=== PATIENT | female | born 1960 | race Caucasian/White ===

== ENCOUNTER → 2017-01-28 | Outpatient (CLI) | payer OTHER ==
[~2017-01-28] MED LIST: AMBI10TA PO; ASPI81TA21 PO; ATEN100T PO; AUGM500T34 PO; AUGM875T28 PO; BACITAB PO; CENTTAB PO; CETI10TA PO; ESTR625TA PO; FENO160T10 PO; FENO200C PO; FLUC10TA PO; K-TA10TA2 PO; LEVO50TA5 PO; LOPE2TAB3 PO; OYSCTAB PO; SERT25TA PO; TIZA4CAP3 PO; TRAM50TA2 PO; TRIA37.53 PO; VICO5TAB16 PO; VYTO10TA22 PO; WELLTAB40 PO
[2017-01-28 19:46] LABS: MEAN CORPUSCULAR HEMOGLOBIN 30.1 pg (27.0-33.0); MEAN CORPUSCULAR HGB CONC 32.8 g/dl (32.0-36.5); MEAN CORPUSCULAR VOLUME 91.8 fl (80.0-96.0); RED CELL DISTRIBUTION WIDTH 12.8 % (11.5-14.5); WHITE BLOOD COUNT 6.5 K/mm3 (4.0-10.0)
[2017-01-28 20:22] LABS: ALBUMIN 3.7 GM/DL (3.2-5.2); ALBUMIN/GLOBULIN RATIO 1.19 (1.00-1.93); BILIRUBIN,TOTAL 0.5 MG/DL (0.2-1.0); CALCIUM LEVEL 9.4 MG/DL (8.5-10.1); CREATININE FOR GFR 1.05 MG/DL (0.55-1.02); GLOMERULAR FILTRATION RATE 57.9 (>51); POTASSIUM SERUM 3.8 MEQ/L (3.5-5.1); TOTAL PROTEIN 6.8 GM/DL (6.4-8.2)
== END ==
LOC: M WUC 09:22
PROVIDERS: ATTEND Family Medicine
DX: E78.2 Mixed hyperlipidemia (principal); I10 Essential (primary) hypertension; E03.9 Hypothyroidism, unspecified

== ENCOUNTER 2017-06-10 18:18 | Emergency (ER) | payer OTHER ==
[~2017-06-10] VITALS: Ht 154.9 cm; Wt 172.0 kg
[2017-06-10] MEDS ORDERED: BIOT50005 SL (18:30)
[2017-06-10] MEDS ORDERED: VITA100T20 PO (18:30)
--- NOTE | 2017-06-10 20:00 | REPUSA ---
Clinical history: Pain, swelling. Findings: The common femoral, superficial femoral, popliteal, and other deep venous structures compre ss normally and demonstrate normal color Doppler flow. Normal venous waveforms with augmentation are seen. There is a cyst in the popliteal fossa measuring 3.0 x 0.8 x 1.2 cm. Impression: No evidence of deep vein thrombosis in the right femoral popliteal venous system. Right-sided Mir c yst.
[2017-06-10] MEDS ORDERED: NORCOTAB PO (20:54)
[2017-06-10] MEDS ORDERED: NORCO, ANEXSIA 5/325MG TABLET (HYDROcodone/ACETAMINOPHEN) PO ONE (21:00)
[2017-06-10 21:07] VITALS: BP 147/76
--- NOTE | 2017-06-11 07:42 | REP ---
Right 85 views: There are no comparisons. Mineralization and joint spaces are normal. There is no fracture or dislocation. There is no effusion. No calcifications or foreign bodies. Impression: Negative right knee. Sign taking Signed by Austin Wagner MD 06/11/2017 07:34 A
== END 2017-06-10 21:09 | disposition home or self-care (01) ==
LOC: M ED 20:00
DX: M71.21 Synovial cyst of popliteal space [Baker], right knee (principal); R93.7 Abnormal findings on diagnostic imaging of other parts of musculoskeletal system; I10 Essential (primary) hypertension; F33.9 Major depressive disorder, recurrent, unspecified; E06.3 Autoimmune thyroiditis; Z79.82 Long term (current) use of aspirin; Z79.899 Other long term (current) drug therapy; Z88.8 Allergy status to other drugs, medicaments and biological substances; Z98.0 Intestinal bypass and anastomosis status; Z98.890 Other specified postprocedural states

== ENCOUNTER → 2017-08-01 | Outpatient (REF) | payer OTHER | LOC: M LAB REF 08:45 | DX: L08.9 Local infection of the skin and subcutaneous tissue, unspecified (principal) ==

== ENCOUNTER 2017-10-06 17:46 | Emergency (ER) | payer OTHER ==
[2017-10-06 18:57] LABS: KETONE, URINE AUTO RFX NEGATIVE (NEGATIVE); MUCUS, URINE RFX SMALL (NEGATIVE); NITRITE, URINE AUTO RFX NEGATIVE (NEGATIVE); RBC, URINE AUTO RFX 3 /HPF (0-3); SPECIFIC GRAVITY UR AUTO RFX 1.024 (1.002-1.035); SQUAM EPITHELIAL CELL UR AURFX 1 /HPF (0-6); WBC, URINE AUTO RFX 4 /HPF (0-3)
[2017-10-06 19:06] LABS: LEUKOCYTE ESTERASE UR AUTO RFX 2+ (NEGATIVE)
[2017-10-06] MEDS: BACTRIM 160MG/800MG DS TAB PO (20:10)
== END 2017-10-06 20:16 | disposition home or self-care (01) ==
LOC: M ED 17:46
DX: N39.0 Urinary tract infection, site not specified (principal); I10 Essential (primary) hypertension; E78.00 Pure hypercholesterolemia, unspecified; E06.3 Autoimmune thyroiditis; Z98.84 Bariatric surgery status; Z79.899 Other long term (current) drug therapy; Z98.2 Presence of cerebrospinal fluid drainage device; Z79.890 Hormone replacement therapy; Z88.8 Allergy status to other drugs, medicaments and biological substances
CPT/HCPCS: 81001

== ENCOUNTER → 2018-02-06 | Outpatient (REF) | payer OTHER | LOC: M LAB REF 19:12 | DX: R30.0 Dysuria (principal) ==

== ENCOUNTER → 2018-03-15 | Outpatient (CLI) | payer OTHER | LOC: M WHC 13:04 | DX: Z12.31 Encounter for screening mammogram for malignant neoplasm of breast (principal) | CPT/HCPCS: 77067 ==

== ENCOUNTER → 2018-05-10 | Outpatient (CLI) | payer OTHER ==
[2018-05-10 15:38] LABS: FREE T4 1.17 NG/DL (0.76-1.46)
[2018-05-10 15:39] LABS: TOTAL T3 88.7 NG/DL (60.0-181.0)
== END ==
LOC: M WUC 11:03
DX: E04.2 Nontoxic multinodular goiter (principal); E03.9 Hypothyroidism, unspecified; E06.3 Autoimmune thyroiditis
CPT/HCPCS: 84480

== ENCOUNTER → 2018-05-10 | Outpatient (CLI) | payer OTHER ==
[2018-05-10 15:23] LABS: HEMOGLOBIN 13.4 g/dl (12.0-15.5); MEAN CORPUSCULAR HEMOGLOBIN 30.2 pg (27.0-33.0); MEAN CORPUSCULAR HGB CONC 32.7 g/dl (32.0-36.5); MEAN CORPUSCULAR VOLUME 92.3 fl (80.0-96.0); PLATELET COUNT, AUTOMATED 351 10^3/uL (150-450); RED BLOOD COUNT 4.44 10^6/uL (4.00-5.40); RED CELL DISTRIBUTION WIDTH 12.6 % (11.5-14.5); WHITE BLOOD COUNT 6.5 10^3/uL (4.0-10.0)
[2018-05-10 15:42] LABS: ALBUMIN 3.8 GM/DL (3.2-5.2); ALBUMIN/GLOBULIN RATIO 1.27 (1.00-1.93); ALKALINE PHOSPHATASE 54 U/L (45-117); ALT/SGPT 28 U/L (12-78); ANION GAP 9 MEQ/L (8-16); AST/SGOT 18 U/L (7-37); BILIRUBIN,TOTAL 0.5 MG/DL (0.2-1.0); BLOOD UREA NITROGEN 24 MG/DL (7-18); CALCIUM LEVEL 9.1 MG/DL (8.5-10.1); CARBON DIOXIDE LEVEL 30 MEQ/L (21-32); CHLORIDE LEVEL 104 MEQ/L (98-107); CHOLESTEROL LEVEL 196 MG/DL (<200); CHOLESTEROL RISK RATIO 3.015 (<5); CREATININE FOR GFR 1.07 MG/DL (0.55-1.30); GLOMERULAR FILTRATION RATE 56.3 (>51); GLUCOSE, FASTING 78 MG/DL (70-100); HDL CHOLESTEROL 65 MG/DL (>40); LDL CHOLESTEROL 112 MG/DL (<100); NON-HDL-C 131 MG/DL; POTASSIUM SERUM 3.5 MEQ/L (3.5-5.1); SODIUM LEVEL 143 MEQ/L (136-145); TOTAL 25(OH) VITAMIN D 48.2 NG/ML (30.0-100.0); TOTAL PROTEIN 6.8 GM/DL (6.4-8.2); TRIGLYCERIDES LEVEL 96 MG/DL (<150)
== END ==
LOC: M WUC 10:59
DX: E78.2 Mixed hyperlipidemia (principal); E55.9 Vitamin D deficiency, unspecified; I10 Essential (primary) hypertension
CPT/HCPCS: 84443

== ENCOUNTER → 2018-10-17 | Outpatient (CLI) | payer OTHER ==
[~2018-10-17] MED LIST changes: +BACT800T5 PO; +BIOT50005 SL; +DIFL150T PO; +HYDR-3715 PO; -SERT25TA PO; +SERT25TA85 PO; +TIZA4CAP PO; -TIZA4CAP3 PO; -VICO5TAB16 PO; +VICO5TAB17 PO; +VITA100T51 PO
[2018-10-17 13:03] LABS: ALBUMIN 4.2 GM/DL (3.2-5.2); BILIRUBIN,DIRECT 0.2 MG/DL (0.0-0.2); BILIRUBIN,TOTAL 0.4 MG/DL (0.2-1.0); CALCIUM LEVEL 9.5 MG/DL (8.5-10.1); CHOLESTEROL RISK RATIO 2.911 (<5); CREATININE FOR GFR 1.1 MG/DL (0.55-1.30); FREE T3 2.1 PG/ML (2.2-4.0); FREE T4 1.2 NG/DL (0.76-1.46); GLOMERULAR FILTRATION RATE 54.5 (>51); POTASSIUM SERUM 3.7 MEQ/L (3.5-5.1); THYROID STIMULATING HORMONE 3.49 uIU/ML (0.358-3.740); TOTAL 25(OH) VITAMIN D 55.1 NG/ML (30.0-100.0); TOTAL PROTEIN 6.7 GM/DL (6.4-8.2)
[2018-10-17 13:47] LABS: MALB URINE SIEMENS 7.3 MG/L
== END ==
LOC: M WUC 09:33
PROVIDERS: ATTEND Family Medicine
DX: E55.9 Vitamin D deficiency, unspecified (principal); I10 Essential (primary) hypertension; E78.2 Mixed hyperlipidemia; E03.9 Hypothyroidism, unspecified; E87.6 Hypokalemia

== ENCOUNTER → 2018-12-13 | Outpatient (CLI) | payer OTHER ==
[2018-12-13 13:17] LABS: HEMATOCRIT 39.9 % (36.0-47.0); HEMOGLOBIN 13.1 g/dl (12.0-15.5); MEAN CORPUSCULAR HEMOGLOBIN 30.5 pg (27.0-33.0); MEAN CORPUSCULAR HGB CONC 32.8 g/dl (32.0-36.5); MEAN CORPUSCULAR VOLUME 92.8 fl (80.0-96.0); PLATELET COUNT, AUTOMATED 321 10^3/uL (150-450)
[2018-12-13 13:18] LABS: ALBUMIN 3.8 GM/DL (3.2-5.2); BILIRUBIN,TOTAL 0.4 MG/DL (0.2-1.0); CALCIUM LEVEL 9.3 MG/DL (8.5-10.1); CHOLESTEROL RISK RATIO 2.703 (<5); CREATININE FOR GFR 1.11 MG/DL (0.55-1.30); GLOMERULAR FILTRATION RATE 53.9 (>51); PHOSPHORUS LEVEL 3.7 MG/DL (2.5-4.9); POTASSIUM SERUM 3.7 MEQ/L (3.5-5.1); THYROID STIMULATING HORMONE 5.19 uIU/ML (0.358-3.740); TOTAL PROTEIN 6.6 GM/DL (6.4-8.2)
[2018-12-13 13:20] LABS: PTH INTACT 24.7 PG/ML (18.5-88.0); TOTAL 25(OH) VITAMIN D 53.9 NG/ML (30.0-100.0)
== END ==
LOC: M WUC 08:47
PROVIDERS: ATTEND Family Medicine
DX: N18.3 Chronic kidney disease, stage 3 (moderate) (principal)

== ENCOUNTER → 2019-07-31 | Outpatient (CLI) | payer OTHER ==
--- NOTE | 2019-07-31 17:02 | REP ---
BILATERAL SCREENING DIGITAL MAMMOGRAM WITH 3D TOMOSYNTHESIS: There are no palpable abnormalities or other breast complaints. The the patient states she had a clinical breast examination November,. The Tyrer-Cuzick Lifetime Breast Cancer Risk Score is: 7.6% . Comparison is 03/15/2018. There are no other comparison studies available. There are scattered areas of fibroglandular density. There is no dominant mass, micro calcific cluster or architectural distortion that would indicate malignancy. 10 calcifications, unchanged. There are no additional findings on 3D tomosynthesiss. There is no change from the prior study. Impression: BIRADS/ACR category II mammogram. Benign findings. Recommendation: Routine annual screening mammography. This mammogram was interpreted with the aid of a FDA approved computer-aided detection system. A. Negative mammogram reports should not delay biopsy if a dominant or clinically suspicious mass is present. B. Not all breast cancers are identified by mammography or tomosynthesis. C. Adenosis and dense breasts may obscure an underlying neoplasm. Patient letter M1. Electronically Signed by Austin Wagner MD 07/31/2019 04:53 P
== END ==
LOC: M WHC 11:36
PROVIDERS: ATTEND Family Medicine
DX: Z12.31 Encounter for screening mammogram for malignant neoplasm of breast (principal)

== ENCOUNTER → 2020-08-11 | Outpatient (CLI) | payer OTHER ==
[2020-08-11 16:59] LABS: ALBUMIN 3.6 GM/DL (3.2-5.2); ALT/SGPT 34 U/L (12-78); BILIRUBIN,DIRECT 0.1 MG/DL (0.0-0.2); BILIRUBIN,TOTAL 0.4 MG/DL (0.2-1.0); BLOOD UREA NITROGEN 18 MG/DL (7-18); CALCIUM LEVEL 8.8 MG/DL (8.5-10.1); CARBON DIOXIDE LEVEL 30 MEQ/L (21-32); CHLORIDE LEVEL 104 MEQ/L (98-107); CHOLESTEROL LEVEL 211 MG/DL (<200); CHOLESTEROL RISK RATIO 3.576 (<5); CPK CREATINE PHOSPHOKINASE 34 U/L (26-192); CREATININE FOR GFR 0.91 MG/DL (0.55-1.30); FREE T3 2.3 PG/ML (2.2-4.0); FREE T4 1.07 NG/DL (0.76-1.46); GLOMERULAR FILTRATION RATE > 60.0 (>51); GLUCOSE, FASTING 95 MG/DL (70-100); HDL CHOLESTEROL 59 MG/DL (>40); LDL CHOLESTEROL 118 MG/DL (<100); NON-HDL-C 152 MG/DL; POTASSIUM SERUM 3.5 MEQ/L (3.5-5.1); SODIUM LEVEL 141 MEQ/L (136-145); TOTAL PROTEIN 6.3 GM/DL (6.4-8.2); TRIGLYCERIDES LEVEL 171 MG/DL (<150)
== END ==
LOC: M WUC 11:15
PROVIDERS: ATTEND Family Medicine
DX: E03.9 Hypothyroidism, unspecified (principal); E78.2 Mixed hyperlipidemia

== ENCOUNTER → 2020-08-24 | Outpatient (CLI) | payer OTHER ==
--- NOTE | 2020-08-24 19:24 | ECGEPIP ---
[facility] Test Date: 2020-08-24 Pat Name: ARMANDO VALLES Department: Room: - Gender: Female [employer] Molder: MICHELLE : 1960 Requested By: Vishal Nelson @ [facility] Order Number: [id number] Reading MD: Hiren Ramirez Measurements Intervals [place] Rate: 54 P: 33 MI: 178 QRS: 32 QRSD: 94 T: 19 QT: 422 QTc: 400 Interpretive Statements Sinus bradycardia NON-SPECIFIC STT ABNORMALITIES SIMILAR TO 04/26/2015, HR IS SLOWER TODAY Electronically Signed on 08-24-2020 19:24:58 EST by Hiren Ramirez
== END ==
LOC: M LAB 10:59
PROVIDERS: ATTEND Orthopaedic Surgery
DX: Z01.810 Encounter for preprocedural cardiovascular examination (principal); Z79.899 Other long term (current) drug therapy

== ENCOUNTER → 2021-01-06 | Outpatient (CLI) | payer OTHER, SELFPAY ==
[2021-01-06 11:23] LABS: BASO % 0.2 % (0.0-1.0); EOS % 0.1 % (0.0-3.0); HEMATOCRIT 44.3 % (36.0-47.0); HEMOGLOBIN 14.7 g/dl (12.0-15.5); LYMPH # 1.2 10^3/uL (1.5-5.0); LYMPH % 9.2 % (24.0-44.0); MEAN CORPUSCULAR HEMOGLOBIN 30.2 pg (27.0-33.0); MEAN CORPUSCULAR HGB CONC 33.2 g/dl (32.0-36.5); MEAN CORPUSCULAR VOLUME 91.2 fl (80.0-96.0); MONO # 0.4 10^3/uL (0.0-0.8); MONO % 2.7 % (2.0-8.0); NEUTROPHILS # 11.2 10^3/uL (1.5-8.5); NEUTROPHILS % 87.3 % (36.0-66.0); PLATELET COUNT, AUTOMATED 378 10^3/uL (150-450); RED BLOOD COUNT 4.86 10^6/uL (4.00-5.40); WHITE BLOOD COUNT 12.9 10^3/uL (4.0-10.0)
[2021-01-06 12:23] LABS: ALBUMIN 3.7 GM/DL (3.2-5.2); ALT/SGPT 31 U/L (12-78); BILIRUBIN,TOTAL 0.3 MG/DL (0.2-1.0); BLOOD UREA NITROGEN 18 MG/DL (7-18); CALCIUM LEVEL 9.1 MG/DL (8.5-10.1); CARBON DIOXIDE LEVEL 25 MEQ/L (21-32); CHLORIDE LEVEL 103 MEQ/L (98-107); CREATININE FOR GFR 0.74 MG/DL (0.55-1.30); GLOMERULAR FILTRATION RATE > 60.0 (>51); GLUCOSE, FASTING 102 MG/DL (70-100); HEPATITIS B SURFACE ANTIGEN NEGATIVE (NEGATIVE); SODIUM LEVEL 137 MEQ/L (136-145)
[2021-01-06 13:45] LABS: HEPATITIS B CORE ANTIBODY IGM NEGATIVE (NEGATIVE); HIV 1&2 SCREEN CENTAUR NEGATIVE (NEGATIVE)
[2021-01-06 13:46] LABS: HEPATITIS A ANTIBODY IGM NEGATIVE (NEGATIVE)
== END ==
LOC: M LAB 09:56
PROVIDERS: ATTEND Dermatology
DX: R21 Rash and other nonspecific skin eruption (principal)
CPT/HCPCS: 36415; 80053; 83516; 85025; 86705; 86709; 86803; 87340; 87389; G0463

== ENCOUNTER → 2021-01-06 | Outpatient (REF) | payer OTHER | LOC: M SFHCDERM 09:24 | PROVIDERS: ATTEND Dermatology | DX: R21 Rash and other nonspecific skin eruption (principal) ==

== ENCOUNTER → 2021-01-21 | Outpatient (REF) | payer OTHER ==
[~2021-01-21] MED LIST changes: -FENO200C PO; +FENO200C19 PO
== END ==
LOC: M LAB REF 18:22
PROVIDERS: ATTEND Physician Assistant
DX: L92.9 Granulomatous disorder of the skin and subcutaneous tissue, unspecified (principal)

== ENCOUNTER → 2021-02-24 | Outpatient (CLI) | payer OTHER ==
[~2021-02-24] MED LIST changes: +FENO200C PO; -FENO200C19 PO
[2021-02-24 11:31] LABS: BASO # 0.1 10^3/uL (0.0-0.2); BASO % 0.6 % (0.0-1.0); EOS # 0.1 10^3/uL (0.0-0.5); EOS % 0.6 % (0.0-3.0); HEMATOCRIT 44.5 % (36.0-47.0); HEMOGLOBIN 14.6 g/dl (12.0-15.5); LYMPH # 2.3 10^3/uL (1.5-5.0); LYMPH % 29.2 % (24.0-44.0); MEAN CORPUSCULAR HEMOGLOBIN 30.4 pg (27.0-33.0); MEAN CORPUSCULAR HGB CONC 32.8 g/dl (32.0-36.5); MEAN CORPUSCULAR VOLUME 92.5 fl (80.0-96.0); MONO # 0.7 10^3/uL (0.0-0.8); MONO % 8.2 % (2.0-8.0); NEUTROPHILS # 4.8 10^3/uL (1.5-8.5); NEUTROPHILS % 61.1 % (36.0-66.0); PLATELET COUNT, AUTOMATED 393 10^3/uL (150-450); RED BLOOD COUNT 4.81 10^6/uL (4.00-5.40); WHITE BLOOD COUNT 7.9 10^3/uL (4.0-10.0)
[2021-02-24 12:21] LABS: ALBUMIN 3.6 GM/DL (3.2-5.2); ALT/SGPT 26 U/L (12-78); BILIRUBIN,TOTAL 0.4 MG/DL (0.2-1.0); BLOOD UREA NITROGEN 11 MG/DL (7-18); CALCIUM LEVEL 9.3 MG/DL (8.8-10.2); CARBON DIOXIDE LEVEL 27 MEQ/L (21-32); CHLORIDE LEVEL 104 MEQ/L (98-107); CHOLESTEROL LEVEL 222 MG/DL (<200); CPK CREATINE PHOSPHOKINASE 47 U/L (26-192); FREE T3 2.6 PG/ML (2.2-4.0); FREE T4 1.22 NG/DL (0.76-1.46); GLOMERULAR FILTRATION RATE > 60.0 (>45); GLUCOSE, FASTING 95 MG/DL (70-100); HDL CHOLESTEROL 60 MG/DL (>40); LDL CHOLESTEROL 122 MG/DL (<100); NON-HDL-C 162 MG/DL; POTASSIUM SERUM 3.6 MEQ/L (3.5-5.1); SODIUM LEVEL 139 MEQ/L (136-145); TOTAL 25(OH) VITAMIN D 55.6 NG/ML (30.0-100.0); TOTAL PROTEIN 6.4 GM/DL (6.4-8.2); TRIGLYCERIDES LEVEL 202 MG/DL (<150); URIC ACID 6.5 MG/DL (2.6-6.0)
== END ==
LOC: M WUC 09:47
PROVIDERS: ATTEND Family Medicine
DX: E55.9 Vitamin D deficiency, unspecified (principal); I10 Essential (primary) hypertension; E03.9 Hypothyroidism, unspecified; E78.2 Mixed hyperlipidemia

== ENCOUNTER → 2021-03-24 | Outpatient (CLI) | payer OTHER ==
--- NOTE | 2021-03-24 08:39 | REP ---
INDICATION: THYROID DISORDER COMPARISON: None. TECHNIQUE: Avila scale and color evaluation of the thyroid gland using the linear high frequency transducer. FINDINGS: The thyroid gland is moderately heterogeneous with few scattered nodules noted. Right thyroid lobe measures 4.6 x 1.8 x 1.2 cm and includes 6 x 6 x 6 mm upper pole isoechoic nodule and 6 x 6 x 4 mm isoechoic midpole nodule. Isthmus measures 4.1 mm in width. Left thyroid lobe measures 3.5 x 1.4 x 1.3 cm and includes 3 x 5 x 3 mm midpole hypoechoic nodule, 7 x 4 x 8 mm lower pole hypoechoic nodule, and 7.6 x 6.2 x 4.0 mm upper pole hypoechoic nodule. IMPRESSION: Few indeterminate bilateral solid nodules measuring up to 8 mm maximal diameter in the left lobe. No prior examination is currently available for comparison. Consider follow-up examination in 12 months. <Electronically signed by David Bruno > 03/24/21 0835
== END ==
LOC: M RAD 07:22
PROVIDERS: ATTEND Family Medicine
DX: E07.9 Disorder of thyroid, unspecified (principal)

== ENCOUNTER → 2021-10-01 | Outpatient (CLI) | payer OTHER ==
[~2021-10-01] MED LIST changes: -FENO200C PO; +FENO200C19 PO
[2021-10-01 13:04] LABS: BLOOD UREA NITROGEN 10 MG/DL (7-18); CREATININE FOR GFR 0.75 MG/DL (0.55-1.30); GLOMERULAR FILTRATION RATE > 60.0 (>45); GLUCOSE, FASTING 120 MG/DL (70-100)
[2021-10-01 13:05] LABS: ALBUMIN 3.6 GM/DL (3.2-5.2); ALT/SGPT 27 U/L (12-78); BILIRUBIN,TOTAL 0.4 MG/DL (0.2-1.0); C REACTIVE PROTEIN QUANTITATIV 0.77 MG/DL (0.00-0.30); CALCIUM LEVEL 9.2 MG/DL (8.8-10.2); CARBON DIOXIDE LEVEL 28 MEQ/L (21-32); CHLORIDE LEVEL 105 MEQ/L (98-107); CHOLESTEROL LEVEL 294 MG/DL (<200); CHOLESTEROL RISK RATIO 6.125 (<5); FREE T3 2.7 PG/ML (2.2-4.0); FREE T4 1.02 NG/DL (0.76-1.46); HDL CHOLESTEROL 48 MG/DL (>40); LDL CHOLESTEROL 189 MG/DL (<100); NON-HDL-C 246 MG/DL; POTASSIUM SERUM 3.7 MEQ/L (3.5-5.1); SODIUM LEVEL 138 MEQ/L (136-145); TOTAL PROTEIN 6.5 GM/DL (6.4-8.2); TRIGLYCERIDES LEVEL 287 MG/DL (<150)
== END ==
LOC: M WUC 10:07
PROVIDERS: ATTEND Family Medicine
DX: L12.0 Bullous pemphigoid (principal); I10 Essential (primary) hypertension; E03.9 Hypothyroidism, unspecified; E78.2 Mixed hyperlipidemia

== ENCOUNTER → 2021-11-16 | Outpatient (CLI) | payer OTHER ==
[2021-11-16 10:49] LABS: ALBUMIN 3.5 GM/DL (3.2-5.2); ALT/SGPT 18 U/L (12-78); BILIRUBIN,DIRECT 0.1 MG/DL (0.0-0.2); BILIRUBIN,TOTAL 0.5 MG/DL (0.2-1.0); BLOOD UREA NITROGEN 13 MG/DL (7-18); CALCIUM LEVEL 8.5 MG/DL (8.8-10.2); CARBON DIOXIDE LEVEL 30 MEQ/L (21-32); CHLORIDE LEVEL 107 MEQ/L (98-107); CHOLESTEROL LEVEL 142 MG/DL (<200); CHOLESTEROL RISK RATIO 3.227 (<5); CREATININE FOR GFR 0.72 MG/DL (0.55-1.30); GLOMERULAR FILTRATION RATE > 60.0 (>45); GLUCOSE, FASTING 87 MG/DL (70-100); HDL CHOLESTEROL 44 MG/DL (>40); LDL CHOLESTEROL 65 MG/DL (<100); NON-HDL-C 98 MG/DL; POTASSIUM SERUM 3.7 MEQ/L (3.5-5.1); SODIUM LEVEL 140 MEQ/L (136-145); TOTAL PROTEIN 6.2 GM/DL (6.4-8.2); TRIGLYCERIDES LEVEL 164 MG/DL (<150); URIC ACID 4.8 MG/DL (2.6-6.0)
== END ==
LOC: M WUC 08:34
PROVIDERS: ATTEND Family Medicine
DX: E78.2 Mixed hyperlipidemia (principal); I10 Essential (primary) hypertension

== ENCOUNTER → 2022-02-09 | Outpatient (CLI) | payer OTHER ==
[~2022-02-09] MED LIST changes: -TRIA37.53 PO; +TRIA37.577 PO
== END ==
LOC: M WHC 12:26
PROVIDERS: ATTEND Family Medicine
DX: Z12.31 Encounter for screening mammogram for malignant neoplasm of breast (principal); N63.22 Unspecified lump in the left breast, upper inner quadrant

== ENCOUNTER → 2022-02-11 | Outpatient (CLI) | payer OTHER ==
[2022-02-11 16:24] LABS: BASO % 0.3 % (0.0-1.0); HEMATOCRIT 42.5 % (36.0-47.0); HEMOGLOBIN 14.2 g/dl (12.0-15.5); LYMPH # 0.8 10^3/uL (1.5-5.0); LYMPH % 7.2 % (24.0-44.0); MEAN CORPUSCULAR HEMOGLOBIN 29.6 pg (27.0-33.0); MEAN CORPUSCULAR HGB CONC 33.4 g/dl (32.0-36.5); MEAN CORPUSCULAR VOLUME 88.7 fl (80.0-96.0); MONO # 0.2 10^3/uL (0.0-0.8); MONO % 1.4 % (2.0-8.0); NEUTROPHILS # 10.1 10^3/uL (1.5-8.5); NEUTROPHILS % 90.6 % (36.0-66.0); PLATELET COUNT, AUTOMATED 363 10^3/uL (150-450); RED BLOOD COUNT 4.79 10^6/uL (4.00-5.40); WHITE BLOOD COUNT 11.1 10^3/uL (4.0-10.0)
[2022-02-11 16:36] LABS: ALBUMIN 3.9 GM/DL (3.2-5.2); ALT/SGPT 32 U/L (12-78); BILIRUBIN,TOTAL 0.3 MG/DL (0.2-1.0); BLOOD UREA NITROGEN 15 MG/DL (7-18); CALCIUM LEVEL 9.6 MG/DL (8.8-10.2); CARBON DIOXIDE LEVEL 25 MEQ/L (21-32); CHLORIDE LEVEL 106 MEQ/L (98-107); CREATININE FOR GFR 0.75 MG/DL (0.55-1.30); GLOMERULAR FILTRATION RATE > 60.0 (>45); GLUCOSE, FASTING 121 MG/DL (70-100); POTASSIUM SERUM 4.3 MEQ/L (3.5-5.1); RHEUMATOID FACTOR QUANT < 10.0 IU/ML (<15.0); SODIUM LEVEL 138 MEQ/L (136-145); TOTAL PROTEIN 7.3 GM/DL (6.4-8.2); URIC ACID 4.5 MG/DL (2.6-6.0)
[2022-02-11 16:50] LABS: ERYTHROCYTE SEDIMENTATION RATE 18 mm/hr (0-30)
== END ==
LOC: M LAB 15:06
PROVIDERS: ATTEND Nurse Practitioner Family
DX: L98.9 Disorder of the skin and subcutaneous tissue, unspecified (principal)

== ENCOUNTER → 2022-02-14 | Outpatient (CLI) | payer OTHER ==
[2022-02-14 13:48] LABS: ALBUMIN 3.8 GM/DL (3.2-5.2); BILIRUBIN,DIRECT 0.2 MG/DL (0.0-0.2); BILIRUBIN,TOTAL 0.5 MG/DL (0.2-1.0); CALCIUM LEVEL 9.6 MG/DL (8.8-10.2); CHOLESTEROL RISK RATIO 2.577 (<5); FREE T3 1.8 PG/ML (2.2-4.0); FREE T4 1.16 NG/DL (0.76-1.46); THYROID STIMULATING HORMONE 1.25 uIU/ML (0.358-3.740); TOTAL PROTEIN 6.7 GM/DL (6.4-8.2)
[2022-02-14 14:13] LABS: TOTAL 25(OH) VITAMIN D 81.5 NG/ML (30.0-100.0)
[2022-02-14 14:14] LABS: PTH INTACT 89.2 PG/ML (18.5-88.0)
== END ==
LOC: M LAB 12:16
PROVIDERS: ATTEND Family Medicine
DX: E03.9 Hypothyroidism, unspecified (principal); E83.51 Hypocalcemia; E78.2 Mixed hyperlipidemia

== ENCOUNTER → 2022-03-01 | Outpatient (REF) | payer OTHER ==
[~2022-03-01] MED LIST changes: +AMLO1TAB24 PO; +BENA25CA4 PO; +BUPR-69 PO; +DICL1GEL3 TOP; +ERGO500029 PO; +EZET-18 PO; +EZET10TA21 PO; +FURO20TA2 PO; +METO1TAB33 PO; +OMEP40CA5 PO; +PHEN37.58 PO; +PRED20TA PO; +ROSU20TA5 PO; +SERT50TA29 PO; +SYNT100T PO; -VYTO10TA22 PO
== END ==
LOC: M SFHCDERM 13:51
PROVIDERS: ATTEND Nurse Practitioner Family
DX: L73.9 Follicular disorder, unspecified (principal)

== ENCOUNTER → 2022-03-06 | Outpatient (CLI) | payer OTHER | LOC: M LABSMTC 09:00 | PROVIDERS: ATTEND Anesthesiology | DX: Z01.818 Encounter for other preprocedural examination (principal); Z11.52 Encounter for screening for COVID-19 ==

== ENCOUNTER 2022-03-09 07:58 | Day surgery (SDC) | payer OTHER ==
[~2022-03-09] VITALS: Ht 154.9 cm; Wt 86.2 kg
[~2022-03-09 07:58] MED LIST changes: +NS 1,000 ML IV ONE
[2022-03-09] MEDS ORDERED: LIDOCAINE 2% 100MG/5ML SDV (FOR ANES.) As Ordered ONE (09:34)
[2022-03-09] MEDS ORDERED: fentaNYL 100 MCG/2 ML INJECTION As Ordered ONE (09:34)
[2022-03-09] MEDS ORDERED: propofoL 500 MG/50 ML VIAL As Ordered ONE (09:34)
[2022-03-09 10:30] VITALS: BP 161/78
== END 2022-03-09 10:38 | disposition home or self-care (01) ==
LOC: M OPP 07:58
PROVIDERS: ATTEND Internal Medicine Gastroenterology
DX: D12.2 Benign neoplasm of ascending colon (principal); D12.4 Benign neoplasm of descending colon; C18.7 Malignant neoplasm of sigmoid colon; K64.0 First degree hemorrhoids; K22.89 Other specified disease of esophagus; Z98.84 Bariatric surgery status; Z98.0 Intestinal bypass and anastomosis status; K30 Functional dyspepsia; Z79.02 Long term (current) use of antithrombotics/antiplatelets; Z79.52 Long term (current) use of systemic steroids; Z79.891 Long term (current) use of opiate analgesic; Z79.899 Other long term (current) drug therapy; Z88.8 Allergy status to other drugs, medicaments and biological substances; I10 Essential (primary) hypertension; E06.3 Autoimmune thyroiditis; G47.30 Sleep apnea, unspecified; Z99.89 Dependence on other enabling machines and devices
CPT/HCPCS: 43239; 45380; 45381; 45385; 88305; J3010

== ENCOUNTER → 2022-03-18 | Outpatient (CLI) | payer OTHER ==
[~2022-03-18] MED LIST changes: -NS 1,000 ML IV ONE
[2022-03-18 13:04] LABS: BLOOD UREA NITROGEN 15 MG/DL (7-18); CALCIUM LEVEL 9.2 MG/DL (8.8-10.2); CARBON DIOXIDE LEVEL 27 MEQ/L (21-32); CHLORIDE LEVEL 104 MEQ/L (98-107); GLOMERULAR FILTRATION RATE > 60.0 (>45); GLUCOSE, FASTING 99 MG/DL (70-100); POTASSIUM SERUM 4.2 MEQ/L (3.5-5.1); SODIUM LEVEL 136 MEQ/L (136-145)
== END ==
LOC: M WUC 09:58
PROVIDERS: ATTEND Family Medicine
DX: I10 Essential (primary) hypertension (principal)

== ENCOUNTER → 2022-03-21 | Outpatient (CLI) | payer OTHER ==
[2022-03-21 17:14] LABS: ALBUMIN 3.6 GM/DL (3.2-5.2); BILIRUBIN,DIRECT 0.2 MG/DL (0.0-0.2); BILIRUBIN,TOTAL 0.5 MG/DL (0.2-1.0); CALCIUM LEVEL 9.4 MG/DL (8.8-10.2); CHOLESTEROL RISK RATIO 2.8 (<5); FREE T4 1.12 NG/DL (0.76-1.46); THYROID STIMULATING HORMONE 2.41 uIU/ML (0.358-3.740); TOTAL PROTEIN 6.5 GM/DL (6.4-8.2)
[2022-03-21 17:39] LABS: PTH INTACT 64.9 PG/ML (18.5-88.0); TOTAL 25(OH) VITAMIN D 71.9 NG/ML (30.0-100.0)
== END ==
LOC: M WUC 11:12
PROVIDERS: ATTEND Family Medicine
DX: E55.9 Vitamin D deficiency, unspecified (principal); E03.9 Hypothyroidism, unspecified; E78.2 Mixed hyperlipidemia

== ENCOUNTER 2022-05-14 09:44 | Inpatient (IN) | payer OTHER ==
[~2022-05-14] VITALS: Ht 154.9 cm; Wt 96.0 kg
[2022-05-14] MEDS: LEVOTHYROXINE 75MCG TABLET (0.075MG) PO SCH (06:00)
[2022-05-14] MEDS: EZETIMIBE 10MG TABLET (ZETIA) PO SCH (09:00)
[2022-05-14] MEDS: ENOXAPARIN 40MG/0.4ML SYRINGE (J1650 PER 10MG) SC SCH (09:00)
[2022-05-14] MEDS: METOPROLOL SUCC (TopROL XL) 100MG *XL* TAB PO SCH (09:00)
[2022-05-14] MEDS: buPROPion 100 MG TAB PO SCH (09:00)
[2022-05-14] MEDS: FLUCONAZOLE 50MG TABLET PO SCH (09:00)
[2022-05-14] MEDS: SERTRALINE HCL 50 MG TAB PO SCH (09:00)
[~2022-05-14 09:44] MED LIST changes: +FUROSEMIDE 20 MG TAB PO SCH
[2022-05-14] MEDS ORDERED: NS 1,000 ML IV ONE (10:15)
[2022-05-14] MEDS ORDERED: ONDANSETRON 4MG 2ML VIAL IV ONE (10:15)
[2022-05-14] MEDS ORDERED: MORPHINE 4 MG/ML 1ML VIAL/SYRINGE IV ONE (10:15)
[2022-05-14] MEDS ORDERED: PANTOPRAZOLE 40MG VIAL IV ONE (10:30)
[2022-05-14 10:31] LABS: BASO # 0.1 10^3/uL (0.0-0.2); BASO % 0.4 % (0.0-1.0); EOS # 0.1 10^3/uL (0.0-0.5); EOS % 0.6 % (0.0-3.0); HEMATOCRIT 42.1 % (36.0-47.0); LYMPH # 1.5 10^3/uL (1.5-5.0); LYMPH % 7.2 % (24.0-44.0); MEAN CORPUSCULAR HEMOGLOBIN 29.2 pg (27.0-33.0); MEAN CORPUSCULAR HGB CONC 33.3 g/dl (32.0-36.5); MEAN CORPUSCULAR VOLUME 87.7 fl (80.0-96.0); MONO # 0.5 10^3/uL (0.0-0.8); MONO % 2.5 % (2.0-8.0); NEUTROPHILS # 18.8 10^3/uL (1.5-8.5); NEUTROPHILS % 88.9 % (36.0-66.0); PLATELET COUNT, AUTOMATED 749 10^3/uL (150-450); WHITE BLOOD COUNT 21.1 10^3/uL (4.0-10.0)
[2022-05-14 10:42] LABS: INR 1.04; PROTHROMBIN TIME 13.8 SECONDS (12.5-14.5)
[2022-05-14 10:43] LABS: PARTIAL THROMBOPLASTIN TIME 28.4 SECONDS (24.8-34.2)
[2022-05-14 10:55] LABS: ALBUMIN 4.3 G/DL (3.2-5.2); BILIRUBIN,DIRECT 0.4 MG/DL (<0.4); BILIRUBIN,TOTAL 0.8 MG/DL (0.3-1.2); CK-MB VALUE MASS 2.7 NG/ML (<3.6); TOTAL PROTEIN 7.6 G/DL (5.7-8.2)
[2022-05-14] MEDS ORDERED: ISOVUE-370 76% 100ML VIAL As Ordered ONE (11:21)
[2022-05-14] MEDS: INSULIN LISPRO (NovoLOG) PER UNIT SC SCH ×2 (12:00→18:00)
[2022-05-14] MEDS ORDERED: PIPERACILLIN/TAZOBACTAM SOD 3.375 GM in D5W MINI-BAG PLUS 50 ML IV ONE (13:05)
[2022-05-14] MEDS ORDERED: LEVO75TA4 PO (13:50)
[2022-05-14] MEDS ORDERED: TIZA10TA PO (13:50)
[2022-05-14] MEDS ORDERED: AMLO1TAB25 PO (13:50)
[2022-05-14] MEDS ORDERED: ACET-897 PO (13:54)
[2022-05-14] MEDS ORDERED: HOME MED LIST COMPLETE! XX SCH (13:55)
[2022-05-14] MEDS ORDERED: GLUCOSE 4GM CHEW TABLET PO PRN (14:15)
[2022-05-14] MEDS ORDERED: ACETAMINOPHEN TAB 650MG DOSE (2X325MG) PO PRN (14:15)
[2022-05-14] MEDS ORDERED: GLUCAGON INJ 1MG VIAL SC PRN (14:15)
[2022-05-14] MEDS ORDERED: tiZANidine 4 MG TAB PO PRN (14:15)
[2022-05-14] MEDS ORDERED: DEXTROSE 50% 50 ML SYRINGE IV PRN (14:15)
[2022-05-14 14:51] LABS: CK-MB VALUE MASS 2.8 NG/ML (<3.6); MB/CK RELATIVE INDEX 11.2 (< OR =4)
[2022-05-14] MEDS: cefTRIAXone SOD 1 GM in D5W MINI-BAG PLUS 50 ML IV SCH (15:03)
[2022-05-14] MEDS ORDERED: ONDANSETRON 4MG 2ML VIAL IV PRN (15:50)
[2022-05-14] MEDS: metroNIDAZOLE (FLAGYL) 500MG TABLET PO SCH ×2 (17:13→21:26)
[2022-05-14] MEDS: NS 1,000 ML IV SCH (17:14)
[2022-05-14] MEDS: KETOROLAC 30 MG/ML 1ML VIAL IV SCH (18:26)
[2022-05-14 19:00] LABS: CK-MB VALUE MASS 2.4 NG/ML (<3.6); MB/CK RELATIVE INDEX 9.6 (< OR =4)
[2022-05-14] MEDS: ROSUVASTATIN 10 MG TAB (CRESTOR) PO SCH (21:26)
[2022-05-15] MEDS: INSULIN LISPRO (NovoLOG) PER UNIT SC SCH ×4 (01:35→18:00)
[2022-05-15] MEDS: NS 1,000 ML IV SCH (01:41)
[2022-05-15] MEDS: KETOROLAC 30 MG/ML 1ML VIAL IV SCH ×3 (01:42→15:47)
[2022-05-15] MEDS: traMADol 50 MG TAB PO PRN ×2 (03:39→20:02)
[2022-05-15] MEDS: metroNIDAZOLE (FLAGYL) 500MG TABLET PO SCH ×3 (08:31→22:54)
[2022-05-15] MEDS: LEVOTHYROXINE 75MCG TABLET (0.075MG) PO SCH (08:31)
[2022-05-15 08:48] LABS: HEMATOCRIT 34.1 % (36.0-47.0); MEAN CORPUSCULAR HEMOGLOBIN 29.6 pg (27.0-33.0); MEAN CORPUSCULAR HGB CONC 32.3 g/dl (32.0-36.5); MEAN CORPUSCULAR VOLUME 91.9 fl (80.0-96.0); RED BLOOD COUNT 3.71 10^6/uL (4.00-5.40); WHITE BLOOD COUNT 8.4 10^3/uL (4.0-10.0)
[2022-05-15 08:53] LABS: PLATELET COUNT, AUTOMATED 541 10^3/uL (150-450)
[2022-05-15 09:18] LABS: BLOOD UREA NITROGEN 22 MG/DL (9-23); CALCIUM LEVEL 9.2 MG/DL (8.3-10.6); CARBON DIOXIDE LEVEL 24 MMOL/L (20-31); CHLORIDE LEVEL 108 MMOL/L (98-107); CREATININE FOR GFR 0.68 MG/DL (0.55-1.30); FREE T4 1.24 NG/DL (0.89-1.76); GLOMERULAR FILTRATION RATE > 60.0 (>45); GLUCOSE, FASTING 100 MG/DL (74-106); MAGNESIUM LEVEL 1.6 MG/DL (1.8-2.4); PHOSPHORUS LEVEL 3.9 MG/DL (2.4-5.1); POTASSIUM SERUM 3.6 MMOL/L (3.5-5.1); SODIUM LEVEL 141 MMOL/L (136-145); THYROID STIMULATING HORMONE 2.556 uIU/ML (0.55-4.78)
[2022-05-15 09:31] VITALS: BP 150/78
[2022-05-15] MEDS ORDERED: oxyCODONE 5MG TAB PO ONE (10:10)
[2022-05-15] MEDS: SERTRALINE HCL 50 MG TAB PO SCH (10:51)
[2022-05-15] MEDS: EZETIMIBE 10MG TABLET (ZETIA) PO SCH (10:51)
[2022-05-15] MEDS: buPROPion 100 MG TAB PO SCH (10:52)
[2022-05-15] MEDS: ENOXAPARIN 40MG/0.4ML SYRINGE (J1650 PER 10MG) SC SCH (10:53)
[2022-05-15] MEDS: KCL 10MEQ/100ML SWI (KRUN) 10 MEQ in IV 1 EA IV SCH ×4 (10:53→15:48)
[2022-05-15] MEDS: FLUCONAZOLE 50MG TABLET PO SCH (11:06)
[2022-05-15] MEDS: METOPROLOL SUCC (TopROL XL) 100MG *XL* TAB PO SCH (11:07)
[2022-05-15] MEDS: MAG SULF 1GM/100ML (MAG RUN) 1 GM in IV 1 EA IV SCH ×2 (11:38→13:07)
[2022-05-15 12:00] VITALS: BP 154/82
[2022-05-15] MEDS: cefTRIAXone SOD 1 GM in D5W MINI-BAG PLUS 50 ML IV SCH (15:47)
[2022-05-15 16:00] VITALS: BP 144/78
[2022-05-15 19:52] VITALS: BP 142/80
[2022-05-15] MEDS: ROSUVASTATIN 10 MG TAB (CRESTOR) PO SCH (20:02)
[2022-05-16] VITALS: BP 158/73
[2022-05-16] MEDS: KETOROLAC 30 MG/ML 1ML VIAL IV SCH ×4 (00:01→23:32)
[2022-05-16 05:00] VITALS: BP 141/70
[2022-05-16] MEDS: INSULIN LISPRO (NovoLOG) PER UNIT SC SCH ×2 (06:00)
[2022-05-16 06:14] LABS: HEMATOCRIT 31.6 % (36.0-47.0); HEMOGLOBIN 10.2 g/dl (12.0-15.5); MEAN CORPUSCULAR HEMOGLOBIN 29.4 pg (27.0-33.0); MEAN CORPUSCULAR HGB CONC 32.3 g/dl (32.0-36.5); MEAN CORPUSCULAR VOLUME 91.1 fl (80.0-96.0); PLATELET COUNT, AUTOMATED 427 10^3/uL (150-450); RED BLOOD COUNT 3.47 10^6/uL (4.00-5.40); WHITE BLOOD COUNT 6.1 10^3/uL (4.0-10.0)
[2022-05-16] MEDS: LEVOTHYROXINE 75MCG TABLET (0.075MG) PO SCH (06:21)
[2022-05-16] MEDS: metroNIDAZOLE (FLAGYL) 500MG TABLET PO SCH ×3 (06:21→21:05)
[2022-05-16] MEDS ORDERED: BISACODYL 10 MG SUPP PR ONE (06:50)
[2022-05-16 07:00] LABS: BLOOD UREA NITROGEN 12 MG/DL (9-23); CALCIUM LEVEL 8.1 MG/DL (8.3-10.6); CARBON DIOXIDE LEVEL 22 MMOL/L (20-31); CHLORIDE LEVEL 107 MMOL/L (98-107); CREATININE FOR GFR 0.57 MG/DL (0.55-1.30); GLOMERULAR FILTRATION RATE > 60.0 (>45); GLUCOSE, FASTING 83 MG/DL (74-106); SODIUM LEVEL 140 MMOL/L (136-145)
[2022-05-16 07:15] VITALS: BP 145/70
[2022-05-16] MEDS: EZETIMIBE 10MG TABLET (ZETIA) PO SCH (10:34)
[2022-05-16] MEDS: FLUCONAZOLE 50MG TABLET PO SCH (10:34)
[2022-05-16] MEDS: METOPROLOL SUCC (TopROL XL) 100MG *XL* TAB PO SCH (10:34)
[2022-05-16] MEDS: buPROPion 100 MG TAB PO SCH (10:34)
[2022-05-16] MEDS: SERTRALINE HCL 50 MG TAB PO SCH (10:34)
[2022-05-16] MEDS: SODIUM CHLORIDE NASAL 0.65% SPRAY BTL (OCEAN) SCH ×2 (10:34→21:08)
[2022-05-16] MEDS: ENOXAPARIN 40MG/0.4ML SYRINGE (J1650 PER 10MG) SC SCH (10:35)
[2022-05-16 11:39] VITALS: BP 144/68
[2022-05-16] MEDS: traMADol 50 MG TAB PO PRN (13:20)
[2022-05-16] MEDS: cefTRIAXone SOD 1 GM in D5W MINI-BAG PLUS 50 ML IV SCH (17:04)
[2022-05-16 20:00] VITALS: BP 161/75
[2022-05-16] MEDS: ROSUVASTATIN 10 MG TAB (CRESTOR) PO SCH (21:05)
[2022-05-17] VITALS: BP 162/74
[2022-05-17 04:00] VITALS: BP 172/80
[2022-05-17 04:47] LABS: HEMATOCRIT 31.1 % (36.0-47.0); HEMOGLOBIN 10.4 g/dl (12.0-15.5); MEAN CORPUSCULAR HEMOGLOBIN 29.8 pg (27.0-33.0); MEAN CORPUSCULAR HGB CONC 33.4 g/dl (32.0-36.5); MEAN CORPUSCULAR VOLUME 89.1 fl (80.0-96.0); PLATELET COUNT, AUTOMATED 423 10^3/uL (150-450); RED BLOOD COUNT 3.49 10^6/uL (4.00-5.40)
[2022-05-17 05:00] VITALS: BP 190/88
[2022-05-17] MEDS: LEVOTHYROXINE 75MCG TABLET (0.075MG) PO SCH (05:08)
[2022-05-17] MEDS: METOPROLOL SUCC (TopROL XL) 100MG *XL* TAB PO SCH (05:08)
[2022-05-17] MEDS: metroNIDAZOLE (FLAGYL) 500MG TABLET PO SCH (05:08)
[2022-05-17 05:56] LABS: BLOOD UREA NITROGEN 11 MG/DL (9-23); CALCIUM LEVEL 8.3 MG/DL (8.3-10.6); CARBON DIOXIDE LEVEL 22 MMOL/L (20-31); CHLORIDE LEVEL 107 MMOL/L (98-107); CREATININE FOR GFR 0.66 MG/DL (0.55-1.30); GLOMERULAR FILTRATION RATE > 60.0 (>45); GLUCOSE, FASTING 98 MG/DL (74-106); MAGNESIUM LEVEL 1.5 MG/DL (1.8-2.4); PHOSPHORUS LEVEL 4.6 MG/DL (2.4-5.1); POTASSIUM SERUM 3.5 MMOL/L (3.5-5.1); SODIUM LEVEL 140 MMOL/L (136-145)
[2022-05-17 06:15] VITALS: BP 160/78
[2022-05-17] MEDS ORDERED: MAG SULF 1GM/100ML (MAG RUN) 1 GM in IV 1 EA IV ONE (07:05)
[2022-05-17 07:34] VITALS: BP 175/81
[2022-05-17] MEDS: buPROPion 100 MG TAB PO SCH (09:00)
[2022-05-17] MEDS: SERTRALINE HCL 50 MG TAB PO SCH (09:01)
[2022-05-17] MEDS: KETOROLAC 30 MG/ML 1ML VIAL IV SCH (09:01)
[2022-05-17] MEDS: EZETIMIBE 10MG TABLET (ZETIA) PO SCH (09:01)
[2022-05-17] MEDS: FLUCONAZOLE 50MG TABLET PO SCH (09:01)
[2022-05-17] MEDS: ENOXAPARIN 40MG/0.4ML SYRINGE (J1650 PER 10MG) SC SCH (09:02)
[2022-05-17 09:06] VITALS: BP 160/82
[2022-05-17] MEDS: SODIUM CHLORIDE NASAL 0.65% SPRAY BTL (OCEAN) SCH (09:06)
[2022-05-17] MEDS ORDERED: LOSA50TA28 PO (11:04)
== END 2022-05-17 12:20 | disposition home or self-care (01) | DRG 389 ==
LOC: M ED 11:11 → M ED INP 14:19 → M PCU 05-15 09:34
PROVIDERS: ADMIT Internal Medicine; ATTEND Internal Medicine
DX: K56.7 Ileus, unspecified (principal); C18.9 Malignant neoplasm of colon, unspecified; I10 Essential (primary) hypertension; E78.5 Hyperlipidemia, unspecified; E03.9 Hypothyroidism, unspecified; F41.9 Anxiety disorder, unspecified; G47.33 Obstructive sleep apnea (adult) (pediatric); E06.3 Autoimmune thyroiditis; K44.9 Diaphragmatic hernia without obstruction or gangrene; Z90.49 Acquired absence of other specified parts of digestive tract; Z98.84 Bariatric surgery status; Z90.710 Acquired absence of both cervix and uterus; E87.20 Acidosis, unspecified; Z79.890 Hormone replacement therapy; Z79.899 Other long term (current) drug therapy; Z88.8 Allergy status to other drugs, medicaments and biological substances

== ENCOUNTER 2022-05-29 18:29 | Inpatient (IN) | payer OTHER ==
[~2022-05-29] VITALS: Ht 154.9 cm; Wt 83.6 kg
[~2022-05-29 18:29] MED LIST changes: +ACET-897 PO; +AMLO1TAB25 PO; -FUROSEMIDE 20 MG TAB PO SCH; +LEVO75TA4 PO; +LOSA50TA28 PO; +TIZA10TA PO
[2022-05-29] MEDS ORDERED: NS 1,000 ML IV ONE (19:25)
[2022-05-29] MEDS ORDERED: ISOVUE-370 76% 100ML VIAL As Ordered ONE (19:49)
[2022-05-29 19:52] LABS: BASO % 0.3 % (0.0-1.0); EOS # 0.2 10^3/uL (0.0-0.5); EOS % 1.2 % (0.0-3.0); HEMATOCRIT 36.1 % (36.0-47.0); HEMOGLOBIN 11.6 g/dl (12.0-15.5); LYMPH # 0.7 10^3/uL (1.5-5.0); LYMPH % 5.8 % (24.0-44.0); MEAN CORPUSCULAR HGB CONC 32.1 g/dl (32.0-36.5); MEAN CORPUSCULAR VOLUME 90.3 fl (80.0-96.0); MONO # 0.8 10^3/uL (0.0-0.8); MONO % 6.8 % (2.0-8.0); NEUTROPHILS # 10.4 10^3/uL (1.5-8.5); NEUTROPHILS % 85.6 % (36.0-66.0); PLATELET COUNT, AUTOMATED 308 10^3/uL (150-450); WHITE BLOOD COUNT 12.1 10^3/uL (4.0-10.0)
[2022-05-29] MEDS: MORPHINE 2 MG/ML 1ML VIAL IV PRN (20:01)
[2022-05-29 20:14] LABS: LIPASE 22 U/L (12-53)
[2022-05-29 20:15] LABS: BILIRUBIN,DIRECT 0.2 MG/DL (<0.4)
[2022-05-29 20:19] LABS: BLOOD UREA NITROGEN 13 MG/DL (9-23); CARBON DIOXIDE LEVEL 22 MMOL/L (20-31); CHLORIDE LEVEL 101 MMOL/L (98-107); GLOMERULAR FILTRATION RATE > 60.0 (>45); GLUCOSE, FASTING 106 MG/DL (74-106); POTASSIUM SERUM 3.7 MMOL/L (3.5-5.1); SODIUM LEVEL 136 MMOL/L (136-145)
[2022-05-29 20:20] LABS: ALBUMIN 3.7 G/DL (3.2-5.2); ALKALINE PHOSPHATASE 90 U/L (46-116); ALT/SGPT 18 U/L (7.0-40); AST/SGOT 21 U/L (<34); BILIRUBIN,TOTAL 0.5 MG/DL (0.3-1.2); CALCIUM LEVEL 8.9 MG/DL (8.3-10.6); TOTAL PROTEIN 6.5 G/DL (5.7-8.2)
[2022-05-29] MEDS ORDERED: FURO20TA2 PO (21:43)
[2022-05-29] MEDS ORDERED: LOSA50TA28 PO (21:43)
[2022-05-29] MEDS ORDERED: HOME MED LIST COMPLETE! XX SCH (21:45)
[2022-05-29] MEDS ORDERED: PIPERACILLIN/TAZOBACTAM SOD 3.375 GM in D5W MINI-BAG PLUS 50 ML IV ONE (22:35)
[2022-05-29] MEDS ORDERED: ACETAMINOPHEN TAB 650MG DOSE (2X325MG) PO ONE (23:10)
[2022-05-30] MEDS: MORPHINE 2 MG/ML 1ML VIAL IV PRN (00:42)
[2022-05-30] MEDS ORDERED: ACETAMINOPHEN 500 MG TAB PO PRN (02:00)
[2022-05-30] MEDS ORDERED: NS 1,000 ML IV ONE (02:15)
[2022-05-30] MEDS ORDERED: ACETAMINOPHEN TAB 650MG DOSE (2X325MG) PO ONE (03:00)
[2022-05-30] MEDS ORDERED: VANCOMYCIN ORAL SOL 250MG/5ML ORAL SYRINGE PO ONE (03:00)
[2022-05-30] MEDS: HYDROMORPHONE HCL 0.5 MG/ 0.5 ML SYRINGE (J1170 PER 1) IV PRN ×6 (03:08→21:43)
[2022-05-30 03:59] VITALS: BP 142/73
[2022-05-30] MEDS: EZETIMIBE 10MG TABLET (ZETIA) PO SCH ×2 (04:25→22:05)
[2022-05-30] MEDS: LR 1,000 ML IV SCH ×3 (04:26→20:42)
[2022-05-30] MEDS: SERTRALINE HCL 50 MG TAB PO SCH ×2 (04:26→22:06)
[2022-05-30] MEDS: traMADol 50 MG TAB PO PRN ×2 (04:34→12:48)
[2022-05-30] MEDS ORDERED: ONDANSETRON 4MG 2ML VIAL IV PRN (05:10)
[2022-05-30] MEDS: HEPARIN SOD (PORCINE) 5000UNITS/ML 1ML VIAL/SYRINGE SC SCH ×3 (05:36→22:06)
[2022-05-30] MEDS: LEVOTHYROXINE 75MCG TABLET (0.075MG) PO SCH (05:36)
[2022-05-30 06:00] VITALS: BP 143/72
[2022-05-30 06:35] LABS: BLOOD UREA NITROGEN 10 MG/DL (9-23); CALCIUM LEVEL 8.5 MG/DL (8.3-10.6); CARBON DIOXIDE LEVEL 19 MMOL/L (20-31); CHLORIDE LEVEL 103 MMOL/L (98-107); CREATININE FOR GFR 0.72 MG/DL (0.55-1.30); GLOMERULAR FILTRATION RATE > 60.0 (>45); GLUCOSE, FASTING 94 MG/DL (74-106); POTASSIUM SERUM 3.5 MMOL/L (3.5-5.1); SODIUM LEVEL 136 MMOL/L (136-145)
[2022-05-30 07:37] LABS: BASO # 0.1 10^3/uL (0.0-0.2); BASO % 0.3 % (0.0-1.0); EOS % 0.2 % (0.0-3.0); HEMATOCRIT 36.4 % (36.0-47.0); LYMPH # 1.1 10^3/uL (1.5-5.0); LYMPH % 6.8 % (24.0-44.0); MEAN CORPUSCULAR HEMOGLOBIN 29.7 pg (27.0-33.0); MEAN CORPUSCULAR VOLUME 90.1 fl (80.0-96.0); MONO # 0.7 10^3/uL (0.0-0.8); MONO % 4.5 % (2.0-8.0); NEUTROPHILS # 14.1 10^3/uL (1.5-8.5); NEUTROPHILS % 87.8 % (36.0-66.0); PLATELET COUNT, AUTOMATED 347 10^3/uL (150-450); RED BLOOD COUNT 4.04 10^6/uL (4.00-5.40); WHITE BLOOD COUNT 16.1 10^3/uL (4.0-10.0)
[2022-05-30] MEDS: METOPROLOL SUCC (TopROL XL) 100MG *XL* TAB PO SCH (08:48)
[2022-05-30] MEDS: buPROPion 100 MG TAB PO SCH ×2 (08:48→22:05)
[2022-05-30] MEDS: FIDAXOMICIN 200 MG TAB (DIFICID) PO SCH ×2 (08:48→22:55)
[2022-05-30] MEDS: ACETAMINOPHEN TAB 650MG DOSE (2X325MG) PO PRN ×2 (08:49→14:38)
[2022-05-30] MEDS ORDERED: VANCOMYCIN ORAL SOL 250MG/5ML ORAL SYRINGE PO SCH (10:00)
[2022-05-30] MEDS ORDERED: DIAPER RELIEF PASTE (DESITIN) 60GM TOP PRN (10:15)
[2022-05-30] MEDS: DICYCLOMINE 10 MG CAP PO PRN (10:49)
[2022-05-30] MEDS: ONDANSETRON 4MG 2ML VIAL IV PRN ×2 (10:49→15:47)
[2022-05-30 12:39] LABS: MAGNESIUM LEVEL 1.3 MG/DL (1.8-2.4)
[2022-05-30 13:00] LABS: BLOOD UREA NITROGEN 10 MG/DL (9-23); CALCIUM LEVEL 7.9 MG/DL (8.3-10.6); CARBON DIOXIDE LEVEL 20 MMOL/L (20-31); CHLORIDE LEVEL 103 MMOL/L (98-107); CREATININE FOR GFR 0.67 MG/DL (0.55-1.30); GLOMERULAR FILTRATION RATE > 60.0 (>45); GLUCOSE, FASTING 107 MG/DL (74-106); POTASSIUM SERUM 2.9 MMOL/L (3.5-5.1); SODIUM LEVEL 135 MMOL/L (136-145)
[2022-05-30] MEDS ORDERED: POTASSIUM CHLORIDE 10MEQ SR TABLET PO ONE (13:15)
[2022-05-30] MEDS: MAG SULF 1GM/100ML (MAG RUN) 1 GM in IV 1 EA IV SCH ×4 (13:30→17:05)
[2022-05-30] MEDS: KCL 10MEQ/100ML SWI (KRUN) 10 MEQ in IV 1 EA IV SCH ×5 (14:52→22:06)
[2022-05-30 16:16] VITALS: BP 140/67
[2022-05-30 17:52] LABS: BLOOD UREA NITROGEN 9 MG/DL (9-23); CALCIUM LEVEL 8.5 MG/DL (8.3-10.6); CARBON DIOXIDE LEVEL 18 MMOL/L (20-31); CHLORIDE LEVEL 101 MMOL/L (98-107); CREATININE FOR GFR 0.65 MG/DL (0.55-1.30); GLOMERULAR FILTRATION RATE > 60.0 (>45); GLUCOSE, FASTING 109 MG/DL (74-106); POTASSIUM SERUM 3.4 MMOL/L (3.5-5.1); SODIUM LEVEL 133 MMOL/L (136-145)
[2022-05-30 17:53] LABS: CK-MB VALUE MASS < 1.0 NG/ML (<3.6)
[2022-05-30 17:54] LABS: MAGNESIUM LEVEL 2.4 MG/DL (1.8-2.4)
[2022-05-30 17:57] LABS: CPK CREATINE PHOSPHOKINASE 101 U/L (34-145); MB/CK RELATIVE INDEX 0.99 (< OR =4)
[2022-05-30 19:19] LABS: CK-MB VALUE MASS < 1.0 NG/ML (<3.6)
[2022-05-30 19:23] LABS: CPK CREATINE PHOSPHOKINASE 92 U/L (34-145); MB/CK RELATIVE INDEX 1.08 (< OR =4)
[2022-05-30 20:18] VITALS: BP 136/65
[2022-05-30] MEDS: ROSUVASTATIN 10 MG TAB (CRESTOR) PO SCH (22:05)
[2022-05-31 00:16] VITALS: BP 138/65
[2022-05-31 01:04] LABS: MAGNESIUM LEVEL 1.9 MG/DL (1.8-2.4)
[2022-05-31 01:09] LABS: BLOOD UREA NITROGEN 8 MG/DL (9-23); CARBON DIOXIDE LEVEL 21 MMOL/L (20-31); CHLORIDE LEVEL 104 MMOL/L (98-107); CREATININE FOR GFR 0.62 MG/DL (0.55-1.30); GLOMERULAR FILTRATION RATE > 60.0 (>45); GLUCOSE, FASTING 102 MG/DL (74-106); POTASSIUM SERUM 3.8 MMOL/L (3.5-5.1); SODIUM LEVEL 134 MMOL/L (136-145)
[2022-05-31] MEDS: HYDROMORPHONE HCL 0.5 MG/ 0.5 ML SYRINGE (J1170 PER 1) IV PRN ×6 (01:14→21:24)
[2022-05-31 03:55] VITALS: BP 142/65
[2022-05-31 05:46] LABS: BASO # 0.1 10^3/uL (0.0-0.2); BASO % 0.6 % (0.0-1.0); EOS # 0.2 10^3/uL (0.0-0.5); EOS % 1.7 % (0.0-3.0); HEMATOCRIT 31.2 % (36.0-47.0); HEMOGLOBIN 10.2 g/dl (12.0-15.5); LYMPH # 1.5 10^3/uL (1.5-5.0); LYMPH % 14.5 % (24.0-44.0); MEAN CORPUSCULAR HEMOGLOBIN 29.2 pg (27.0-33.0); MEAN CORPUSCULAR HGB CONC 32.7 g/dl (32.0-36.5); MEAN CORPUSCULAR VOLUME 89.4 fl (80.0-96.0); MONO # 1.1 10^3/uL (0.0-0.8); MONO % 10.5 % (2.0-8.0); NEUTROPHILS # 7.6 10^3/uL (1.5-8.5); NEUTROPHILS % 72.4 % (36.0-66.0); PLATELET COUNT, AUTOMATED 240 10^3/uL (150-450); RED BLOOD COUNT 3.49 10^6/uL (4.00-5.40); WHITE BLOOD COUNT 10.4 10^3/uL (4.0-10.0)
[2022-05-31 06:05] LABS: MAGNESIUM LEVEL 1.7 MG/DL (1.8-2.4)
[2022-05-31 06:10] LABS: ALBUMIN 2.8 G/DL (3.2-5.2); ALKALINE PHOSPHATASE 95 U/L (46-116); ALT/SGPT 24 U/L (7.0-40); AST/SGOT 19 U/L (<34); BILIRUBIN,TOTAL 0.4 MG/DL (0.3-1.2); BLOOD UREA NITROGEN 9 MG/DL (9-23); CALCIUM LEVEL 8.2 MG/DL (8.3-10.6); CARBON DIOXIDE LEVEL 24 MMOL/L (20-31); CHLORIDE LEVEL 103 MMOL/L (98-107); CREATININE FOR GFR 0.65 MG/DL (0.55-1.30); GLOMERULAR FILTRATION RATE > 60.0 (>45); GLUCOSE, FASTING 95 MG/DL (74-106); POTASSIUM SERUM 3.4 MMOL/L (3.5-5.1); SODIUM LEVEL 137 MMOL/L (136-145); TOTAL PROTEIN 5.3 G/DL (5.7-8.2)
[2022-05-31] MEDS: LEVOTHYROXINE 75MCG TABLET (0.075MG) PO SCH (06:26)
[2022-05-31] MEDS: LR 1,000 ML IV SCH ×3 (06:26→18:39)
[2022-05-31] MEDS: HEPARIN SOD (PORCINE) 5000UNITS/ML 1ML VIAL/SYRINGE SC SCH ×3 (06:26→21:24)
[2022-05-31 08:50] VITALS: BP 138/76
[2022-05-31] MEDS: FIDAXOMICIN 200 MG TAB (DIFICID) PO SCH ×2 (09:42→21:22)
[2022-05-31] MEDS: buPROPion 100 MG TAB PO SCH ×2 (09:42→21:22)
[2022-05-31] MEDS: METOPROLOL SUCC (TopROL XL) 100MG *XL* TAB PO SCH (09:49)
[2022-05-31] MEDS ORDERED: KCL 10MEQ/100ML SWI (KRUN) 10 MEQ in IV 1 EA IV ONE (10:00)
[2022-05-31] MEDS ORDERED: ALPRAZolam 0.25 MG TAB PO ONE (10:10)
[2022-05-31 12:50] VITALS: BP 135/91
[2022-05-31] MEDS: POTASSIUM CHLORIDE 10MEQ SR TABLET PO SCH (13:15)
[2022-05-31] MEDS: MAG SULF 1GM/100ML (MAG RUN) 1 GM in IV 1 EA IV SCH ×2 (13:19→15:20)
[2022-05-31] MEDS: traMADol 50 MG TAB PO PRN (15:25)
[2022-05-31 17:14] VITALS: BP 146/70
[2022-05-31 20:37] VITALS: BP 142/72
[2022-05-31] MEDS: EZETIMIBE 10MG TABLET (ZETIA) PO SCH (21:22)
[2022-05-31] MEDS: ROSUVASTATIN 10 MG TAB (CRESTOR) PO SCH (21:23)
[2022-05-31] MEDS: SERTRALINE HCL 50 MG TAB PO SCH (21:23)
[2022-06-01] VITALS (7 sets, daily range): BP systolic 135–165; BP diastolic 53–78
[2022-06-01] MEDS: LR 1,000 ML IV SCH ×3 (00:11→22:15)
[2022-06-01] MEDS: DICYCLOMINE 10 MG CAP PO PRN (00:20)
[2022-06-01] MEDS: HYDROMORPHONE HCL 0.5 MG/ 0.5 ML SYRINGE (J1170 PER 1) IV PRN ×5 (02:07→22:12)
[2022-06-01 05:18] LABS: BASO % 0.3 % (0.0-1.0); EOS # 0.5 10^3/uL (0.0-0.5); HEMATOCRIT 30.7 % (36.0-47.0); HEMOGLOBIN 9.9 g/dl (12.0-15.5); LYMPH # 1.2 10^3/uL (1.5-5.0); LYMPH % 18.5 % (24.0-44.0); MEAN CORPUSCULAR HEMOGLOBIN 29.3 pg (27.0-33.0); MEAN CORPUSCULAR HGB CONC 32.2 g/dl (32.0-36.5); MEAN CORPUSCULAR VOLUME 90.8 fl (80.0-96.0); MONO # 0.8 10^3/uL (0.0-0.8); NEUTROPHILS # 3.9 10^3/uL (1.5-8.5); NEUTROPHILS % 60.3 % (36.0-66.0); PLATELET COUNT, AUTOMATED 223 10^3/uL (150-450); RED BLOOD COUNT 3.38 10^6/uL (4.00-5.40); WHITE BLOOD COUNT 6.5 10^3/uL (4.0-10.0)
[2022-06-01] MEDS: HEPARIN SOD (PORCINE) 5000UNITS/ML 1ML VIAL/SYRINGE SC SCH ×3 (05:46→22:14)
[2022-06-01] MEDS: LEVOTHYROXINE 75MCG TABLET (0.075MG) PO SCH (05:46)
[2022-06-01 05:51] LABS: MAGNESIUM LEVEL 1.6 MG/DL (1.8-2.4)
[2022-06-01 05:56] LABS: ALBUMIN 2.8 G/DL (3.2-5.2); ALKALINE PHOSPHATASE 85 U/L (46-116); ALT/SGPT 16 U/L (7.0-40); AST/SGOT 13 U/L (<34); BILIRUBIN,TOTAL 0.3 MG/DL (0.3-1.2); BLOOD UREA NITROGEN < 5 MG/DL (9-23); CALCIUM LEVEL 8.2 MG/DL (8.3-10.6); CARBON DIOXIDE LEVEL 22 MMOL/L (20-31); CHLORIDE LEVEL 106 MMOL/L (98-107); CREATININE FOR GFR 0.54 MG/DL (0.55-1.30); GLOMERULAR FILTRATION RATE > 60.0 (>45); GLUCOSE, FASTING 94 MG/DL (74-106); POTASSIUM SERUM 3.4 MMOL/L (3.5-5.1); SODIUM LEVEL 138 MMOL/L (136-145); TOTAL PROTEIN 5.3 G/DL (5.7-8.2)
[2022-06-01] MEDS: MAG SULF 1GM/100ML (MAG RUN) 1 GM in IV 1 EA IV SCH ×4 (08:26→12:13)
[2022-06-01] MEDS: FIDAXOMICIN 200 MG TAB (DIFICID) PO SCH ×2 (08:26→22:13)
[2022-06-01] MEDS: buPROPion 100 MG TAB PO SCH ×2 (08:26→22:14)
[2022-06-01] MEDS: LACTOBACILLUS ACIDOPHILUS CAP (BACID) PO SCH ×2 (08:26→17:38)
[2022-06-01] MEDS: POTASSIUM CHLORIDE 10MEQ SR TABLET PO SCH (08:27)
[2022-06-01] MEDS: METOPROLOL SUCC (TopROL XL) 100MG *XL* TAB PO SCH (08:27)
[2022-06-01] MEDS ORDERED: ALPRAZolam 0.25 MG TAB PO ONE (14:00)
[2022-06-01] MEDS ORDERED: MAG SULF 1GM/100ML (MAG RUN) 1 GM in IV 1 EA IV ONE (14:15)
[2022-06-01] MEDS ORDERED: ISOVUE-370 76% 100ML VIAL As Ordered ONE (15:44)
[2022-06-01] MEDS: SERTRALINE HCL 50 MG TAB PO SCH (22:14)
[2022-06-01] MEDS: ROSUVASTATIN 10 MG TAB (CRESTOR) PO SCH (22:14)
[2022-06-01] MEDS: EZETIMIBE 10MG TABLET (ZETIA) PO SCH (22:14)
[2022-06-01] MEDS ORDERED: PREPARATION H OINTMENT (HEMORRHOID) TOP PRN (23:05)
[2022-06-01] MEDS ORDERED: SODIUM CHLORIDE NASAL 0.65% SPRAY BTL (OCEAN) PRN (23:05)
[2022-06-02] MEDS: DICYCLOMINE 10 MG CAP PO PRN (00:03)
[2022-06-02] MEDS: HYDROMORPHONE HCL 0.5 MG/ 0.5 ML SYRINGE (J1170 PER 1) IV PRN ×3 (01:41→11:32)
[2022-06-02 04:00] VITALS: BP 159/74
[2022-06-02 04:58] LABS: BASO % 0.6 % (0.0-1.0); EOS # 0.3 10^3/uL (0.0-0.5); EOS % 5.8 % (0.0-3.0); HEMATOCRIT 29.8 % (36.0-47.0); HEMOGLOBIN 9.5 g/dl (12.0-15.5); LYMPH # 1.2 10^3/uL (1.5-5.0); MEAN CORPUSCULAR HEMOGLOBIN 28.4 pg (27.0-33.0); MEAN CORPUSCULAR HGB CONC 31.9 g/dl (32.0-36.5); MEAN CORPUSCULAR VOLUME 89.2 fl (80.0-96.0); MONO # 0.7 10^3/uL (0.0-0.8); MONO % 13.1 % (2.0-8.0); NEUTROPHILS # 3.1 10^3/uL (1.5-8.5); NEUTROPHILS % 57.9 % (36.0-66.0); PLATELET COUNT, AUTOMATED 263 10^3/uL (150-450); RED BLOOD COUNT 3.34 10^6/uL (4.00-5.40); WHITE BLOOD COUNT 5.3 10^3/uL (4.0-10.0)
[2022-06-02 05:47] LABS: MAGNESIUM LEVEL 1.6 MG/DL (1.8-2.4)
[2022-06-02 05:58] LABS: ALBUMIN 2.6 G/DL (3.2-5.2); ALKALINE PHOSPHATASE 81 U/L (46-116); ALT/SGPT 16 U/L (7.0-40); AST/SGOT 12 U/L (<34); BILIRUBIN,TOTAL 0.3 MG/DL (0.3-1.2); BLOOD UREA NITROGEN < 5 MG/DL (9-23); CALCIUM LEVEL 8.2 MG/DL (8.3-10.6); CARBON DIOXIDE LEVEL 25 MMOL/L (20-31); CHLORIDE LEVEL 105 MMOL/L (98-107); CREATININE FOR GFR 0.52 MG/DL (0.55-1.30); GLOMERULAR FILTRATION RATE > 60.0 (>45); GLUCOSE, FASTING 96 MG/DL (74-106); POTASSIUM SERUM 3.5 MMOL/L (3.5-5.1); SODIUM LEVEL 139 MMOL/L (136-145)
[2022-06-02] MEDS: LEVOTHYROXINE 75MCG TABLET (0.075MG) PO SCH (06:07)
[2022-06-02] MEDS: HEPARIN SOD (PORCINE) 5000UNITS/ML 1ML VIAL/SYRINGE SC SCH ×3 (06:07→21:01)
[2022-06-02] MEDS: LR 1,000 ML IV SCH ×2 (06:08→17:32)
[2022-06-02] MEDS: traMADol 50 MG TAB PO PRN ×2 (06:13→21:00)
[2022-06-02 07:41] VITALS: BP 164/78
[2022-06-02] MEDS: LACTOBACILLUS ACIDOPHILUS CAP (BACID) PO SCH ×2 (08:44→17:32)
[2022-06-02] MEDS: buPROPion 100 MG TAB PO SCH ×2 (08:44→21:00)
[2022-06-02] MEDS: FIDAXOMICIN 200 MG TAB (DIFICID) PO SCH ×2 (08:44→21:00)
[2022-06-02] MEDS: POTASSIUM CHLORIDE 10MEQ SR TABLET PO SCH (08:44)
[2022-06-02] MEDS: MAG SULF 1GM/100ML (MAG RUN) 1 GM in IV 1 EA IV SCH ×3 (08:44→11:25)
[2022-06-02] MEDS: METOPROLOL SUCC (TopROL XL) 100MG *XL* TAB PO SCH (08:45)
[2022-06-02 12:00] VITALS: BP 148/70
[2022-06-02 15:43] LABS: PERCENT SATURATION 9.4 % (13.2-45.0)
[2022-06-02 15:45] LABS: FERRITIN 39.4 NG/ML (7.3-270.7)
[2022-06-02 15:48] VITALS: BP 168/70
[2022-06-02] MEDS ORDERED: PILL CUTTER 1 EACH XX PRN (16:50)
[2022-06-02] MEDS: ACETAMINOPHEN TAB 650MG DOSE (2X325MG) PO PRN (17:33)
[2022-06-02 20:00] VITALS: BP 144/72
[2022-06-02] MEDS: ROSUVASTATIN 10 MG TAB (CRESTOR) PO SCH (20:59)
[2022-06-02] MEDS ORDERED: LOSARTAN 25 MG TAB PO SCH (21:00)
[2022-06-02] MEDS: SERTRALINE HCL 50 MG TAB PO SCH (21:00)
[2022-06-02] MEDS: EZETIMIBE 10MG TABLET (ZETIA) PO SCH (21:00)
[2022-06-03] MEDS: DICYCLOMINE 10 MG CAP PO PRN (00:52)
[2022-06-03 04:00] VITALS: BP 155/74
[2022-06-03 05:43] LABS: BASO # 0.1 10^3/uL (0.0-0.2); BASO % 0.8 % (0.0-1.0); EOS # 0.3 10^3/uL (0.0-0.5); EOS % 5.2 % (0.0-3.0); HEMATOCRIT 32.2 % (36.0-47.0); HEMOGLOBIN 10.2 g/dl (12.0-15.5); LYMPH # 1.4 10^3/uL (1.5-5.0); LYMPH % 23.5 % (24.0-44.0); MEAN CORPUSCULAR HEMOGLOBIN 28.5 pg (27.0-33.0); MEAN CORPUSCULAR HGB CONC 31.7 g/dl (32.0-36.5); MEAN CORPUSCULAR VOLUME 89.9 fl (80.0-96.0); MONO # 0.7 10^3/uL (0.0-0.8); MONO % 11.9 % (2.0-8.0); NEUTROPHILS # 3.5 10^3/uL (1.5-8.5); NEUTROPHILS % 56.5 % (36.0-66.0); PLATELET COUNT, AUTOMATED 295 10^3/uL (150-450); RED BLOOD COUNT 3.58 10^6/uL (4.00-5.40); WHITE BLOOD COUNT 6.1 10^3/uL (4.0-10.0)
[2022-06-03 06:00] LABS: MAGNESIUM LEVEL 1.8 MG/DL (1.8-2.4)
[2022-06-03 06:07] LABS: ALBUMIN 2.7 G/DL (3.2-5.2); ALKALINE PHOSPHATASE 83 U/L (46-116); ALT/SGPT 17 U/L (7.0-40); AST/SGOT 15 U/L (<34); BILIRUBIN,TOTAL 0.3 MG/DL (0.3-1.2); BLOOD UREA NITROGEN < 5 MG/DL (9-23); CALCIUM LEVEL 8.6 MG/DL (8.3-10.6); CARBON DIOXIDE LEVEL 24 MMOL/L (20-31); CHLORIDE LEVEL 105 MMOL/L (98-107); CREATININE FOR GFR 0.56 MG/DL (0.55-1.30); GLOMERULAR FILTRATION RATE > 60.0 (>45); GLUCOSE, FASTING 89 MG/DL (74-106); SODIUM LEVEL 141 MMOL/L (136-145); TOTAL PROTEIN 5.1 G/DL (5.7-8.2)
[2022-06-03] MEDS: LR 1,000 ML IV SCH (06:16)
[2022-06-03] MEDS: LEVOTHYROXINE 75MCG TABLET (0.075MG) PO SCH (06:16)
[2022-06-03] MEDS: HEPARIN SOD (PORCINE) 5000UNITS/ML 1ML VIAL/SYRINGE SC SCH (06:16)
[2022-06-03] MEDS: traMADol 50 MG TAB PO PRN (06:17)
[2022-06-03] MEDS ORDERED: FIDA200TA PO (06:55)
[2022-06-03] MEDS ORDERED: MAGNESIUM OXIDE 400MG TAB (MAG-OX) PO ONE (06:55)
[2022-06-03] MEDS: buPROPion 100 MG TAB PO SCH (08:33)
[2022-06-03] MEDS: LACTOBACILLUS ACIDOPHILUS CAP (BACID) PO SCH (08:33)
[2022-06-03] MEDS: FIDAXOMICIN 200 MG TAB (DIFICID) PO SCH (08:33)
[2022-06-03 08:34] VITALS: BP 157/70
[2022-06-03] MEDS: METOPROLOL SUCC (TopROL XL) 100MG *XL* TAB PO SCH (08:34)
[2022-06-03] MEDS ORDERED: RISATAB3 PO (09:40)
[2022-06-03] MEDS ORDERED: DICY1CAP8 PO (09:40)
== END 2022-06-03 11:02 | disposition home or self-care (01) | DRG 872 ==
LOC: M ED 18:29 → M ED INP 05-30 01:57 → ENRESERV 05-30 02:26 → M MSPAV 05-30 03:38 → M PCU 05-30 16:05
PROVIDERS: ADMIT Internal Medicine; ATTEND Internal Medicine
DX: A41.9 Sepsis, unspecified organism (principal); C18.9 Malignant neoplasm of colon, unspecified; A04.72 Enterocolitis due to Clostridium difficile, not specified as recurrent; C77.2 Secondary and unspecified malignant neoplasm of intra-abdominal lymph nodes; E87.20 Acidosis, unspecified; E83.42 Hypomagnesemia; F32.A Depression, unspecified; E87.6 Hypokalemia; E03.9 Hypothyroidism, unspecified; E78.00 Pure hypercholesterolemia, unspecified; I10 Essential (primary) hypertension; D64.9 Anemia, unspecified; Z98.84 Bariatric surgery status; Z90.49 Acquired absence of other specified parts of digestive tract; Z79.890 Hormone replacement therapy; Z79.899 Other long term (current) drug therapy; Z88.8 Allergy status to other drugs, medicaments and biological substances; Z80.0 Family history of malignant neoplasm of digestive organs

== ENCOUNTER → 2022-06-13 | Outpatient (CLI) | payer OTHER ==
[~2022-06-13] MED LIST changes: +DICY1CAP8 PO; +FIDA200TA PO; +RISATAB3 PO
== END ==
LOC: M LABSMTC 10:40
PROVIDERS: ATTEND Anesthesiology
DX: Z01.818 Encounter for other preprocedural examination (principal); Z11.52 Encounter for screening for COVID-19

== ENCOUNTER → 2022-06-16 | Outpatient (CLI) | payer OTHER ==
[~2022-06-16] MED LIST changes: +ANUSHCSU PR; +ARGI500T PO; -FENO200C19 PO; +FENO200C24 PO; +FLUC100T3 PO; +GNP45TAB2 PO; +LIDOCAINE 1% MDV 20ML VIAL As Ordered ONE; +MAGN400C PO; +MIDAZOLAM INJ 2MG/2ML VIAL As Ordered ONE; +NS 1,000 ML IV SCH; +ONDA-84 PO; +ONDA8TAB8 PO; +PROC10TA5 PO; +VITA100T59 PO; +[UNRECOGNIZED DRUG - CODE] PO; +ceFAZolin 2 GM/D5W 50 ML IV BAG As Ordered ONE; +ceFAZolin SOD 2 GM in IV 1 EA IV ONE; +diphenhydrAMINE 50MG/ML VIAL As Ordered ONE; +fentaNYL 100 MCG/2 ML INJECTION As Ordered ONE
[2022-06-16 16:53] VITALS: BP 120/68
== END ==
LOC: M IRPRO 12:25
PROVIDERS: ATTEND Internal Medicine Medical Oncology
DX: C18.9 Malignant neoplasm of colon, unspecified (principal)
CPT/HCPCS: 36561; 99152; 99153; C1769; C1788; C1894; J0690; J1200; J1642; J1644; J2250; J3010

== ENCOUNTER 2022-07-05 15:15 | Inpatient (IN) | payer OTHER ==
[~2022-07-05] VITALS: Ht 154.9 cm; Wt 79.3 kg
[~2022-07-05 15:15] MED LIST changes: -ANUSHCSU PR
[2022-07-05 17:10] LABS: BASO % 0.2 % (0.0-1.0); EOS # 0.2 10^3/uL (0.0-0.5); EOS % 1.2 % (0.0-3.0); HEMATOCRIT 35.9 % (36.0-47.0); HEMOGLOBIN 11.5 g/dl (12.0-15.5); LYMPH # 1.6 10^3/uL (1.5-5.0); MEAN CORPUSCULAR HEMOGLOBIN 28.3 pg (27.0-33.0); MEAN CORPUSCULAR VOLUME 88.4 fl (80.0-96.0); MONO # 0.3 10^3/uL (0.0-0.8); NEUTROPHILS # 12.4 10^3/uL (1.5-8.5); NEUTROPHILS % 84.8 % (36.0-66.0); PLATELET COUNT, AUTOMATED 340 10^3/uL (150-450); RED BLOOD COUNT 4.06 10^6/uL (4.00-5.40); WHITE BLOOD COUNT 14.7 10^3/uL (4.0-10.0)
[2022-07-05 17:55] LABS: LIPASE 22 U/L (12-53)
[2022-07-05 17:57] LABS: BILIRUBIN,DIRECT 0.2 MG/DL (<0.4)
[2022-07-05] MEDS ORDERED: MORPHINE 4 MG/ML 1ML VIAL IV ONE (19:00)
[2022-07-05] MEDS ORDERED: NS 1,000 ML IV ONE ×2 (19:00→21:00)
[2022-07-05 19:39] LABS: ALBUMIN 3.5 G/DL (3.2-5.2); ALKALINE PHOSPHATASE 147 U/L (46-116); ALT/SGPT 49 U/L (7.0-40); AST/SGOT 59 U/L (<34); BILIRUBIN,TOTAL 0.4 MG/DL (0.3-1.2); BLOOD UREA NITROGEN 14 MG/DL (9-23); CALCIUM LEVEL 8.9 MG/DL (8.3-10.6); CARBON DIOXIDE LEVEL 23 MMOL/L (20-31); CHLORIDE LEVEL 98 MMOL/L (98-107); CREATININE FOR GFR 0.82 MG/DL (0.55-1.30); GLOMERULAR FILTRATION RATE > 60.0 (>45); GLUCOSE, FASTING 99 MG/DL (74-106); POTASSIUM SERUM 4.3 MMOL/L (3.5-5.1); SODIUM LEVEL 132 MMOL/L (136-145); TOTAL PROTEIN 6.4 G/DL (5.7-8.2)
[2022-07-05] MEDS ORDERED: ISOVUE-370 76% 100ML VIAL As Ordered ONE (19:43)
[2022-07-05] MEDS ORDERED: HYDROMORPHONE HCL 0.5 MG/ 0.5 ML SYRINGE IV ONE (21:00)
[2022-07-05] MEDS: SERTRALINE HCL 50 MG TAB PO SCH (21:00)
[2022-07-05 23:15] LABS: RSV AMPLIFICATION NEGATIVE (NEGATIVE)
[2022-07-06] MEDS ORDERED: DICY1CAP8 PO (00:21)
[2022-07-06] MEDS ORDERED: RISATAB3 PO (00:28)
[2022-07-06] MEDS ORDERED: AMLO1TAB25 PO (00:28)
[2022-07-06] MEDS ORDERED: HOME MED LIST COMPLETE! XX SCH (00:30)
[2022-07-06] MEDS: VANCOMYCIN ORAL SOL 250MG/5ML ORAL SYRINGE PO SCH ×5 (02:03→23:00)
[2022-07-06] MEDS: NS 1,000 ML IV SCH ×3 (02:04→15:50)
[2022-07-06] MEDS: MORPHINE 2 MG/ML 1ML VIAL IV PRN ×5 (02:04→23:00)
[2022-07-06] MEDS: LEVOTHYROXINE 75MCG TABLET (0.075MG) PO SCH (06:20)
[2022-07-06 08:14] LABS: INR 1.06
[2022-07-06 08:35] LABS: ALBUMIN 2.9 G/DL (3.2-5.2); ALKALINE PHOSPHATASE 148 U/L (46-116); ALT/SGPT 57 U/L (7.0-40); AST/SGOT 54 U/L (<34); BILIRUBIN,TOTAL 0.4 MG/DL (0.3-1.2); BLOOD UREA NITROGEN 7 MG/DL (9-23); CALCIUM LEVEL 7.9 MG/DL (8.3-10.6); CARBON DIOXIDE LEVEL 22 MMOL/L (20-31); CHLORIDE LEVEL 104 MMOL/L (98-107); CREATININE FOR GFR 0.61 MG/DL (0.55-1.30); GLOMERULAR FILTRATION RATE > 60.0 (>45); GLUCOSE, FASTING 84 MG/DL (74-106); POTASSIUM SERUM 3.6 MMOL/L (3.5-5.1); SODIUM LEVEL 136 MMOL/L (136-145); TOTAL PROTEIN 5.5 G/DL (5.7-8.2)
[2022-07-06] MEDS: METOPROLOL SUCC (TopROL XL) 100MG *XL* TAB PO SCH (09:00)
[2022-07-06] MEDS: LOSARTAN 50MG TABLET PO SCH (09:03)
[2022-07-06] MEDS: HEPARIN SOD (PORCINE) 5000UNITS/ML 1ML VIAL/SYRINGE SC SCH ×2 (09:15→20:14)
[2022-07-06] MEDS: buPROPion 100 MG TAB PO SCH ×2 (09:17→20:13)
[2022-07-06 15:45] VITALS: BP 148/80
[2022-07-06] MEDS: ACETAMINOPHEN TAB 650MG DOSE (2X325MG) PO PRN (15:51)
[2022-07-06] MEDS: ROSUVASTATIN 10 MG TAB (CRESTOR) PO SCH (20:13)
[2022-07-06] MEDS: SERTRALINE HCL 50 MG TAB PO SCH (20:13)
[2022-07-06] MEDS ORDERED: EZETIMIBE 10MG TABLET (ZETIA) PO SCH (21:00)
[2022-07-06 22:00] VITALS: BP 141/72
[2022-07-07] MEDS: NS 1,000 ML IV SCH (00:21)
[2022-07-07] MEDS ORDERED: traMADol 50 MG TAB PO PRN (00:30)
[2022-07-07] MEDS ORDERED: MORPHINE 2 MG/ML 1ML VIAL IV ONE (01:00)
[2022-07-07] MEDS: LEVOTHYROXINE 75MCG TABLET (0.075MG) PO SCH (05:26)
[2022-07-07] MEDS: MORPHINE 4 MG/ML 1ML VIAL IV PRN ×4 (05:26→19:59)
[2022-07-07] MEDS: VANCOMYCIN ORAL SOL 250MG/5ML ORAL SYRINGE PO SCH ×2 (05:26→13:03)
[2022-07-07 06:00] VITALS: BP 150/75
[2022-07-07 07:32] LABS: HEMATOCRIT 28.8 % (36.0-47.0); MEAN CORPUSCULAR HEMOGLOBIN 28.3 pg (27.0-33.0); MEAN CORPUSCULAR HGB CONC 32.3 g/dl (32.0-36.5); MEAN CORPUSCULAR VOLUME 87.5 fl (80.0-96.0); PLATELET COUNT, AUTOMATED 218 10^3/uL (150-450); RED BLOOD COUNT 3.29 10^6/uL (4.00-5.40); WHITE BLOOD COUNT 10.4 10^3/uL (4.0-10.0)
[2022-07-07 07:43] LABS: ALBUMIN 2.6 G/DL (3.2-5.2); ALKALINE PHOSPHATASE 151 U/L (46-116); ALT/SGPT 37 U/L (7.0-40); AST/SGOT 27 U/L (<34); BILIRUBIN,TOTAL 0.2 MG/DL (0.3-1.2); BLOOD UREA NITROGEN < 5 MG/DL (9-23); CALCIUM LEVEL 7.6 MG/DL (8.3-10.6); CARBON DIOXIDE LEVEL 21 MMOL/L (20-31); CHLORIDE LEVEL 106 MMOL/L (98-107); CREATININE FOR GFR 0.54 MG/DL (0.55-1.30); GLOMERULAR FILTRATION RATE > 60.0 (>45); GLUCOSE, FASTING 91 MG/DL (74-106); HEMOGLOBIN 9.3 g/dl (12.0-15.5); POTASSIUM SERUM 3.1 MMOL/L (3.5-5.1); SODIUM LEVEL 136 MMOL/L (136-145); TOTAL PROTEIN 5.1 G/DL (5.7-8.2)
[2022-07-07 08:00] VITALS: BP 151/76
[2022-07-07] MEDS ORDERED: POTASSIUM CHLORIDE 10MEQ SR TABLET PO ONE ×2 (09:00→11:00)
[2022-07-07] MEDS: LOSARTAN 50MG TABLET PO SCH (11:12)
[2022-07-07] MEDS: buPROPion 100 MG TAB PO SCH ×2 (11:12→20:00)
[2022-07-07] MEDS: HEPARIN SOD (PORCINE) 5000UNITS/ML 1ML VIAL/SYRINGE SC SCH ×2 (11:13→19:57)
[2022-07-07] MEDS: METOPROLOL SUCC (TopROL XL) 100MG *XL* TAB PO SCH (11:13)
[2022-07-07 13:00] VITALS: BP_SYST 146; BP_SYST 148; BP_DIAS 72; BP_DIAS 76
[2022-07-07 14:00] VITALS: BP 146/72
[2022-07-07] MEDS ORDERED: MORPHINE 2 MG/ML 1ML VIAL IV PRN (16:05)
[2022-07-07] MEDS ORDERED: DIAPER RELIEF PASTE (DESITIN) 60GM TOP PRN (16:50)
[2022-07-07] MEDS ORDERED: PREPARATION H OINTMENT (HEMORRHOID) PR PRN (16:50)
[2022-07-07] MEDS: SERTRALINE HCL 50 MG TAB PO SCH (20:00)
[2022-07-07] MEDS: ROSUVASTATIN 10 MG TAB (CRESTOR) PO SCH (20:00)
[2022-07-07] MEDS: FIDAXOMICIN 200 MG TAB (DIFICID) PO SCH (20:00)
[2022-07-07 22:00] VITALS: BP 155/82
[2022-07-08] MEDS: MORPHINE 4 MG/ML 1ML VIAL IV PRN ×3 (01:36→21:31)
[2022-07-08] MEDS: LEVOTHYROXINE 75MCG TABLET (0.075MG) PO SCH (05:40)
[2022-07-08 06:00] VITALS: BP 134/75
[2022-07-08 07:09] LABS: HEMOGLOBIN 9.2 g/dl (12.0-15.5); MEAN CORPUSCULAR HEMOGLOBIN 27.5 pg (27.0-33.0); MEAN CORPUSCULAR HGB CONC 31.7 g/dl (32.0-36.5); MEAN CORPUSCULAR VOLUME 86.8 fl (80.0-96.0); PLATELET COUNT, AUTOMATED 251 10^3/uL (150-450); RED BLOOD COUNT 3.34 10^6/uL (4.00-5.40); WHITE BLOOD COUNT 5.2 10^3/uL (4.0-10.0)
[2022-07-08 07:31] LABS: ALBUMIN 2.5 G/DL (3.2-5.2); ALKALINE PHOSPHATASE 170 U/L (46-116); ALT/SGPT 34 U/L (7.0-40); AST/SGOT 26 U/L (<34); BILIRUBIN,TOTAL 0.2 MG/DL (0.3-1.2); BLOOD UREA NITROGEN < 5 MG/DL (9-23); CALCIUM LEVEL 8.6 MG/DL (8.3-10.6); CARBON DIOXIDE LEVEL 23 MMOL/L (20-31); CHLORIDE LEVEL 108 MMOL/L (98-107); CREATININE FOR GFR 0.51 MG/DL (0.55-1.30); GLOMERULAR FILTRATION RATE > 60.0 (>45); GLUCOSE, FASTING 94 MG/DL (74-106); POTASSIUM SERUM 3.5 MMOL/L (3.5-5.1); SODIUM LEVEL 140 MMOL/L (136-145); TOTAL PROTEIN 4.9 G/DL (5.7-8.2)
[2022-07-08] MEDS: HEPARIN SOD (PORCINE) 5000UNITS/ML 1ML VIAL/SYRINGE SC SCH ×2 (09:03→21:32)
[2022-07-08] MEDS: METOPROLOL SUCC (TopROL XL) 100MG *XL* TAB PO SCH (09:04)
[2022-07-08] MEDS: FIDAXOMICIN 200 MG TAB (DIFICID) PO SCH ×2 (09:04→21:32)
[2022-07-08] MEDS: LOSARTAN 50MG TABLET PO SCH (09:04)
[2022-07-08] MEDS: NS 1,000 ML IV SCH ×2 (09:04→21:36)
[2022-07-08] MEDS: buPROPion 100 MG TAB PO SCH ×2 (09:04→21:36)
[2022-07-08] MEDS: ACETAMINOPHEN TAB 650MG DOSE (2X325MG) PO PRN ×2 (09:16→18:54)
[2022-07-08 14:00] VITALS: BP 135/75
[2022-07-08 20:25] VITALS: BP 145/79
[2022-07-08] MEDS: SERTRALINE HCL 50 MG TAB PO SCH (21:32)
[2022-07-08] MEDS: ROSUVASTATIN 10 MG TAB (CRESTOR) PO SCH (21:33)
[2022-07-09] MEDS: MORPHINE 4 MG/ML 1ML VIAL IV PRN ×2 (01:43→06:21)
[2022-07-09 06:00] VITALS: BP 135/68
[2022-07-09 06:13] LABS: HEMATOCRIT 28.3 % (36.0-47.0); HEMOGLOBIN 9.1 g/dl (12.0-15.5); MEAN CORPUSCULAR HEMOGLOBIN 27.7 pg (27.0-33.0); MEAN CORPUSCULAR HGB CONC 32.2 g/dl (32.0-36.5); MEAN CORPUSCULAR VOLUME 86.3 fl (80.0-96.0); PLATELET COUNT, AUTOMATED 295 10^3/uL (150-450); RED BLOOD COUNT 3.28 10^6/uL (4.00-5.40); WHITE BLOOD COUNT 5.3 10^3/uL (4.0-10.0)
[2022-07-09] MEDS: LEVOTHYROXINE 75MCG TABLET (0.075MG) PO SCH (06:20)
[2022-07-09 06:54] LABS: ALBUMIN 2.4 G/DL (3.2-5.2); ALKALINE PHOSPHATASE 163 U/L (46-116); ALT/SGPT 29 U/L (7.0-40); AST/SGOT 21 U/L (<34); BILIRUBIN,TOTAL 0.2 MG/DL (0.3-1.2); BLOOD UREA NITROGEN < 5 MG/DL (9-23); CALCIUM LEVEL 8.1 MG/DL (8.3-10.6); CARBON DIOXIDE LEVEL 23 MMOL/L (20-31); CHLORIDE LEVEL 108 MMOL/L (98-107); CREATININE FOR GFR 0.56 MG/DL (0.55-1.30); GLOMERULAR FILTRATION RATE > 60.0 (>45); GLUCOSE, FASTING 114 MG/DL (74-106); POTASSIUM SERUM 2.7 MMOL/L (3.5-5.1); SODIUM LEVEL 141 MMOL/L (136-145)
[2022-07-09] MEDS ORDERED: NORCO, ANEXSIA 5/325MG TABLET (HYDROcodone/ACETAMINOPHEN) PO PRN (07:55)
[2022-07-09 08:00] VITALS: BP 158/78
[2022-07-09] MEDS: LOSARTAN 50MG TABLET PO SCH (08:51)
[2022-07-09] MEDS: ACETAMINOPHEN TAB 650MG DOSE (2X325MG) PO PRN (08:51)
[2022-07-09] MEDS: FIDAXOMICIN 200 MG TAB (DIFICID) PO SCH ×2 (08:51→20:26)
[2022-07-09] MEDS: buPROPion 100 MG TAB PO SCH ×2 (08:52→20:26)
[2022-07-09] MEDS: METOPROLOL SUCC (TopROL XL) 100MG *XL* TAB PO SCH (08:52)
[2022-07-09] MEDS: HEPARIN SOD (PORCINE) 5000UNITS/ML 1ML VIAL/SYRINGE SC SCH ×2 (08:52→20:26)
[2022-07-09] MEDS: NORCO, ANEXSIA 5/325MG TABLET (HYDROcodone/ACETAMINOPHEN) PO PRN ×2 (11:17→18:36)
[2022-07-09] MEDS: NS 1,000 ML IV SCH (11:18)
[2022-07-09 14:00] VITALS: BP 137/76
[2022-07-09] MEDS ORDERED: LORazepam 0.5 MG TAB PO PRN (16:40)
[2022-07-09] MEDS ORDERED: POTASSIUM CHLORIDE 10MEQ SR TABLET PO ONE ×2 (17:00→19:00)
[2022-07-09] MEDS: KCL 40MEQ IN D5/0.45NS 1000ML 1,000 ML IV SCH (17:40)
[2022-07-09] MEDS: SERTRALINE HCL 50 MG TAB PO SCH (20:26)
[2022-07-09] MEDS: ROSUVASTATIN 10 MG TAB (CRESTOR) PO SCH (20:26)
[2022-07-09 20:54] VITALS: BP 133/76
[2022-07-09 23:14] LABS: BLOOD UREA NITROGEN < 5 MG/DL (9-23); CALCIUM LEVEL 8.1 MG/DL (8.3-10.6); CARBON DIOXIDE LEVEL 23 MMOL/L (20-31); CHLORIDE LEVEL 107 MMOL/L (98-107); CREATININE FOR GFR 0.52 MG/DL (0.55-1.30); GLOMERULAR FILTRATION RATE > 60.0 (>45); GLUCOSE, FASTING 97 MG/DL (74-106); POTASSIUM SERUM 3.6 MMOL/L (3.5-5.1); SODIUM LEVEL 139 MMOL/L (136-145)
[2022-07-10 05:43] VITALS: BP 139/82
[2022-07-10] MEDS: KCL 40MEQ IN D5/0.45NS 1000ML 1,000 ML IV SCH (05:59)
[2022-07-10] MEDS: LEVOTHYROXINE 75MCG TABLET (0.075MG) PO SCH (05:59)
[2022-07-10 06:22] LABS: HEMATOCRIT 31.6 % (36.0-47.0); HEMOGLOBIN 10.2 g/dl (12.0-15.5); MEAN CORPUSCULAR HEMOGLOBIN 27.7 pg (27.0-33.0); MEAN CORPUSCULAR HGB CONC 32.3 g/dl (32.0-36.5); MEAN CORPUSCULAR VOLUME 85.9 fl (80.0-96.0); PLATELET COUNT, AUTOMATED 340 10^3/uL (150-450); RED BLOOD COUNT 3.68 10^6/uL (4.00-5.40)
[2022-07-10 06:52] LABS: ALBUMIN 2.8 G/DL (3.2-5.2); ALKALINE PHOSPHATASE 168 U/L (46-116); ALT/SGPT 29 U/L (7.0-40); AST/SGOT 20 U/L (<34); BILIRUBIN,TOTAL 0.2 MG/DL (0.3-1.2); BLOOD UREA NITROGEN < 5 MG/DL (9-23); CALCIUM LEVEL 8.5 MG/DL (8.3-10.6); CARBON DIOXIDE LEVEL 24 MMOL/L (20-31); CHLORIDE LEVEL 109 MMOL/L (98-107); CREATININE FOR GFR 0.51 MG/DL (0.55-1.30); GLOMERULAR FILTRATION RATE > 60.0 (>45); GLUCOSE, FASTING 104 MG/DL (74-106); SODIUM LEVEL 142 MMOL/L (136-145); TOTAL PROTEIN 5.8 G/DL (5.7-8.2)
[2022-07-10] MEDS ORDERED: POTASSIUM CHLORIDE 10MEQ SR TABLET PO ONE (07:40)
[2022-07-10 09:22] LABS: MAGNESIUM LEVEL 1.5 MG/DL (1.8-2.4)
[2022-07-10 09:24] LABS: PHOSPHORUS LEVEL 4.2 MG/DL (2.4-5.1)
[2022-07-10] MEDS: LOSARTAN 50MG TABLET PO SCH (09:57)
[2022-07-10] MEDS: FIDAXOMICIN 200 MG TAB (DIFICID) PO SCH ×2 (09:58→20:03)
[2022-07-10] MEDS: HEPARIN SOD (PORCINE) 5000UNITS/ML 1ML VIAL/SYRINGE SC SCH ×2 (09:58→20:03)
[2022-07-10] MEDS: buPROPion 100 MG TAB PO SCH ×2 (09:58→20:03)
[2022-07-10] MEDS: METOPROLOL SUCC (TopROL XL) 100MG *XL* TAB PO SCH (09:58)
[2022-07-10] MEDS: ANUSOL HC 25MG SUPP PR SCH ×2 (10:14→20:03)
[2022-07-10 14:00] VITALS: BP 141/79
[2022-07-10] MEDS ORDERED: MAG SULF 1GM/100ML (MAG RUN) 1 GM in IV 1 EA IV ONE (16:00)
[2022-07-10] MEDS ORDERED: MAGNESIUM OXIDE 400MG TAB (MAG-OX) PO ONE (16:45)
[2022-07-10 20:00] VITALS: BP 149/81
[2022-07-10] MEDS: SERTRALINE HCL 50 MG TAB PO SCH (20:03)
[2022-07-10] MEDS: ROSUVASTATIN 10 MG TAB (CRESTOR) PO SCH (20:03)
[2022-07-11] MEDS: LEVOTHYROXINE 75MCG TABLET (0.075MG) PO SCH (05:34)
[2022-07-11 06:00] VITALS: BP 143/81
[2022-07-11 06:29] LABS: HEMATOCRIT 31.7 % (36.0-47.0); HEMOGLOBIN 10.1 g/dl (12.0-15.5); MEAN CORPUSCULAR HEMOGLOBIN 27.7 pg (27.0-33.0); MEAN CORPUSCULAR HGB CONC 31.9 g/dl (32.0-36.5); MEAN CORPUSCULAR VOLUME 86.8 fl (80.0-96.0); PLATELET COUNT, AUTOMATED 332 10^3/uL (150-450); RED BLOOD COUNT 3.65 10^6/uL (4.00-5.40); WHITE BLOOD COUNT 3.3 10^3/uL (4.0-10.0)
[2022-07-11 06:53] LABS: MAGNESIUM LEVEL 1.6 MG/DL (1.8-2.4)
[2022-07-11 06:56] LABS: ALBUMIN 2.7 G/DL (3.2-5.2); ALKALINE PHOSPHATASE 160 U/L (46-116); ALT/SGPT 28 U/L (7.0-40); AST/SGOT 31 U/L (<34); BILIRUBIN,TOTAL 0.2 MG/DL (0.3-1.2); BLOOD UREA NITROGEN < 5 MG/DL (9-23); CALCIUM LEVEL 8.6 MG/DL (8.3-10.6); CARBON DIOXIDE LEVEL 25 MMOL/L (20-31); CHLORIDE LEVEL 108 MMOL/L (98-107); CREATININE FOR GFR 0.64 MG/DL (0.55-1.30); GLOMERULAR FILTRATION RATE > 60.0 (>45); GLUCOSE, FASTING 107 MG/DL (74-106); POTASSIUM SERUM 3.8 MMOL/L (3.5-5.1); SODIUM LEVEL 143 MMOL/L (136-145); TOTAL PROTEIN 5.4 G/DL (5.7-8.2)
[2022-07-11] MEDS ORDERED: FIDA200TA PO (08:51)
[2022-07-11] MEDS ORDERED: ANUSHCSU PR (08:51)
[2022-07-11] MEDS: HEPARIN SOD (PORCINE) 5000UNITS/ML 1ML VIAL/SYRINGE SC SCH (09:00)
[2022-07-11] MEDS: ANUSOL HC 25MG SUPP PR SCH (09:00)
[2022-07-11] MEDS ORDERED: MAGNESIUM OXIDE 400MG TAB (MAG-OX) PO ONE (09:15)
[2022-07-11 09:55] VITALS: BP 138/70
[2022-07-11] MEDS: FIDAXOMICIN 200 MG TAB (DIFICID) PO SCH (09:55)
[2022-07-11] MEDS: LOSARTAN 50MG TABLET PO SCH (09:55)
[2022-07-11] MEDS: METOPROLOL SUCC (TopROL XL) 100MG *XL* TAB PO SCH (09:55)
[2022-07-11] MEDS: buPROPion 100 MG TAB PO SCH (09:56)
== END 2022-07-11 11:29 | disposition home or self-care (01) | DRG 372 ==
LOC: M ED 15:15 → M ED INP 07-06 00:35 → ENRESERV 07-06 14:11 → M MSPAV 07-06 15:44
PROVIDERS: ADMIT Family Medicine; ATTEND Internal Medicine
DX: A04.71 Enterocolitis due to Clostridium difficile, recurrent (principal); L12.0 Bullous pemphigoid; C19 Malignant neoplasm of rectosigmoid junction; A08.11 Acute gastroenteropathy due to Norwalk agent; I10 Essential (primary) hypertension; F32.A Depression, unspecified; E03.9 Hypothyroidism, unspecified; E78.00 Pure hypercholesterolemia, unspecified; E83.42 Hypomagnesemia; R25.2 Cramp and spasm; E06.3 Autoimmune thyroiditis; E87.6 Hypokalemia; Z90.49 Acquired absence of other specified parts of digestive tract; Z98.41 Cataract extraction status, right eye; Z98.42 Cataract extraction status, left eye; Z79.899 Other long term (current) drug therapy; Z88.8 Allergy status to other drugs, medicaments and biological substances; Z98.0 Intestinal bypass and anastomosis status; Z79.890 Hormone replacement therapy

== ENCOUNTER → 2022-07-05 | Outpatient (POV) | payer OTHER ==
[~2022-07-05] VITALS: Ht 154.9 cm; Wt 75.9 kg
[~2022-07-05] MED LIST changes: -ARGI500T PO; -FLUC100T3 PO; -GNP45TAB2 PO; -LIDOCAINE 1% MDV 20ML VIAL As Ordered ONE; -MAGN400C PO; -MIDAZOLAM INJ 2MG/2ML VIAL As Ordered ONE; -NS 1,000 ML IV SCH; -VITA100T59 PO; -[UNRECOGNIZED DRUG - CODE] PO; -ceFAZolin 2 GM/D5W 50 ML IV BAG As Ordered ONE; -ceFAZolin SOD 2 GM in IV 1 EA IV ONE; -diphenhydrAMINE 50MG/ML VIAL As Ordered ONE; -fentaNYL 100 MCG/2 ML INJECTION As Ordered ONE
[2022-07-05 14:45] VITALS: BP 125/70
== END ==
LOC: M IRPOV 14:38
PROVIDERS: ATTEND Radiology Diagnostic Radiology
DX: Z45.2 Encounter for adjustment and management of vascular access device (principal)

== ENCOUNTER → 2022-07-14 | Outpatient (CLI) | payer OTHER ==
[~2022-07-14] VITALS: Ht 160 cm; Wt 79.3 kg
[~2022-07-14] MED LIST changes: +ANUSHCSU PR; +BEZLOTOXUMAB 800 MG in NS 100 ML IV ONE
[2022-07-14 16:29] VITALS: BP 145/73
[2022-07-14 17:40] VITALS: BP 158/83
== END ==
LOC: M INFU 16:08
PROVIDERS: ATTEND Internal Medicine Infectious Disease
DX: A04.71 Enterocolitis due to Clostridium difficile, recurrent (principal); Z88.8 Allergy status to other drugs, medicaments and biological substances
CPT/HCPCS: 96365; J0565

== ENCOUNTER → 2022-10-14 | Outpatient (CLI) | payer OTHER ==
[~2022-10-14] MED LIST changes: +ARGI500T PO; -BEZLOTOXUMAB 800 MG in NS 100 ML IV ONE; +FLUC100T3 PO; +GABA-1171 PO; +GNP45TAB2 PO; +ISOVUE-370 76% 100ML VIAL As Ordered ONE; +LEVO1TAB39 PO; +LOPE-39 PO; +MAGICMW SSP; +MAGN400C PO; +OMEP1CAP73 PO; +POTA-151 PO; +PROT20TA11 PO; +VITA100T59 PO; +[UNRECOGNIZED DRUG - CODE] PO
== END ==
LOC: M RAD 09:47
PROVIDERS: ATTEND Family Medicine
DX: R10.13 Epigastric pain (principal); Z85.038 Personal history of other malignant neoplasm of large intestine
CPT/HCPCS: 74177; Q9967

== ENCOUNTER → 2022-10-25 | Outpatient (CLI) | payer OTHER ==
[~2022-10-25] VITALS: Ht 154.9 cm; Wt 75.9 kg
[~2022-10-25] MED LIST changes: +ACET-1349 PO; +HYDR-3713 PO; -ISOVUE-370 76% 100ML VIAL As Ordered ONE
[2022-10-25 08:00] VITALS: BP 111/72
== END ==
LOC: M PAL 07:55
PROVIDERS: ATTEND Nurse Practitioner Adult Health
DX: C19 Malignant neoplasm of rectosigmoid junction (principal); G89.3 Neoplasm related pain (acute) (chronic); M54.2 Cervicalgia; M25.559 Pain in unspecified hip; M79.609 Pain in unspecified limb; R19.7 Diarrhea, unspecified; R63.0 Anorexia; Z98.84 Bariatric surgery status; Z51.5 Encounter for palliative care; R10.13 Epigastric pain; G62.9 Polyneuropathy, unspecified; Z80.0 Family history of malignant neoplasm of digestive organs; Z88.8 Allergy status to other drugs, medicaments and biological substances; Z79.891 Long term (current) use of opiate analgesic; Z79.899 Other long term (current) drug therapy; Z79.890 Hormone replacement therapy

== ENCOUNTER 2022-11-16 12:53 | Inpatient (IN) | payer OTHER ==
[~2022-11-16] VITALS: Ht 154.9 cm; Wt 73.2 kg
[2022-11-16 15:26] LABS: BASO % 0.4 % (0.0-1.0); EOS # 0.1 10^3/uL (0.0-0.5); EOS % 1.3 % (0.0-3.0); HEMATOCRIT 34.7 % (36.0-47.0); HEMOGLOBIN 11.7 g/dl (12.0-15.5); LYMPH # 1.1 10^3/uL (1.5-5.0); LYMPH % 21.2 % (24.0-44.0); MEAN CORPUSCULAR HEMOGLOBIN 33.5 pg (27.0-33.0); MEAN CORPUSCULAR HGB CONC 33.7 g/dl (32.0-36.5); MEAN CORPUSCULAR VOLUME 99.4 fl (80.0-96.0); MONO # 0.4 10^3/uL (0.0-0.8); MONO % 6.6 % (2.0-8.0); NEUTROPHILS # 3.7 10^3/uL (1.5-8.5); NEUTROPHILS % 69.9 % (36.0-66.0); PLATELET COUNT, AUTOMATED 236 10^3/uL (150-450); RED BLOOD COUNT 3.49 10^6/uL (4.00-5.40); WHITE BLOOD COUNT 5.3 10^3/uL (4.0-10.0)
[2022-11-16 15:36] LABS: INR 1.11; PROTHROMBIN TIME 14.5 SECONDS (12.5-14.5)
[2022-11-16 15:44] LABS: LIPASE 31 U/L (12-53)
[2022-11-16 15:46] LABS: ALBUMIN 2.9 G/DL (3.2-5.2); ALKALINE PHOSPHATASE 190 U/L (46-116); ALT/SGPT 37 U/L (7.0-40); AST/SGOT 41 U/L (<34); BILIRUBIN,DIRECT 0.1 MG/DL (<0.4); BILIRUBIN,TOTAL 0.4 MG/DL (0.3-1.2); BLOOD UREA NITROGEN 15 MG/DL (9-23); CALCIUM LEVEL 8.5 MG/DL (8.3-10.6); CARBON DIOXIDE LEVEL 26 MMOL/L (20-31); CHLORIDE LEVEL 106 MMOL/L (98-107); CK-MB VALUE MASS < 1.0 NG/ML (<3.6); CREATININE FOR GFR 0.71 MG/DL (0.55-1.30); GLOMERULAR FILTRATION RATE > 60.0 (>45); GLUCOSE, FASTING 85 MG/DL (74-106); POTASSIUM SERUM 4.6 MMOL/L (3.5-5.1); SODIUM LEVEL 135 MMOL/L (136-145); TOTAL PROTEIN 5.8 G/DL (5.7-8.2)
[2022-11-16 15:49] LABS: THYROID STIMULATING HORMONE 3.215 uIU/ML (0.55-4.78)
[2022-11-16 15:51] LABS: CPK CREATINE PHOSPHOKINASE 29 U/L (34-145); MB/CK RELATIVE INDEX 3.44 (< OR =4)
[2022-11-16] MEDS ORDERED: ISOVUE-370 76% 100ML VIAL As Ordered ONE (16:33)
[2022-11-16] MEDS ORDERED: NS 1,000 ML IV SCH (16:50)
[2022-11-16] MEDS ORDERED: PIPERACILLIN/TAZOBACTAM SOD 4.5 GM in D5W MINI-BAG PLUS 50 ML IV ONE (18:35)
[2022-11-16] MEDS ORDERED: FUROSEMIDE 40MG/4ML VIAL IV ONE (18:35)
[2022-11-16] MEDS ORDERED: ACETAMINOPHEN TAB 650MG DOSE (2X325MG) PO PRN (19:30)
[2022-11-16 22:13] VITALS: BP 131/69
[2022-11-16] MEDS: LACTOBACILLUS ACIDOPHILUS CAP (BACID) PO SCH (22:20)
[2022-11-16] MEDS: guaiFENesin ER 600 MG TAB PO SCH (22:21)
[2022-11-16] MEDS ORDERED: LOSA100T46 PO (22:34)
[2022-11-16] MEDS ORDERED: C 50TAB PO (22:34)
[2022-11-16] MEDS ORDERED: HOME MED LIST COMPLETE! XX SCH (22:35)
[2022-11-16] MEDS ORDERED: PROCHLORPERAZINE 5MG TAB PO PRN (23:10)
[2022-11-16] MEDS: IPRATROPIUM 0.5MG/ALBUTEROL 2.5MG INH SOL UD 3ML (DUONEB) NEB SCH (23:20)
[2022-11-16] MEDS ORDERED: PILL CUTTER 1 EACH XX PRN (23:20)
[2022-11-16] MEDS ORDERED: MOM 30ML SUSPENSION UDC PO PRN (23:55)
[2022-11-16] MEDS: buPROPion 100 MG TAB PO SCH (23:57)
[2022-11-16] MEDS: ROSUVASTATIN 10 MG TAB (CRESTOR) PO SCH (23:58)
[2022-11-16] MEDS: EZETIMIBE 10MG TABLET (ZETIA) PO SCH (23:58)
[2022-11-16] MEDS: GABAPENTIN 100 MG CAP PO SCH (23:58)
[2022-11-16] MEDS: SERTRALINE HCL 50 MG TAB PO SCH (23:58)
[2022-11-17] MEDS: NORCO, ANEXSIA 5/325MG TABLET (HYDROcodone/ACETAMINOPHEN) PO PRN ×2 (00:01→19:52)
[2022-11-17] MEDS: tiZANidine 4 MG TAB PO PRN ×2 (00:01→19:52)
[2022-11-17] MEDS: PIPERACILLIN/TAZOBACTAM SOD 3.375 GM in D5W MINI-BAG PLUS 50 ML IV SCH ×4 (01:00→19:31)
[2022-11-17 03:20] LABS: APPEARANCE, URINE CLEAR (CLEAR); BACTERIA, URINE AUTO NEGATIVE (NEGATIVE); BILIRUBIN, URINE AUTO NEGATIVE (NEGATIVE); BLOOD, URINE BLOOD NEGATIVE (NEGATIVE); COLOR, URINE STRAW (YELLOW); GLUCOSE, URINE (UA) AUTO NEGATIVE (NEGATIVE); KETONE, URINE AUTO NEGATIVE (NEGATIVE); LEUKOCYTE ESTERASE, URINE AUTO NEGATIVE (NEGATIVE); NITRITE, URINE AUTO NEGATIVE (NEGATIVE); PROTEIN, URINE AUTO NEGATIVE (NEGATIVE); RBC, URINE AUTO 0 /HPF (0-3); SPECIFIC GRAVITY URINE AUTO 1.015 (1.002-1.035); SQUAMOUS EPITHELIAL CELL UR AU 1 /HPF (0-6); UROBILINOGEN, URINE AUTO 0.2 mg/dL (0.0-2.0); WBC, URINE AUTO 1 /HPF (0-3)
[2022-11-17] MEDS: LEVOTHYROXINE 75MCG TABLET (0.075MG) PO SCH (05:21)
[2022-11-17 06:00] VITALS: BP 105/56
[2022-11-17 06:12] LABS: HEMATOCRIT 33.4 % (36.0-47.0); HEMOGLOBIN 11.6 g/dl (12.0-15.5); MEAN CORPUSCULAR HEMOGLOBIN 33.6 pg (27.0-33.0); MEAN CORPUSCULAR HGB CONC 34.7 g/dl (32.0-36.5); MEAN CORPUSCULAR VOLUME 96.8 fl (80.0-96.0); PLATELET COUNT, AUTOMATED 242 10^3/uL (150-450); RED BLOOD COUNT 3.45 10^6/uL (4.00-5.40); WHITE BLOOD COUNT 5.3 10^3/uL (4.0-10.0)
[2022-11-17 06:51] LABS: ALKALINE PHOSPHATASE 214 U/L (46-116); ALT/SGPT 42 U/L (7.0-40); AST/SGOT 43 U/L (<34); BILIRUBIN,TOTAL 0.6 MG/DL (0.3-1.2); BLOOD UREA NITROGEN 11 MG/DL (9-23); CALCIUM LEVEL 8.9 MG/DL (8.3-10.6); CARBON DIOXIDE LEVEL 25 MMOL/L (20-31); CHLORIDE LEVEL 102 MMOL/L (98-107); CREATININE FOR GFR 0.72 MG/DL (0.55-1.30); GLOMERULAR FILTRATION RATE > 60.0 (>45); GLUCOSE, FASTING 117 MG/DL (74-106); MAGNESIUM LEVEL 1.8 MG/DL (1.8-2.4); POTASSIUM SERUM 3.6 MMOL/L (3.5-5.1); SODIUM LEVEL 138 MMOL/L (136-145); TOTAL PROTEIN 5.9 G/DL (5.7-8.2)
[2022-11-17] MEDS: IPRATROPIUM 0.5MG/ALBUTEROL 2.5MG INH SOL UD 3ML (DUONEB) NEB SCH ×3 (08:08→23:24)
[2022-11-17] MEDS ORDERED: LOSARTAN 50MG TABLET PO SCH (09:00)
[2022-11-17] MEDS: METOPROLOL SUCC (TopROL XL) 100MG *XL* TAB PO SCH (09:00)
[2022-11-17] MEDS: buPROPion 100 MG TAB PO SCH ×2 (09:13→19:53)
[2022-11-17] MEDS: ASCORBIC ACID 500 MG TAB PO SCH (09:13)
[2022-11-17] MEDS: OMEPRAZOLE 20MG CAP PO SCH (09:14)
[2022-11-17] MEDS: GABAPENTIN 100 MG CAP PO SCH ×3 (09:14→19:53)
[2022-11-17] MEDS: guaiFENesin ER 600 MG TAB PO SCH ×2 (09:14→19:53)
[2022-11-17] MEDS: LACTOBACILLUS ACIDOPHILUS CAP (BACID) PO SCH ×4 (09:14→19:52)
[2022-11-17] MEDS: ENOXAPARIN 40MG/0.4ML SYRINGE (J1650 PER 10MG) SC SCH (09:15)
[2022-11-17 14:00] VITALS: BP 126/74
[2022-11-17] MEDS: ROSUVASTATIN 10 MG TAB (CRESTOR) PO SCH (19:53)
[2022-11-17] MEDS: EZETIMIBE 10MG TABLET (ZETIA) PO SCH (19:53)
[2022-11-17] MEDS: SERTRALINE HCL 50 MG TAB PO SCH (19:53)
[2022-11-17 20:50] VITALS: BP 110/64
[2022-11-18] MEDS: PIPERACILLIN/TAZOBACTAM SOD 3.375 GM in D5W MINI-BAG PLUS 50 ML IV SCH ×2 (01:06→08:59)
[2022-11-18] MEDS: LEVOTHYROXINE 75MCG TABLET (0.075MG) PO SCH (05:24)
[2022-11-18 05:30] VITALS: BP 132/77
[2022-11-18] MEDS: IPRATROPIUM 0.5MG/ALBUTEROL 2.5MG INH SOL UD 3ML (DUONEB) NEB SCH (07:28)
[2022-11-18] MEDS: OMEPRAZOLE 20MG CAP PO SCH (08:50)
[2022-11-18] MEDS: buPROPion 100 MG TAB PO SCH (08:50)
[2022-11-18] MEDS: ASCORBIC ACID 500 MG TAB PO SCH (08:50)
[2022-11-18] MEDS: guaiFENesin ER 600 MG TAB PO SCH (08:50)
[2022-11-18] MEDS: LACTOBACILLUS ACIDOPHILUS CAP (BACID) PO SCH (08:50)
[2022-11-18] MEDS: GABAPENTIN 100 MG CAP PO SCH (08:50)
[2022-11-18 08:51] VITALS: BP 132/77
[2022-11-18] MEDS: METOPROLOL SUCC (TopROL XL) 100MG *XL* TAB PO SCH (08:51)
[2022-11-18] MEDS: ENOXAPARIN 40MG/0.4ML SYRINGE (J1650 PER 10MG) SC SCH (08:51)
[2022-11-18] MEDS ORDERED: FUROSEMIDE 40MG/4ML VIAL IV ONE (09:00)
[2022-11-18] MEDS ORDERED: EQL1CAP9 PO (10:26)
[2022-11-18] MEDS ORDERED: AMOX875T2 PO (10:26)
[2022-11-18 11:29] VITALS: BP 133/83
[2022-11-18 16:09] LABS: MYCOPLASMA PNEUMONIAE IgG <100 U/mL (0-99); MYCOPLASMA PNEUMONIAE IgM <770 U/mL (0-769)
[2022-11-21 16:07] LABS: BODY FLUID CULTURE Not Indicated (.); LEGIONELLA ANTIGEN URINE Negative (Negative); ORGANISM ID Not indicated. (.); SPECIMEN SOURCE Urine (.); URINE STREP PNEUMONIAE ANTIGEN Negative (Negative)
[2022-11-23] MEDS ORDERED: FLUC10TA PO (09:27)
== END 2022-11-18 11:51 | disposition home or self-care (01) | DRG 189 ==
LOC: M ED 12:53 → M ED INP 19:26 → M MSPAV 22:13
PROVIDERS: ADMIT Family Medicine; ATTEND Internal Medicine Nephrology
DX: J81.1 Chronic pulmonary edema (principal); J18.9 Pneumonia, unspecified organism; C18.9 Malignant neoplasm of colon, unspecified; K52.1 Toxic gastroenteritis and colitis; D84.821 Immunodeficiency due to drugs; R06.02 Shortness of breath; E87.70 Fluid overload, unspecified; I10 Essential (primary) hypertension; E78.5 Hyperlipidemia, unspecified; T45.1X5A Adverse effect of antineoplastic and immunosuppressive drugs, initial encounter; G62.0 Drug-induced polyneuropathy; E03.9 Hypothyroidism, unspecified; R74.01 Elevation of levels of liver transaminase levels; Z98.84 Bariatric surgery status; Z98.41 Cataract extraction status, right eye; Z98.42 Cataract extraction status, left eye; Z90.49 Acquired absence of other specified parts of digestive tract; Z79.890 Hormone replacement therapy; Z79.899 Other long term (current) drug therapy; Z88.8 Allergy status to other drugs, medicaments and biological substances; Z79.69 Long term (current) use of other immunomodulators and immunosuppressants

== ENCOUNTER → 2022-11-24 | Outpatient (CLI) | payer OTHER ==
[~2022-11-24] VITALS: Ht 154.9 cm; Wt 72.6 kg
[~2022-11-24] MED LIST changes: +AMOX875T2 PO; +C 50TAB PO; +EQL1CAP9 PO; +LOPE-26 PO; +LOSA100T46 PO; +OMEP-173 PO
[2022-11-24 09:51] VITALS: BP 130/78
== END ==
LOC: M PAL 09:34
PROVIDERS: ATTEND Nurse Practitioner Adult Health
DX: C18.7 Malignant neoplasm of sigmoid colon (principal); Z51.5 Encounter for palliative care; G89.29 Other chronic pain; M54.2 Cervicalgia; M25.559 Pain in unspecified hip; M79.606 Pain in leg, unspecified; G89.3 Neoplasm related pain (acute) (chronic); R10.13 Epigastric pain; G62.0 Drug-induced polyneuropathy; R63.0 Anorexia; R63.4 Abnormal weight loss; R19.7 Diarrhea, unspecified; Z79.891 Long term (current) use of opiate analgesic; Z79.1 Long term (current) use of non-steroidal anti-inflammatories (NSAID); Z79.890 Hormone replacement therapy; Z79.899 Other long term (current) drug therapy; Z86.19 Personal history of other infectious and parasitic diseases; Z80.3 Family history of malignant neoplasm of breast; Z80.0 Family history of malignant neoplasm of digestive organs; Z88.8 Allergy status to other drugs, medicaments and biological substances; Z90.49 Acquired absence of other specified parts of digestive tract; Z98.84 Bariatric surgery status

== ENCOUNTER → 2022-12-07 | Outpatient (CLI) | payer OTHER ==
[~2022-12-07] MED LIST changes: +ACET325T43 PO; +ALPR0.25 PO; -K-TA10TA2 PO; +LASI20TA3 PO; +LEVO1TAB40 PO; +POTA-165 PO; +PRED10TA2 PO; -ROSU20TA5 PO; +ROSU20TA61 PO; +VANC125C3 PO
== END ==
LOC: M RAD 13:00
PROVIDERS: ATTEND Family Medicine
DX: R06.02 Shortness of breath (principal)

== ENCOUNTER → 2022-12-07 | Outpatient (REF) | payer OTHER ==
[~2022-12-07] MED LIST changes: -ACET325T43 PO; +K-TA10TA2 PO; -LEVO1TAB40 PO; -POTA-165 PO; -PRED10TA2 PO; +ROSU20TA5 PO; -ROSU20TA61 PO
[2022-12-07 13:29] LABS: ALBUMIN 2.9 G/DL (3.2-5.2); BILIRUBIN,DIRECT 0.2 MG/DL (<0.4); BILIRUBIN,TOTAL 0.5 MG/DL (0.3-1.2); TOTAL PROTEIN 5.8 G/DL (5.7-8.2)
== END ==
LOC: M LAB REF 12:16
PROVIDERS: ATTEND Family Medicine
DX: E78.2 Mixed hyperlipidemia (principal); R06.02 Shortness of breath

== ENCOUNTER → 2022-12-08 | Outpatient (CLI) | payer OTHER ==
[~2022-12-08] MED LIST changes: +ACET325T43 PO; -K-TA10TA2 PO; +LEVO1TAB40 PO; +POTA-165 PO; +PRED10TA2 PO; -ROSU20TA5 PO; +ROSU20TA61 PO
[2022-12-08 12:40] LABS: ALBUMIN 2.9 G/DL (3.2-5.2); BILIRUBIN,DIRECT 0.1 MG/DL (<0.4); BILIRUBIN,TOTAL 0.4 MG/DL (0.3-1.2); CHOLESTEROL RISK RATIO 3.55 (<5); HDL CHOLESTEROL 43.3 MG/DL (>40); LDL CHOLESTEROL 52.5 MG/DL (<100); NON-HDL-C 110.7 MG/DL; TOTAL PROTEIN 5.9 G/DL (5.7-8.2)
== END ==
LOC: M WUC 09:28
PROVIDERS: ATTEND Family Medicine
DX: E78.2 Mixed hyperlipidemia (principal)

== ENCOUNTER 2022-12-12 11:42 | Inpatient (IN) | payer OTHER ==
[~2022-12-12] VITALS: Ht 154.9 cm; Wt 72.5 kg
[~2022-12-12 11:42] MED LIST changes: -ACET325T43 PO; -LEVO1TAB40 PO; -PRED10TA2 PO
[2022-12-12 12:39] LABS: ABG pH (ARTERIAL) 7.416 UNITS (7.350-7.450)
[2022-12-12 12:40] LABS: ABG BASE EXCESS -2.4 (-2.0-2.0); ABG HCO3 21.5 MMOL/L (22.0-26.0); ABG O2 SATURATION 97.3 % (95.0-99.0); ABG PARTIAL PRESSURE CO2 34.3 mmHg (35.0-45.0); ABG PARTIAL PRESSURE O2 104.8 mmHg (75.0-100.0); ABG STANDARD HCO3 22.5 MMOL/L. (22.0-26.0); ABG TOTAL CO2 22.6 MMOL/L (23.0-31.0)
[2022-12-12 12:51] LABS: BASO % 0.2 % (0.0-1.0); EOS # 0.1 10^3/uL (0.0-0.5); EOS % 0.3 % (0.0-3.0); HEMATOCRIT 34.6 % (36.0-47.0); HEMOGLOBIN 11.6 g/dl (12.0-15.5); LYMPH # 1.5 10^3/uL (1.5-5.0); LYMPH % 8.1 % (24.0-44.0); MEAN CORPUSCULAR HGB CONC 33.5 g/dl (32.0-36.5); MEAN CORPUSCULAR VOLUME 101.5 fl (80.0-96.0); MONO # 0.5 10^3/uL (0.0-0.8); MONO % 2.7 % (2.0-8.0); NEUTROPHILS % 87.9 % (36.0-66.0); PLATELET COUNT, AUTOMATED 230 10^3/uL (150-450); RED BLOOD COUNT 3.41 10^6/uL (4.00-5.40); WHITE BLOOD COUNT 18.2 10^3/uL (4.0-10.0)
[2022-12-12 13:07] LABS: ALBUMIN 2.7 G/DL (3.2-5.2); ALKALINE PHOSPHATASE 154 U/L (46-116); ALT/SGPT 36 U/L (7.0-40); AST/SGOT 48 U/L (<34); BILIRUBIN,DIRECT 0.1 MG/DL (<0.4); BILIRUBIN,TOTAL 0.4 MG/DL (0.3-1.2); BLOOD UREA NITROGEN 16 MG/DL (9-23); CALCIUM LEVEL 8.1 MG/DL (8.3-10.6); CARBON DIOXIDE LEVEL 22 MMOL/L (20-31); CHLORIDE LEVEL 107 MMOL/L (98-107); CK-MB VALUE MASS < 1.0 NG/ML (<3.6); CREATININE FOR GFR 0.58 MG/DL (0.55-1.30); GLOMERULAR FILTRATION RATE > 60.0 (>45); GLUCOSE, FASTING 119 MG/DL (74-106); POTASSIUM SERUM 3.6 MMOL/L (3.5-5.1); SODIUM LEVEL 139 MMOL/L (136-145); TOTAL PROTEIN 5.6 G/DL (5.7-8.2)
[2022-12-12 13:11] LABS: THYROXINE (T4) 10.3 UG/DL (4.5-10.9)
[2022-12-12 13:12] LABS: THYROID STIMULATING HORMONE 3.267 uIU/ML (0.55-4.78)
[2022-12-12 13:17] LABS: CPK CREATINE PHOSPHOKINASE 28 U/L (34-145); MB/CK RELATIVE INDEX 3.57 (< OR =4)
[2022-12-12] MEDS ORDERED: PIPERACILLIN/TAZOBACTAM SOD 3.375 GM in D5W MINI-BAG PLUS 50 ML IV ONE (14:00)
[2022-12-12] MEDS ORDERED: ISOVUE-370 76% 100ML VIAL As Ordered ONE (14:08)
[2022-12-12] MEDS ORDERED: MED REC IN PROGRESS XX SCH (15:40)
[2022-12-12] MEDS ORDERED: MOM 30ML SUSPENSION UDC PO PRN (16:30)
[2022-12-12] MEDS ORDERED: ACETAMINOPHEN TAB 650MG DOSE (2X325MG) PO PRN (16:30)
[2022-12-12] MEDS ORDERED: ONDANSETRON 4MG ORAL DISINTEGRATING TAB PO PRN (16:55)
[2022-12-12] MEDS ORDERED: ALPRAZolam 0.25 MG TAB PO PRN (16:55)
[2022-12-12] MEDS ORDERED: PROCHLORPERAZINE 5MG TAB PO PRN (16:55)
[2022-12-12] MEDS ORDERED: NORCO, ANEXSIA 5/325MG TABLET (HYDROcodone/ACETAMINOPHEN) PO PRN (16:55)
[2022-12-12] MEDS ORDERED: tiZANidine 4 MG TAB PO PRN (16:55)
[2022-12-12] MEDS ORDERED: ACET325T43 PO (17:10)
[2022-12-12] MEDS ORDERED: HOME MED LIST COMPLETE! XX SCH (17:25)
[2022-12-12] MEDS: LR 2,000 ML IV SCH (17:46)
[2022-12-12] MEDS ORDERED: RIVAROXABAN 10MG TAB (XARELTO) PO SCH (18:00)
[2022-12-12] MEDS ORDERED: methylPREDNISolone 40MG 1ML VIAL IV SCH (18:00)
[2022-12-12 18:10] VITALS: BP 160/78; TEMP 98; O2SAT 90
[2022-12-12] MEDS: methylPREDNISolone 125MG 2ML VIAL IV SCH (18:19)
[2022-12-12] MEDS: LACTOBACILLUS ACIDOPHILUS CAP (BACID) PO SCH ×2 (18:19→21:13)
[2022-12-12] MEDS: ALBUTEROL SULFATE 2.5MG/0.5ML INH NEB SOLN INH SCH (19:00)
[2022-12-12 19:48] LABS: INR 1.15; PROTHROMBIN TIME 14.9 SECONDS (12.5-14.5)
[2022-12-12 20:00] VITALS: BP 139/65; TEMP 97.6; O2SAT 91
[2022-12-12] MEDS ORDERED: ROSUVASTATIN 10 MG TAB (CRESTOR) PO SCH (21:00)
[2022-12-12] MEDS ORDERED: EZETIMIBE 10MG TABLET (ZETIA) PO SCH (21:00)
[2022-12-12] MEDS: DOCUSATE SODIUM 100MG CAPSULE PO SCH ×2 (21:00→21:13)
[2022-12-12] MEDS ORDERED: SERTRALINE HCL 50 MG TAB PO SCH (21:00)
[2022-12-12] MEDS: PIPERACILLIN/TAZOBACTAM SOD 4.5 GM in D5W MINI-BAG PLUS 50 ML IV SCH (21:12)
[2022-12-12] MEDS: GABAPENTIN 100 MG CAP PO SCH (21:13)
[2022-12-13] VITALS (8 sets, daily range): BP systolic 125–135; BP diastolic 60–73; TEMP 96.7–98.2; O2SAT 81–95
[2022-12-13] MEDS: ALBUTEROL SULFATE 2.5MG/0.5ML INH NEB SOLN INH SCH ×3 (00:46→13:28)
[2022-12-13] MEDS ORDERED: diphenhydrAMINE 50MG/ML VIAL IM ONE (02:05)
[2022-12-13] MEDS ORDERED: diphenhydrAMINE 25MG CAP PO ONE (02:55)
[2022-12-13] MEDS: methylPREDNISolone 125MG 2ML VIAL IV SCH ×2 (03:18→10:37)
[2022-12-13] MEDS: PIPERACILLIN/TAZOBACTAM SOD 4.5 GM in D5W MINI-BAG PLUS 50 ML IV SCH ×3 (03:19→14:00)
[2022-12-13] MEDS ORDERED: LEVOTHYROXINE 75MCG TABLET (0.075MG) PO SCH (06:00)
[2022-12-13 06:30] LABS: BASO % 0.1 % (0.0-1.0); HEMATOCRIT 32.4 % (36.0-47.0); LYMPH # 0.5 10^3/uL (1.5-5.0); LYMPH % 5.3 % (24.0-44.0); MEAN CORPUSCULAR HEMOGLOBIN 34.5 pg (27.0-33.0); MEAN CORPUSCULAR VOLUME 101.6 fl (80.0-96.0); MONO # 0.1 10^3/uL (0.0-0.8); MONO % 0.9 % (2.0-8.0); NEUTROPHILS # 9.4 10^3/uL (1.5-8.5); NEUTROPHILS % 92.9 % (36.0-66.0); PLATELET COUNT, AUTOMATED 218 10^3/uL (150-450); RED BLOOD COUNT 3.19 10^6/uL (4.00-5.40); WHITE BLOOD COUNT 10.2 10^3/uL (4.0-10.0)
[2022-12-13 07:02] LABS: BLOOD UREA NITROGEN 13 MG/DL (9-23); CALCIUM LEVEL 8.4 MG/DL (8.3-10.6); CARBON DIOXIDE LEVEL 24 MMOL/L (20-31); CHLORIDE LEVEL 107 MMOL/L (98-107); GLOMERULAR FILTRATION RATE > 60.0 (>45); GLUCOSE, FASTING 160 MG/DL (74-106); POTASSIUM SERUM 3.7 MMOL/L (3.5-5.1); SODIUM LEVEL 138 MMOL/L (136-145)
[2022-12-13] MEDS ORDERED: LOSARTAN 50MG TABLET PO SCH (09:00)
[2022-12-13] MEDS ORDERED: ASCORBIC ACID 500 MG TAB PO SCH (09:00)
[2022-12-13] MEDS ORDERED: METOPROLOL SUCC (TopROL XL) 100MG *XL* TAB PO SCH (09:00)
[2022-12-13] MEDS: DOCUSATE SODIUM 100MG CAPSULE PO SCH ×2 (09:00→09:09)
[2022-12-13] MEDS: LACTOBACILLUS ACIDOPHILUS CAP (BACID) PO SCH ×2 (09:08→12:35)
[2022-12-13] MEDS: GABAPENTIN 100 MG CAP PO SCH ×2 (09:09→17:07)
[2022-12-13] MEDS: LR 2,000 ML IV SCH (10:37)
[2022-12-13] MEDS ORDERED: PRED10TA2 PO (16:13)
[2022-12-13] MEDS ORDERED: LEVO1TAB40 PO (16:13)
[2022-12-13] MEDS ORDERED: VANC125C3 PO (16:19)
[2022-12-15 16:13] LABS: BODY FLUID CULTURE Not indicated. (.); ORGANISM ID Not indicated. (.); SPECIMEN SOURCE Urine (.); URINE STREP PNEUMONIAE ANTIGEN Negative (Negative)
== END 2022-12-13 18:40 | disposition home health service (06) | DRG 189 ==
LOC: M ED 11:42 → M PCU 16:27 → ENRESERV 16:53
PROVIDERS: ADMIT Student in an Organized Health Care Education/Training Program; ATTEND Internal Medicine
DX: J96.21 Acute and chronic respiratory failure with hypoxia (principal); J18.9 Pneumonia, unspecified organism; C19 Malignant neoplasm of rectosigmoid junction; I50.32 Chronic diastolic (congestive) heart failure; R74.01 Elevation of levels of liver transaminase levels; I11.0 Hypertensive heart disease with heart failure; E78.5 Hyperlipidemia, unspecified; K21.9 Gastro-esophageal reflux disease without esophagitis; E03.9 Hypothyroidism, unspecified; G62.0 Drug-induced polyneuropathy; Z98.84 Bariatric surgery status; R19.7 Diarrhea, unspecified; T45.1X5A Adverse effect of antineoplastic and immunosuppressive drugs, initial encounter; Z98.41 Cataract extraction status, right eye; Z98.42 Cataract extraction status, left eye; Z95.828 Presence of other vascular implants and grafts; Z90.49 Acquired absence of other specified parts of digestive tract; D64.9 Anemia, unspecified; G89.3 Neoplasm related pain (acute) (chronic); F32.A Depression, unspecified; F41.9 Anxiety disorder, unspecified; Z79.890 Hormone replacement therapy; Z79.899 Other long term (current) drug therapy; Z88.8 Allergy status to other drugs, medicaments and biological substances

== ENCOUNTER → 2023-01-27 | Outpatient (CLI) | payer OTHER ==
[~2023-01-27] MED LIST changes: +ACET325T43 PO; +ANTACID PO; +DICL100G10 TOP; -DICL1GEL3 TOP; +DIPHEN PO; +FLUC150T9 PO; +GABA-282; +LEVO1TAB40 PO; +LIDO PO; +NEUR100C PO; +NEUR300C PO; +PRED10TA2 PO
== END ==
LOC: M RAD 10:12
PROVIDERS: ATTEND Internal Medicine Pulmonary Disease
DX: R91.8 Other nonspecific abnormal finding of lung field (principal)

== ENCOUNTER → 2023-02-28 | Outpatient (CLI) | payer OTHER ==
[~2023-02-28] VITALS: Ht 154.9 cm; Wt 70.6 kg
[~2023-02-28] MED LIST changes: -GABA-282; +GABA-282 PO
[2023-02-28 09:36] VITALS: BP 144/79; TEMP 97.3; O2SAT 95
== END ==
LOC: M PAL 09:31
PROVIDERS: ATTEND Nurse Practitioner Adult Health
DX: C18.7 Malignant neoplasm of sigmoid colon (principal); M25.552 Pain in left hip; M79.605 Pain in left leg; Z51.5 Encounter for palliative care; G89.3 Neoplasm related pain (acute) (chronic); M79.603 Pain in arm, unspecified; M54.2 Cervicalgia; R10.13 Epigastric pain; R63.0 Anorexia; R19.7 Diarrhea, unspecified; R63.4 Abnormal weight loss; Z86.19 Personal history of other infectious and parasitic diseases; Z87.01 Personal history of pneumonia (recurrent); Z79.1 Long term (current) use of non-steroidal anti-inflammatories (NSAID); Z79.890 Hormone replacement therapy; Z79.891 Long term (current) use of opiate analgesic; Z79.899 Other long term (current) drug therapy; Z88.8 Allergy status to other drugs, medicaments and biological substances; Z80.0 Family history of malignant neoplasm of digestive organs; Z80.3 Family history of malignant neoplasm of breast; Z90.49 Acquired absence of other specified parts of digestive tract; Z98.84 Bariatric surgery status; Z92.21 Personal history of antineoplastic chemotherapy

== ENCOUNTER 2023-04-03 12:38 | Day surgery (SDC) | payer OTHER ==
[~2023-04-03] VITALS: Ht 154.9 cm; Wt 67.8 kg
[~2023-04-03 12:38] MED LIST changes: +NS 1,000 ML IV ONE; +medical marijuana
[2023-04-03] MEDS ORDERED: propofoL 200 MG/20 ML VIAL As Ordered ONE (13:09)
[2023-04-03] MEDS ORDERED: LIDOCAINE 2% 100MG/5ML SDV (FOR ANES.) As Ordered ONE (13:09)
[2023-04-03] MEDS ORDERED: fentaNYL 100 MCG/2 ML INJECTION As Ordered ONE (13:24)
[2023-04-03 14:24] VITALS: BP 127/70; O2SAT 95
[2023-04-04] MEDS ORDERED: GABA-1171 PO (12:08)
[2023-04-04] MEDS ORDERED: MAGICMW SSP (12:09)
== END 2023-04-03 14:30 | disposition home or self-care (01) ==
LOC: M OPP 12:38
PROVIDERS: ATTEND Internal Medicine Gastroenterology
DX: Z12.11 Encounter for screening for malignant neoplasm of colon (principal); Z85.038 Personal history of other malignant neoplasm of large intestine; Z98.0 Intestinal bypass and anastomosis status; K64.0 First degree hemorrhoids; Z98.84 Bariatric surgery status; K31.89 Other diseases of stomach and duodenum; K22.89 Other specified disease of esophagus; R10.13 Epigastric pain; G47.30 Sleep apnea, unspecified; Z79.02 Long term (current) use of antithrombotics/antiplatelets; Z79.1 Long term (current) use of non-steroidal anti-inflammatories (NSAID); Z79.83 Long term (current) use of bisphosphonates; Z79.890 Hormone replacement therapy; Z79.891 Long term (current) use of opiate analgesic; Z79.899 Other long term (current) drug therapy; Z88.8 Allergy status to other drugs, medicaments and biological substances
CPT/HCPCS: 43239; 45378; 88305; J3010

== ENCOUNTER → 2023-04-11 | Outpatient (CLI) | payer OTHER ==
[~2023-04-11] VITALS: Ht 154.9 cm; Wt 72.7 kg
[~2023-04-11] MED LIST changes: -NS 1,000 ML IV ONE
[2023-04-11 10:04] VITALS: BP 155/89; O2SAT 96
== END ==
LOC: M PAL 09:55
PROVIDERS: ATTEND Nurse Practitioner Adult Health
DX: C18.7 Malignant neoplasm of sigmoid colon (principal); M25.552 Pain in left hip; M79.605 Pain in left leg; M79.603 Pain in arm, unspecified; G62.9 Polyneuropathy, unspecified; G89.29 Other chronic pain; G62.0 Drug-induced polyneuropathy; G89.3 Neoplasm related pain (acute) (chronic); R63.0 Anorexia; R63.4 Abnormal weight loss; Z51.5 Encounter for palliative care; Z79.1 Long term (current) use of non-steroidal anti-inflammatories (NSAID); Z79.890 Hormone replacement therapy; Z79.891 Long term (current) use of opiate analgesic; Z79.899 Other long term (current) drug therapy; Z88.8 Allergy status to other drugs, medicaments and biological substances; Z80.0 Family history of malignant neoplasm of digestive organs; Z80.3 Family history of malignant neoplasm of breast; Z90.49 Acquired absence of other specified parts of digestive tract; Z98.84 Bariatric surgery status; Z92.21 Personal history of antineoplastic chemotherapy; Z90.710 Acquired absence of both cervix and uterus

== ENCOUNTER → 2023-05-09 | Outpatient (CLI) | payer OTHER | LOC: M WHC 13:33 | PROVIDERS: ATTEND Family Medicine | DX: M85.80 Other specified disorders of bone density and structure, unspecified site (principal); Z12.31 Encounter for screening mammogram for malignant neoplasm of breast ==

== ENCOUNTER → 2023-05-10 | Outpatient (REF) | payer OTHER ==
[2023-05-10 15:26] LABS: URIC ACID 5.3 MG/DL (3.1-7.8)
[2023-05-10 15:28] LABS: MAGNESIUM LEVEL 1.7 MG/DL (1.8-2.4)
[2023-05-10 15:31] LABS: FREE T4 1.37 NG/DL (0.89-1.76); THYROID STIMULATING HORMONE 2.156 uIU/ML (0.55-4.78)
[2023-05-10 15:32] LABS: TOTAL 25(OH) VITAMIN D 45.9 NG/ML (20.0-100.0)
== END ==
LOC: M LAB REF 13:32
PROVIDERS: ATTEND Family Medicine
DX: E55.9 Vitamin D deficiency, unspecified (principal); I10 Essential (primary) hypertension; E03.9 Hypothyroidism, unspecified

== ENCOUNTER → 2023-05-15 | Outpatient (CLI) | payer OTHER ==
[2023-05-15 13:47] LABS: ABG HCO3 24.2 MMOL/L (22.0-26.0); ABG O2 SATURATION 95.2 % (95.0-99.0); ABG PARTIAL PRESSURE CO2 38.1 mmHg (35.0-45.0); ABG PARTIAL PRESSURE O2 78.1 mmHg (75.0-100.0); ABG STANDARD HCO3 24.5 MMOL/L. (22.0-26.0); ABG TOTAL CO2 25.4 MMOL/L (23.0-31.0); ABG pH (ARTERIAL) 7.421 UNITS (7.350-7.450)
== END ==
LOC: M LAB 12:39
PROVIDERS: ATTEND Internal Medicine Pulmonary Disease
DX: R09.02 Hypoxemia (principal)

== ENCOUNTER → 2023-05-15 | Outpatient (CLI) | payer OTHER | LOC: M SLEEP HO 12:34 | PROVIDERS: ATTEND Internal Medicine Pulmonary Disease | DX: G47.33 Obstructive sleep apnea (adult) (pediatric) (principal) ==

== ENCOUNTER → 2023-05-17 | Outpatient (CLI) | payer OTHER | LOC: M WHC 09:48 | PROVIDERS: ATTEND Family Medicine | DX: Z12.31 Encounter for screening mammogram for malignant neoplasm of breast (principal) | CPT/HCPCS: 77065; G0279 ==

== ENCOUNTER → 2023-06-07 | Outpatient (CLI) | payer OTHER ==
[~2023-06-07] VITALS: Ht 152.4 cm; Wt 70.8 kg
[2023-06-07 10:30] VITALS: BP 135/84; O2SAT 96
== END ==
LOC: M PAL 10:19
PROVIDERS: ATTEND Nurse Practitioner Adult Health
DX: C18.7 Malignant neoplasm of sigmoid colon (principal); G62.9 Polyneuropathy, unspecified; G89.29 Other chronic pain; G62.0 Drug-induced polyneuropathy; G89.3 Neoplasm related pain (acute) (chronic); R19.8 Other specified symptoms and signs involving the digestive system and abdomen; R63.0 Anorexia; R63.4 Abnormal weight loss; Z51.5 Encounter for palliative care; Z79.890 Hormone replacement therapy; Z79.891 Long term (current) use of opiate analgesic; Z79.899 Other long term (current) drug therapy; Z88.8 Allergy status to other drugs, medicaments and biological substances; Z80.0 Family history of malignant neoplasm of digestive organs; Z80.3 Family history of malignant neoplasm of breast; Z90.49 Acquired absence of other specified parts of digestive tract; Z98.84 Bariatric surgery status; Z92.21 Personal history of antineoplastic chemotherapy; Z90.710 Acquired absence of both cervix and uterus

== ENCOUNTER → 2023-08-07 | Outpatient (CLI) | payer OTHER ==
[~2023-08-07] MED LIST changes: +ALEN70TA82 PO; +PANT20TA6 PO
== END ==
LOC: M PLARAD 09:13
PROVIDERS: ATTEND Nurse Practitioner
DX: C18.7 Malignant neoplasm of sigmoid colon (principal)
CPT/HCPCS: 78815; A9552

== ENCOUNTER → 2023-08-09 | Outpatient (CLI) | payer OTHER ==
[~2023-08-09] VITALS: Ht 154.9 cm; Wt 73.0 kg
[2023-08-09 09:44] VITALS: BP 143/93; O2SAT 97
== END ==
LOC: M PAL 09:36
PROVIDERS: ATTEND Nurse Practitioner Adult Health
DX: G89.29 Other chronic pain (principal); G89.3 Neoplasm related pain (acute) (chronic); C18.7 Malignant neoplasm of sigmoid colon; G62.9 Polyneuropathy, unspecified; M54.2 Cervicalgia; M25.559 Pain in unspecified hip; M79.603 Pain in arm, unspecified; M79.606 Pain in leg, unspecified; G47.30 Sleep apnea, unspecified; R63.0 Anorexia; Z51.5 Encounter for palliative care; Z79.891 Long term (current) use of opiate analgesic; Z79.899 Other long term (current) drug therapy; Z79.890 Hormone replacement therapy; Z80.0 Family history of malignant neoplasm of digestive organs; Z80.3 Family history of malignant neoplasm of breast; Z86.16 Personal history of COVID-19; Z88.1 Allergy status to other antibiotic agents; Z98.84 Bariatric surgery status; Z92.21 Personal history of antineoplastic chemotherapy; Z90.49 Acquired absence of other specified parts of digestive tract; Z90.710 Acquired absence of both cervix and uterus

== ENCOUNTER → 2023-09-27 | Outpatient (REF) | payer OTHER ==
[~2023-09-27] MED LIST changes: +APAP325T4 PO
[2023-09-27 12:10] LABS: BASO % 0.7 % (0.0-1.0); EOS # 0.1 10^3/uL (0.0-0.5); EOS % 2.3 % (0.0-3.0); HEMATOCRIT 39.8 % (36.0-47.0); HEMOGLOBIN 13.6 g/dl (12.0-15.5); LYMPH # 1.6 10^3/uL (1.5-5.0); LYMPH % 28.4 % (24.0-44.0); MEAN CORPUSCULAR HEMOGLOBIN 31.9 pg (27.0-33.0); MEAN CORPUSCULAR HGB CONC 34.2 g/dl (32.0-36.5); MEAN CORPUSCULAR VOLUME 93.2 fl (80.0-96.0); MONO # 0.5 10^3/uL (0.0-0.8); MONO % 8.6 % (2.0-8.0); NEUTROPHILS # 3.4 10^3/uL (1.5-8.5); NEUTROPHILS % 59.8 % (36.0-66.0); PLATELET COUNT, AUTOMATED 217 10^3/uL (150-450); RED BLOOD COUNT 4.27 10^6/uL (4.00-5.40); WHITE BLOOD COUNT 5.7 10^3/uL (4.0-10.0)
[2023-09-27 12:37] LABS: ALBUMIN 3.6 G/DL (3.2-5.2); ALKALINE PHOSPHATASE 79 U/L (46-116); ALT/SGPT 32 U/L (7.0-40); AST/SGOT 24 U/L (<34); BILIRUBIN,TOTAL 0.4 MG/DL (0.3-1.2); BLOOD UREA NITROGEN 13 MG/DL (9-23); CALCIUM LEVEL 9.1 MG/DL (8.3-10.6); CARBON DIOXIDE LEVEL 30 MMOL/L (20-31); CHLORIDE LEVEL 106 MMOL/L (98-107); CREATININE FOR GFR 0.61 MG/DL (0.55-1.30); GLOMERULAR FILTRATION RATE > 60.0 (>45); GLUCOSE, FASTING 113 MG/DL (74-106); POTASSIUM SERUM 3.6 MMOL/L (3.5-5.1); SODIUM LEVEL 139 MMOL/L (136-145); TOTAL PROTEIN 6.7 G/DL (5.7-8.2)
[2023-09-27 12:38] LABS: ALBUMIN 3.7 G/DL (3.2-5.2); BLOOD UREA NITROGEN 14 MG/DL (9-23); CALCIUM LEVEL 8.7 MG/DL (8.3-10.6); CARBON DIOXIDE LEVEL 30 MMOL/L (20-31); CHLORIDE LEVEL 107 MMOL/L (98-107); GLOMERULAR FILTRATION RATE > 60.0 (>45); GLUCOSE, FASTING 109 MG/DL (74-106); MAGNESIUM LEVEL 1.7 MG/DL (1.8-2.4); POTASSIUM SERUM 3.7 MMOL/L (3.5-5.1); SODIUM LEVEL 142 MMOL/L (136-145)
[2023-09-27 12:40] LABS: TOTAL 25(OH) VITAMIN D 36.5 NG/ML (20.0-100.0)
== END ==
LOC: M LAB REF 11:19
PROVIDERS: ATTEND Family Medicine
DX: E55.9 Vitamin D deficiency, unspecified (principal); E83.42 Hypomagnesemia; E87.6 Hypokalemia

== ENCOUNTER → 2023-10-13 | Outpatient (CLI) | payer OTHER ==
[2023-10-13 12:18] LABS: CPK CREATINE PHOSPHOKINASE 39 U/L (34-145)
[2023-10-13 12:24] LABS: ALBUMIN 3.4 G/DL (3.2-5.2); ALKALINE PHOSPHATASE 83 U/L (46-116); ALT/SGPT 33 U/L (7.0-40); AST/SGOT 23 U/L (<34); BILIRUBIN,DIRECT 0.2 MG/DL (<0.4); BILIRUBIN,TOTAL 0.4 MG/DL (0.3-1.2); BLOOD UREA NITROGEN 18 MG/DL (9-23); CALCIUM LEVEL 9.2 MG/DL (8.3-10.6); CARBON DIOXIDE LEVEL 27 MMOL/L (20-31); CHLORIDE LEVEL 108 MMOL/L (98-107); CHOLESTEROL LEVEL 136 MG/DL (<200); CHOLESTEROL RISK RATIO 2.32 (<5); CREATININE FOR GFR 0.64 MG/DL (0.55-1.30); GLOMERULAR FILTRATION RATE > 60.0 (>45); GLUCOSE, FASTING 79 MG/DL (74-106); HDL CHOLESTEROL 58.6 MG/DL (>40); LDL CHOLESTEROL 58.2 MG/DL (<100); MAGNESIUM LEVEL 1.9 MG/DL (1.8-2.4); NON-HDL-C 77.4 MG/DL; POTASSIUM SERUM 3.6 MMOL/L (3.5-5.1); SODIUM LEVEL 141 MMOL/L (136-145); TOTAL 25(OH) VITAMIN D 35.6 NG/ML (20.0-100.0); TOTAL PROTEIN 6.2 G/DL (5.7-8.2); TRIGLYCERIDES LEVEL 96 MG/DL (<150)
== END ==
LOC: M WUC 08:07
PROVIDERS: ATTEND Family Medicine
DX: E87.6 Hypokalemia (principal)

== ENCOUNTER → 2023-10-30 | Outpatient (CLI) | payer OTHER ==
[~2023-10-30] VITALS: Ht 153 cm; Wt 76.6 kg
[2023-10-30 08:08] VITALS: BP 135/81; O2SAT 96
== END ==
LOC: M PAL 08:03
PROVIDERS: ATTEND Nurse Practitioner Adult Health
DX: G89.29 Other chronic pain (principal); G89.3 Neoplasm related pain (acute) (chronic); C18.7 Malignant neoplasm of sigmoid colon; G62.9 Polyneuropathy, unspecified; M54.2 Cervicalgia; M25.559 Pain in unspecified hip; M79.603 Pain in arm, unspecified; M79.606 Pain in leg, unspecified; G47.30 Sleep apnea, unspecified; R63.0 Anorexia; Z51.5 Encounter for palliative care; Z79.891 Long term (current) use of opiate analgesic; Z79.890 Hormone replacement therapy; Z79.899 Other long term (current) drug therapy; Z80.0 Family history of malignant neoplasm of digestive organs; Z80.3 Family history of malignant neoplasm of breast; Z86.16 Personal history of COVID-19; Z88.1 Allergy status to other antibiotic agents; Z92.21 Personal history of antineoplastic chemotherapy; Z90.49 Acquired absence of other specified parts of digestive tract; Z90.710 Acquired absence of both cervix and uterus; Z98.84 Bariatric surgery status; J30.89 Other allergic rhinitis; Z99.89 Dependence on other enabling machines and devices

== ENCOUNTER → 2023-11-07 | Outpatient (CLI) | payer OTHER | LOC: M WHC 09:06 | PROVIDERS: ATTEND Family Medicine | DX: R92.8 Other abnormal and inconclusive findings on diagnostic imaging of breast (principal) ==

== ENCOUNTER → 2023-11-08 | Outpatient (CLI) | payer OTHER | LOC: M SOG 07:51 | PROVIDERS: ATTEND Physician Assistant | DX: M79.641 Pain in right hand (principal); M79.644 Pain in right finger(s) ==

== ENCOUNTER → 2023-11-13 | Outpatient (REF) | payer OTHER | LOC: M LAB REF 11:30 | PROVIDERS: ATTEND Registered Nurse | DX: E83.42 Hypomagnesemia (principal) ==

== ENCOUNTER 2023-11-30 08:44 | Day surgery (SDC) | payer OTHER ==
[~2023-11-30] VITALS: Ht 154.9 cm; Wt 75.8 kg
[~2023-11-30 08:44] MED LIST changes: +LIDOCAINE W/EPINEPHRINE 1% 20ML VIAL XX ONE; +METO1TAB87 PO; +ONDA-284 PO; -ONDA8TAB8 PO; +SODIUM BICARBONATE 8.4% INJ 50MEQ 50ML VIAL XX ONE; +SUCR1ORA
[2023-11-30] MEDS ORDERED: LIDOCAINE W/EPINEPHRINE 1% 20ML VIAL XX ONE (09:10)
[2023-11-30] MEDS ORDERED: SODIUM BICARBONATE 8.4% INJ 50MEQ 50ML VIAL XX ONE (09:10)
[2023-11-30] MEDS: BACITRACIN OINTMENT 30GM TUBE As Ordered ONE (10:18)
[2023-11-30 10:30] VITALS: BP 143/72; TEMP 97.9; O2SAT 98
== END 2023-11-30 10:45 | disposition home or self-care (01) ==
LOC: M SDC 08:44
PROVIDERS: ATTEND Orthopaedic Surgery Hand Surgery
DX: M65.341 Trigger finger, right ring finger (principal); E03.9 Hypothyroidism, unspecified; I10 Essential (primary) hypertension; E78.00 Pure hypercholesterolemia, unspecified; Z85.038 Personal history of other malignant neoplasm of large intestine; G62.9 Polyneuropathy, unspecified; Z79.899 Other long term (current) drug therapy; Z79.890 Hormone replacement therapy; Z98.84 Bariatric surgery status

== ENCOUNTER → 2023-12-06 | Outpatient (CLI) | payer OTHER ==
[~2023-12-06] MED LIST changes: +E-Z-GAS II EFFERVESCENT PACKET (SODIUM BICARB./CITRIC ACID/SIMETHICONE) As Ordered ONE; +E-Z-HD 98% w/w 340GM SUSP BTL As Ordered ONE; +E-Z-PAQUE 96% w/w SUSP 176GM BTL As Ordered ONE; -LIDOCAINE W/EPINEPHRINE 1% 20ML VIAL XX ONE; -SODIUM BICARBONATE 8.4% INJ 50MEQ 50ML VIAL XX ONE
== END ==
LOC: M RAD 08:57
PROVIDERS: ATTEND Surgery
DX: R10.13 Epigastric pain (principal)

== ENCOUNTER → 2023-12-08 | Outpatient (CLI) | payer OTHER ==
[~2023-12-08] MED LIST changes: -E-Z-GAS II EFFERVESCENT PACKET (SODIUM BICARB./CITRIC ACID/SIMETHICONE) As Ordered ONE; -E-Z-HD 98% w/w 340GM SUSP BTL As Ordered ONE; -E-Z-PAQUE 96% w/w SUSP 176GM BTL As Ordered ONE
[2023-12-08 12:15] LABS: BASO % 0.4 % (0.0-1.0); EOS # 0.2 10^3/uL (0.0-0.5); EOS % 2.6 % (0.0-3.0); HEMOGLOBIN 14.1 g/dl (12.0-15.5); LYMPH # 1.4 10^3/uL (1.5-5.0); LYMPH % 20.3 % (24.0-44.0); MEAN CORPUSCULAR HEMOGLOBIN 31.8 pg (27.0-33.0); MEAN CORPUSCULAR HGB CONC 33.6 g/dl (32.0-36.5); MEAN CORPUSCULAR VOLUME 94.6 fl (80.0-96.0); MONO # 0.5 10^3/uL (0.0-0.8); MONO % 6.8 % (2.0-8.0); NEUTROPHILS # 4.9 10^3/uL (1.5-8.5); NEUTROPHILS % 69.8 % (36.0-66.0); PLATELET COUNT, AUTOMATED 243 10^3/uL (150-450); RED BLOOD COUNT 4.44 10^6/uL (4.00-5.40); WHITE BLOOD COUNT 7.1 10^3/uL (4.0-10.0)
[2023-12-08 12:18] LABS: HEMOGLOBIN A1c 5.3 % (4.0-6.0)
[2023-12-08 12:42] LABS: FERRITIN 82.3 NG/ML (7.3-270.7); THYROID STIMULATING HORMONE 2.203 uIU/ML (0.55-4.78)
[2023-12-08 12:43] LABS: TOTAL 25(OH) VITAMIN D 36.4 NG/ML (20.0-100.0); TOTAL IRON BINDING CAPACITY 323 UG/DL (250-425)
[2023-12-08 12:44] LABS: ALBUMIN 3.7 G/DL (3.2-5.2); ALKALINE PHOSPHATASE 77 U/L (46-116); ALT/SGPT 44 U/L (7.0-40); AST/SGOT 27 U/L (<34); BILIRUBIN,TOTAL 0.5 MG/DL (0.3-1.2); BLOOD UREA NITROGEN 14 MG/DL (9-23); CALCIUM LEVEL 9.1 MG/DL (8.3-10.6); CARBON DIOXIDE LEVEL 27 MMOL/L (20-31); CHLORIDE LEVEL 107 MMOL/L (98-107); CHOLESTEROL LEVEL 158 MG/DL (<200); CHOLESTEROL RISK RATIO 3.21 (<5); CREATININE FOR GFR 0.64 MG/DL (0.55-1.30); GLOMERULAR FILTRATION RATE > 60.0 (>45); GLUCOSE, FASTING 104 MG/DL (74-106); HDL CHOLESTEROL 49.2 MG/DL (>40); IRON (FE) 86 UG/DL (50-170); LDL CHOLESTEROL 81.4 MG/DL (<100); NON-HDL-C 108.8 MG/DL; PERCENT SATURATION 26.6 % (13.2-45.0); POTASSIUM SERUM 3.6 MMOL/L (3.5-5.1); SODIUM LEVEL 141 MMOL/L (136-145); TOTAL PROTEIN 6.3 G/DL (5.7-8.2); TRIGLYCERIDES LEVEL 137 MG/DL (<150)
[2023-12-08 12:45] LABS: VITAMIN B12 LEVEL 767 PG/ML (211-911)
== END ==
LOC: M LAB 10:19
PROVIDERS: ATTEND Surgery
DX: R10.13 Epigastric pain (principal); Z98.84 Bariatric surgery status

== ENCOUNTER → 2024-01-23 | Outpatient (CLI) | payer OTHER ==
[~2024-01-23] VITALS: Ht 152.4 cm; Wt 80.3 kg
[2024-01-23 08:08] VITALS: BP 164/84; O2SAT 97
== END ==
LOC: M PAL 07:59
PROVIDERS: ATTEND Nurse Practitioner Adult Health
DX: C18.7 Malignant neoplasm of sigmoid colon (principal); G89.29 Other chronic pain; G89.3 Neoplasm related pain (acute) (chronic); G62.9 Polyneuropathy, unspecified; R10.84 Generalized abdominal pain; M54.2 Cervicalgia; M25.559 Pain in unspecified hip; M79.604 Pain in right leg; M79.621 Pain in right upper arm; G47.30 Sleep apnea, unspecified; R63.0 Anorexia; Z51.5 Encounter for palliative care; Z79.891 Long term (current) use of opiate analgesic; Z79.890 Hormone replacement therapy; Z79.899 Other long term (current) drug therapy; Z80.0 Family history of malignant neoplasm of digestive organs; Z80.3 Family history of malignant neoplasm of breast; Z86.16 Personal history of COVID-19; Z88.1 Allergy status to other antibiotic agents; Z92.21 Personal history of antineoplastic chemotherapy; Z90.49 Acquired absence of other specified parts of digestive tract; Z90.710 Acquired absence of both cervix and uterus; Z98.84 Bariatric surgery status; Z99.89 Dependence on other enabling machines and devices

== ENCOUNTER → 2024-02-21 | Outpatient (CLI) | payer OTHER ==
[~2024-02-21] MED LIST changes: +GASTROGRAFIN SOLUTION 30ML As Ordered ONE; +ISOVUE-370 76% 100ML VIAL As Ordered ONE
== END ==
LOC: M RAD 09:12
PROVIDERS: ATTEND Specialist
DX: C18.9 Malignant neoplasm of colon, unspecified (principal); R16.0 Hepatomegaly, not elsewhere classified; K76.0 Fatty (change of) liver, not elsewhere classified
CPT/HCPCS: 74177; Q9963; Q9967

== ENCOUNTER 2024-03-08 15:11 | Emergency (ER) | payer OTHER ==
[~2024-03-08] VITALS: Ht 152.4 cm; Wt 79.6 kg
[~2024-03-08 15:11] MED LIST changes: -GASTROGRAFIN SOLUTION 30ML As Ordered ONE; -ISOVUE-370 76% 100ML VIAL As Ordered ONE
[2024-03-08] MEDS: methocarbamoL 500 MG TAB PO ONE (18:21)
[2024-03-08] MEDS: ACETAMINOPHEN *IV* 1,000 MG in IV 1 EA IV ONE (18:21)
[2024-03-08 18:51] LABS: BASO # 0.1 10^3/uL (0.0-0.2); BASO % 0.7 % (0.0-1.0); EOS # 0.2 10^3/uL (0.0-0.5); EOS % 2.4 % (0.0-3.0); HEMATOCRIT 40.3 % (36.0-47.0); HEMOGLOBIN 13.8 g/dl (12.0-15.5); LYMPH # 2.3 10^3/uL (1.5-5.0); LYMPH % 33.4 % (24.0-44.0); MEAN CORPUSCULAR HGB CONC 34.2 g/dl (32.0-36.5); MEAN CORPUSCULAR VOLUME 93.5 fl (80.0-96.0); MONO # 0.7 10^3/uL (0.0-0.8); MONO % 9.9 % (2.0-8.0); NEUTROPHILS # 3.6 10^3/uL (1.5-8.5); NEUTROPHILS % 53.5 % (36.0-66.0); PLATELET COUNT, AUTOMATED 254 10^3/uL (150-450); RED BLOOD COUNT 4.31 10^6/uL (4.00-5.40); WHITE BLOOD COUNT 6.8 10^3/uL (4.0-10.0)
[2024-03-08] MEDS ORDERED: PROHANCE 279.3MG/ML 15ML VIAL As Ordered ONE (19:04)
[2024-03-08 19:22] LABS: BLOOD UREA NITROGEN 17 MG/DL (9-23); CALCIUM LEVEL 9.1 MG/DL (8.3-10.6); CARBON DIOXIDE LEVEL 29 MMOL/L (20-31); CHLORIDE LEVEL 105 MMOL/L (98-107); CREATININE FOR GFR 0.76 MG/DL (0.55-1.30); GLOMERULAR FILTRATION RATE > 60.0 (>45); GLUCOSE, FASTING 88 MG/DL (74-106); POTASSIUM SERUM 3.9 MMOL/L (3.5-5.1); SODIUM LEVEL 139 MMOL/L (136-145)
[2024-03-08] MEDS: MORPHINE 4 MG/ML 1ML VIAL IV ONE (21:44)
[2024-03-08] MEDS: ONDANSETRON 4MG 2ML VIAL IV PRN (23:29)
[2024-03-09] MEDS ORDERED: IBUP-1022 PO (00:03)
[2024-03-09] MEDS ORDERED: METH-1164 PO (00:03)
[2024-03-09 00:15] VITALS: BP 145/94; TEMP 96.7; O2SAT 95
== END 2024-03-09 00:23 | disposition home or self-care (01) ==
LOC: M ED 15:11
DX: M54.2 Cervicalgia (principal); I50.22 Chronic systolic (congestive) heart failure; I11.0 Hypertensive heart disease with heart failure; E78.5 Hyperlipidemia, unspecified; E03.9 Hypothyroidism, unspecified; K21.9 Gastro-esophageal reflux disease without esophagitis; Z88.8 Allergy status to other drugs, medicaments and biological substances; Z91.09 Other allergy status, other than to drugs and biological substances; Z79.1 Long term (current) use of non-steroidal anti-inflammatories (NSAID); Z79.899 Other long term (current) drug therapy
CPT/HCPCS: 70549; 80048; 85025; 93975; 96365; 96374; 96375; 99284; A9576; J0131; J2405

== ENCOUNTER 2024-03-18 07:28 | Day surgery (SDC) | payer OTHER ==
[~2024-03-18] VITALS: Ht 152.4 cm; Wt 78.9 kg
[~2024-03-18 07:28] MED LIST changes: +IBUP-1022 PO; +METH-1164 PO; +NS 1,000 ML IV ONE
[2024-03-18] MEDS ORDERED: propofoL 200 MG/20 ML VIAL As Ordered ONE (08:47)
[2024-03-18] MEDS ORDERED: LIDOCAINE 2% 100MG/5ML SDV (FOR ANES.) As Ordered ONE (08:47)
[2024-03-18] MEDS ORDERED: fentaNYL 100 MCG/2 ML INJECTION As Ordered ONE (08:47)
[2024-03-18 09:44] VITALS: BP 134/67; O2SAT 97
== END 2024-03-18 09:49 | disposition home or self-care (01) ==
LOC: M OPP 07:28
PROVIDERS: ATTEND Internal Medicine Gastroenterology
DX: K64.0 First degree hemorrhoids (principal); Z98.0 Intestinal bypass and anastomosis status; K57.30 Diverticulosis of large intestine without perforation or abscess without bleeding; Z85.038 Personal history of other malignant neoplasm of large intestine; R12 Heartburn; K22.89 Other specified disease of esophagus; Z98.84 Bariatric surgery status; F12.10 Cannabis abuse, uncomplicated; F10.10 Alcohol abuse, uncomplicated; F41.9 Anxiety disorder, unspecified; F32.A Depression, unspecified; E03.9 Hypothyroidism, unspecified; I10 Essential (primary) hypertension; G47.33 Obstructive sleep apnea (adult) (pediatric); Z91.09 Other allergy status, other than to drugs and biological substances; Z79.899 Other long term (current) drug therapy
CPT/HCPCS: 43239; 45380; 88305; J3010

== ENCOUNTER → 2024-04-02 | Outpatient (CLI) | payer OTHER ==
[~2024-04-02] MED LIST changes: +DICY-61 PO; +GABA-1172 PO; -GABA-282 PO; -NS 1,000 ML IV ONE; -ROSU20TA61 PO; +ROSU20TA86 PO
== END ==
LOC: M PAL 07:40
PROVIDERS: ATTEND Nurse Practitioner Family
DX: G89.3 Neoplasm related pain (acute) (chronic) (principal); C18.7 Malignant neoplasm of sigmoid colon; R10.13 Epigastric pain; J06.9 Acute upper respiratory infection, unspecified; J30.89 Other allergic rhinitis; Z51.5 Encounter for palliative care; Z86.16 Personal history of COVID-19; Z88.8 Allergy status to other drugs, medicaments and biological substances; Z80.0 Family history of malignant neoplasm of digestive organs; Z80.3 Family history of malignant neoplasm of breast; Z98.84 Bariatric surgery status; Z90.49 Acquired absence of other specified parts of digestive tract; Z79.890 Hormone replacement therapy; Z79.899 Other long term (current) drug therapy; Z79.891 Long term (current) use of opiate analgesic; Z92.21 Personal history of antineoplastic chemotherapy

== ENCOUNTER → 2024-05-14 | Outpatient (CLI) | payer OTHER ==
[~2024-05-14] VITALS: Ht 154.9 cm; Wt 77.0 kg
[~2024-05-14] MED LIST changes: +LIDOCAINE 1% MDV 20ML VIAL As Ordered ONE; +LIDOCAINE W/EPINEPHRINE 1% 20ML VIAL As Ordered ONE; +MIDAZOLAM INJ 2MG/2ML VIAL As Ordered ONE; +ceFAZolin 2 GM/D5W 50 ML IV BAG As Ordered ONE; +fentaNYL 100 MCG/2 ML INJECTION As Ordered ONE
[2024-05-14 14:35] VITALS: TEMP 97.6
[2024-05-14] MEDS: ceFAZolin SOD 2 GM in IV 1 EA IV ONE (15:37)
[2024-05-14 16:40] VITALS: BP 123/63; O2SAT 96
== END ==
LOC: M IRPRO 14:25
PROVIDERS: ATTEND Specialist
DX: C18.9 Malignant neoplasm of colon, unspecified (principal)
CPT/HCPCS: 36590; 99152; 99153; J0690; J2250; J3010

== ENCOUNTER → 2024-06-06 | Outpatient (CLI) | payer OTHER ==
[~2024-06-06] MED LIST changes: -LIDOCAINE 1% MDV 20ML VIAL As Ordered ONE; -LIDOCAINE W/EPINEPHRINE 1% 20ML VIAL As Ordered ONE; -MIDAZOLAM INJ 2MG/2ML VIAL As Ordered ONE; -ceFAZolin 2 GM/D5W 50 ML IV BAG As Ordered ONE; -fentaNYL 100 MCG/2 ML INJECTION As Ordered ONE
== END ==
LOC: M PAL 09:41
PROVIDERS: ATTEND Nurse Practitioner Adult Health
DX: Z51.5 Encounter for palliative care (principal); G89.3 Neoplasm related pain (acute) (chronic); G89.29 Other chronic pain; C18.7 Malignant neoplasm of sigmoid colon; R63.0 Anorexia; M54.2 Cervicalgia; M79.603 Pain in arm, unspecified; M25.559 Pain in unspecified hip; M79.606 Pain in leg, unspecified; G47.39 Other sleep apnea; Z86.16 Personal history of COVID-19; Z88.8 Allergy status to other drugs, medicaments and biological substances; J30.89 Other allergic rhinitis; Z80.0 Family history of malignant neoplasm of digestive organs; Z80.3 Family history of malignant neoplasm of breast; Z98.84 Bariatric surgery status; Z90.49 Acquired absence of other specified parts of digestive tract; Z79.890 Hormone replacement therapy; Z79.899 Other long term (current) drug therapy; Z79.891 Long term (current) use of opiate analgesic; Z92.21 Personal history of antineoplastic chemotherapy; Z99.89 Dependence on other enabling machines and devices; R29.6 Repeated falls

== ENCOUNTER → 2024-07-11 | Outpatient (CLI) | payer OTHER ==
[2024-07-11 10:46] LABS: BASO # 0.1 10^3/uL (0.0-0.2); BASO % 0.8 % (0.0-1.0); EOS # 0.2 10^3/uL (0.0-0.5); EOS % 3.3 % (0.0-3.0); HEMATOCRIT 42.1 % (36.0-47.0); HEMOGLOBIN 14.1 g/dl (12.0-15.5); LYMPH # 2.1 10^3/uL (1.5-5.0); LYMPH % 31.7 % (24.0-44.0); MEAN CORPUSCULAR HEMOGLOBIN 30.7 pg (27.0-33.0); MEAN CORPUSCULAR HGB CONC 33.5 g/dl (32.0-36.5); MEAN CORPUSCULAR VOLUME 91.7 fl (80.0-96.0); MONO # 0.5 10^3/uL (0.0-0.8); MONO % 8.2 % (2.0-8.0); NEUTROPHILS # 3.7 10^3/uL (1.5-8.5); NEUTROPHILS % 55.7 % (36.0-66.0); PLATELET COUNT, AUTOMATED 271 10^3/uL (150-450); RED BLOOD COUNT 4.59 10^6/uL (4.00-5.40); WHITE BLOOD COUNT 6.6 10^3/uL (4.0-10.0)
[2024-07-11 11:10] LABS: URIC ACID 5.3 MG/DL (3.1-7.8)
[2024-07-11 11:11] LABS: CREATININE, URINE 187.4 MG/DL; MALB URINE SIEMENS < 3.0 MG/L
[2024-07-11 11:13] LABS: CPK CREATINE PHOSPHOKINASE 47 U/L (34-145)
[2024-07-11 11:14] LABS: ALBUMIN 3.9 G/DL (3.2-5.2); ALKALINE PHOSPHATASE 93 U/L (35-104); ALT/SGPT 26 U/L (7.0-40); AST/SGOT 19 U/L (<34); BILIRUBIN,TOTAL 0.5 MG/DL (0.3-1.2); BLOOD UREA NITROGEN 22 MG/DL (9-23); CALCIUM LEVEL 9.6 MG/DL (8.3-10.6); CARBON DIOXIDE LEVEL 28 MMOL/L (20-31); CHLORIDE LEVEL 106 MMOL/L (98-107); CREATININE FOR GFR 0.65 MG/DL (0.55-1.30); FREE T3 3.2 PG/ML (2.3-4.2); GLOMERULAR FILTRATION RATE > 60.0 (>45); GLUCOSE, FASTING 103 MG/DL (74-106); SODIUM LEVEL 145 MMOL/L (136-145); THYROID STIMULATING HORMONE 1.894 uIU/ML (0.55-4.78); TOTAL 25(OH) VITAMIN D 42.9 NG/ML (20.0-100.0); TOTAL PROTEIN 7.1 G/DL (5.7-8.2)
[2024-07-11 11:17] LABS: FREE T4 1.38 NG/DL (0.89-1.76)
== END ==
LOC: M LAB 09:49
PROVIDERS: ATTEND Family Medicine
DX: E55.9 Vitamin D deficiency, unspecified (principal); E78.2 Mixed hyperlipidemia; R53.83 Other fatigue; I10 Essential (primary) hypertension; E03.9 Hypothyroidism, unspecified

== ENCOUNTER → 2024-07-11 | Outpatient (CLI) | payer OTHER | LOC: M WHC 10:30 | PROVIDERS: ATTEND Registered Nurse | DX: Z12.31 Encounter for screening mammogram for malignant neoplasm of breast (principal) ==

== ENCOUNTER 2024-08-14 10:43 | Emergency (ER) | payer OTHER ==
[~2024-08-14] VITALS: Ht 152.4 cm; Wt 83.3 kg
[2024-08-14 13:27] VITALS: BP 107/72; TEMP 96.5; O2SAT 95
[2024-08-16] MEDS ORDERED: NORT10CA2 PO (08:07)
[2024-08-16] MEDS ORDERED: TIZA10TA PO (08:07)
[2024-08-16] MEDS ORDERED: SYNT75TA PO (08:07)
[2024-08-16] MEDS ORDERED: HYDR-3713 PO (08:07)
[2024-08-16] MEDS ORDERED: HYDR-3363 PO (08:07)
[2024-08-16] MEDS ORDERED: VITA500C24 PO (13:29)
[2024-08-16] MEDS ORDERED: VITA100093 PO (13:29)
== END 2024-08-14 13:29 | disposition home or self-care (01) ==
LOC: M ED 10:43
DX: R07.89 Other chest pain (principal); S20.211A Contusion of right front wall of thorax, initial encounter; Y92.9 Unspecified place or not applicable; Y93.9 Activity, unspecified; Y99.9 Unspecified external cause status; E11.9 Type 2 diabetes mellitus without complications; E78.5 Hyperlipidemia, unspecified; K21.9 Gastro-esophageal reflux disease without esophagitis; I50.22 Chronic systolic (congestive) heart failure; Z88.8 Allergy status to other drugs, medicaments and biological substances; Z91.09 Other allergy status, other than to drugs and biological substances; Z79.1 Long term (current) use of non-steroidal anti-inflammatories (NSAID); Z79.899 Other long term (current) drug therapy

== ENCOUNTER → 2024-08-14 | Outpatient (CLI) | payer OTHER ==
[~2024-08-14] MED LIST changes: +VANC125C13 PO; -VANC125C3 PO
[2024-08-14 17:24] LABS: HEMATOCRIT 40.9 % (36.0-47.0); MEAN CORPUSCULAR HEMOGLOBIN 31.1 pg (27.0-33.0); MEAN CORPUSCULAR HGB CONC 34.2 g/dl (32.0-36.5); MEAN CORPUSCULAR VOLUME 90.9 fl (80.0-96.0); PLATELET COUNT, AUTOMATED 280 10^3/uL (150-450); WHITE BLOOD COUNT 6.3 10^3/uL (4.0-10.0)
[2024-08-14 17:45] LABS: CORTISOL PM 6.9 UG/DL (3.1-16.7)
[2024-08-14 17:49] LABS: ALBUMIN 3.8 G/DL (3.2-5.2); ALKALINE PHOSPHATASE 85 U/L (35-104); ALT/SGPT 35 U/L (7.0-40); AST/SGOT 22 U/L (<34); BILIRUBIN,TOTAL 0.4 MG/DL (0.3-1.2); BLOOD UREA NITROGEN 13 MG/DL (9-23); CALCIUM LEVEL 9.5 MG/DL (8.3-10.6); CARBON DIOXIDE LEVEL 29 MMOL/L (20-31); CHLORIDE LEVEL 104 MMOL/L (98-107); CREATININE FOR GFR 0.65 MG/DL (0.55-1.30); GLOMERULAR FILTRATION RATE > 60.0 (>45); GLUCOSE, FASTING 100 MG/DL (74-106); POTASSIUM SERUM 3.8 MMOL/L (3.5-5.1); SODIUM LEVEL 143 MMOL/L (136-145); TOTAL PROTEIN 6.7 G/DL (5.7-8.2)
[2024-08-14 17:51] LABS: FREE T4 1.44 NG/DL (0.89-1.76); THYROID STIMULATING HORMONE 1.714 uIU/ML (0.55-4.78)
[2024-08-14 18:01] LABS: FOLLICLE STIMULATING HORMONE 48.7 mIU/ML
[2024-08-14 18:02] LABS: ESTRADIOL 22.5 PG/ML; LUTEINIZING HORMONE 36.5 mIU/ML; PROGESTERONE < 0.21 NG/ML
== END ==
LOC: M WUC 13:42
PROVIDERS: ATTEND Obstetrics & Gynecology
DX: N95.1 Menopausal and female climacteric states (principal); E34.9 Endocrine disorder, unspecified; F52.0 Hypoactive sexual desire disorder

== ENCOUNTER → 2024-08-15 | Outpatient (CLI) | payer OTHER ==
[~2024-08-15] VITALS: Ht 153.7 cm; Wt 83.1 kg
[~2024-08-15] MED LIST changes: +HYDR-3363 PO; +NORT10CA2 PO; +SYNT75TA PO; +VITA100093 PO; +VITA500C24 PO
[2024-08-15 14:20] VITALS: BP 171/94; O2SAT 98
== END ==
LOC: M PAL 13:58
PROVIDERS: ATTEND Family Medicine
DX: Z51.5 Encounter for palliative care (principal); C19 Malignant neoplasm of rectosigmoid junction; Z98.0 Intestinal bypass and anastomosis status; Z92.21 Personal history of antineoplastic chemotherapy; Z63.4 Disappearance and death of family member; Z88.6 Allergy status to analgesic agent; Z79.899 Other long term (current) drug therapy; Z79.891 Long term (current) use of opiate analgesic

== ENCOUNTER 2024-08-26 06:11 | Day surgery (SDC) | payer OTHER ==
[~2024-08-26] VITALS: Ht 154.9 cm; Wt 83.5 kg
[2024-08-26] MEDS ORDERED: SODIUM BICARBONATE 8.4% INJ 50MEQ 50ML VIAL XX ONE (07:00)
[2024-08-26] MEDS ORDERED: LIDOCAINE W/EPINEPHRINE 1% 20ML VIAL XX ONE (07:00)
[2024-08-26] MEDS: BACITRACIN OINTMENT 30GM TUBE As Ordered ONE (08:15)
[2024-08-26 08:16] VITALS: BP 157/78; TEMP 97.2; O2SAT 98
== END 2024-08-26 08:36 | disposition home or self-care (01) ==
LOC: M SDC 06:11
PROVIDERS: ATTEND Orthopaedic Surgery Hand Surgery
DX: M65.342 Trigger finger, left ring finger (principal); G47.30 Sleep apnea, unspecified; J30.9 Allergic rhinitis, unspecified; Z88.8 Allergy status to other drugs, medicaments and biological substances; Z79.899 Other long term (current) drug therapy

== ENCOUNTER → 2024-09-02 | Outpatient (CLI) | payer OTHER ==
[~2024-09-02] MED LIST changes: +ISOVUE-370 76% 100ML VIAL As Ordered ONE
== END ==
LOC: M RAD 11:01
PROVIDERS: ATTEND Specialist
DX: C18.9 Malignant neoplasm of colon, unspecified (principal)

== ENCOUNTER → 2024-10-21 | Outpatient (CLI) | payer OTHER ==
[~2024-10-21] VITALS: Ht 154.9 cm; Wt 87.2 kg
[~2024-10-21] MED LIST changes: -AMBI10TA PO; -ISOVUE-370 76% 100ML VIAL As Ordered ONE; +ZOLP-533 PO
[2024-10-21 13:16] VITALS: BP 151/90; O2SAT 96
== END ==
LOC: M PAL 13:01
PROVIDERS: ATTEND Physician Assistant
DX: Z51.5 Encounter for palliative care (principal); C18.9 Malignant neoplasm of colon, unspecified; C19 Malignant neoplasm of rectosigmoid junction; D01.2 Carcinoma in situ of rectum; Z48.815 Encounter for surgical aftercare following surgery on the digestive system; K91.89 Other postprocedural complications and disorders of digestive system; Z92.21 Personal history of antineoplastic chemotherapy; Z79.891 Long term (current) use of opiate analgesic; Z91.048 Other nonmedicinal substance allergy status; Z79.899 Other long term (current) drug therapy; Z79.83 Long term (current) use of bisphosphonates

== ENCOUNTER → 2025-01-09 | Outpatient (CLI) | payer OTHER ==
[2025-01-09 17:42] LABS: ALT/SGPT 31 U/L (7.0-40); AST/SGOT 28 U/L (<34); CALCIUM LEVEL 9.1 MG/DL (8.3-10.6); CARBON DIOXIDE LEVEL 26 MMOL/L (20-31); CHLORIDE LEVEL 104 MMOL/L (98-107); CHOLESTEROL LEVEL 168 MG/DL (<200); CHOLESTEROL RISK RATIO 2.70 (<5); CREATININE FOR GFR 0.63 MG/DL (0.55-1.30); GLOMERULAR FILTRATION RATE > 90.0 (>45); LDL CHOLESTEROL 79.2 MG/DL (<100); MAGNESIUM LEVEL 1.8 MG/DL (1.8-2.4); NON-HDL-C 106.0 MG/DL; PHOSPHORUS LEVEL 3.6 MG/DL (2.4-5.1); POTASSIUM SERUM 4.4 MMOL/L (3.5-5.1); SODIUM LEVEL 139 MMOL/L (136-145); TRIGLYCERIDES LEVEL 134 MG/DL (<150)
[2025-01-09 17:44] LABS: FREE T4 1.28 NG/DL (0.89-1.76); TOTAL 25(OH) VITAMIN D 46.5 NG/ML (20.0-100.0); VITAMIN B12 LEVEL 1489 PG/ML (211-911)
[2025-01-09 17:48] LABS: CPK CREATINE PHOSPHOKINASE 32 U/L (34-145)
[2025-01-09 17:52] LABS: BASO # 0.0 10^3/uL (0.0-0.2); BASO % 0.6 % (0.0-1.0); EOS # 0.2 10^3/uL (0.0-0.5); EOS % 2.6 % (0.0-3.0); LYMPH # 1.8 10^3/uL (1.5-5.0); LYMPH % 25.3 % (24.0-44.0); MONO # 0.8 10^3/uL (0.0-0.8); MONO % 10.9 % (2.0-8.0); NEUTROPHILS # 4.2 10^3/uL (1.5-8.5); NEUTROPHILS % 60.3 % (36.0-66.0); PLATELET COUNT, AUTOMATED 332 10^3/uL (150-450)
== END ==
LOC: M WUC 11:57
PROVIDERS: ATTEND Family Medicine
DX: E55.9 Vitamin D deficiency, unspecified (principal); E78.5 Hyperlipidemia, unspecified

== ENCOUNTER → 2025-01-13 | Outpatient (CLI) | payer OTHER ==
[~2025-01-13] VITALS: Ht 162.6 cm; Wt 89.4 kg
[2025-01-13 11:38] VITALS: BP 154/93; O2SAT 97
== END ==
LOC: M PAL 11:21
PROVIDERS: ATTEND Physician Assistant
DX: Z51.5 Encounter for palliative care (principal); C19 Malignant neoplasm of rectosigmoid junction; R11.0 Nausea; R19.7 Diarrhea, unspecified; F32.A Depression, unspecified; F41.9 Anxiety disorder, unspecified; R52 Pain, unspecified; Z79.890 Hormone replacement therapy; Z79.899 Other long term (current) drug therapy; Z88.8 Allergy status to other drugs, medicaments and biological substances; J30.89 Other allergic rhinitis; Z92.21 Personal history of antineoplastic chemotherapy

== ENCOUNTER → 2025-01-15 | Outpatient (CLI) | payer OTHER ==
[2025-01-15 18:53] LABS: BASO # 0.1 10^3/uL (0.0-0.2); BASO % 0.5 % (0.0-1.0); EOS # 0.2 10^3/uL (0.0-0.5); EOS % 1.9 % (0.0-3.0); LYMPH # 1.8 10^3/uL (1.5-5.0); LYMPH % 18.8 % (24.0-44.0); MONO # 0.7 10^3/uL (0.0-0.8); MONO % 7.9 % (2.0-8.0); NEUTROPHILS # 6.6 10^3/uL (1.5-8.5); NEUTROPHILS % 70.7 % (36.0-66.0); PLATELET COUNT, AUTOMATED 317 10^3/uL (150-450)
[2025-01-15 19:02] LABS: ERYTHROCYTE SEDIMENTATION RATE 24 mm/hr (0-30)
== END ==
LOC: M WUC 14:18
PROVIDERS: ATTEND Family Medicine
DX: L03.818 Cellulitis of other sites (principal)

== ENCOUNTER → 2025-02-18 | Outpatient (CLI) | payer OTHER ==
[~2025-02-18] MED LIST changes: -IBUP-1022 PO; +IBUP600T42 PO; +PROHANCE 279.3MG/ML 15ML VIAL ONE; +PROHANCE 279.3MG/ML 5ML VIAL ONE
== END ==
LOC: M PLAIMG 14:44
PROVIDERS: ATTEND Family Medicine
DX: C50.019 Malignant neoplasm of nipple and areola, unspecified female breast (principal)
CPT/HCPCS: A9576; C8908

== ENCOUNTER → 2025-03-12 | Outpatient (CLI) | payer OTHER ==
[~2025-03-12] MED LIST changes: -EZET10TA21 PO; +EZET10TA57 PO; +HYDR-4571; +ISOVUE-370 76% 100 ML VIAL As Ordered ONE; +METO50TA7 PO; +NORT25CA2 PO; -PROHANCE 279.3MG/ML 15ML VIAL ONE; -PROHANCE 279.3MG/ML 5ML VIAL ONE
== END ==
LOC: M RAD 08:29
PROVIDERS: ATTEND Student in an Organized Health Care Education/Training Program
DX: C19 Malignant neoplasm of rectosigmoid junction (principal)

== ENCOUNTER 2025-03-17 07:27 | Day surgery (SDC) | payer OTHER ==
[~2025-03-17] VITALS: Ht 154.9 cm; Wt 88.5 kg
[~2025-03-17 07:27] MED LIST changes: +HYDR-4571 PO; -ISOVUE-370 76% 100 ML VIAL As Ordered ONE
[2025-03-17] MEDS ORDERED: LIDOCAINE 2% 100 MG/5 ML SDV (FOR ANES.) As Ordered ONE (08:23)
[2025-03-17] MEDS ORDERED: GLYCOPYRROLATE INJ 0.2 MG/ML 2 ML VIAL As Ordered ONE (08:23)
[2025-03-17 08:53] VITALS: TEMP 97.3
[2025-03-17 09:05] VITALS: BP 109/63; O2SAT 97
== END 2025-03-17 09:17 | disposition home or self-care (01) ==
LOC: M OPP 07:27
PROVIDERS: ATTEND Internal Medicine Gastroenterology
DX: K64.0 First degree hemorrhoids (principal); K57.30 Diverticulosis of large intestine without perforation or abscess without bleeding; Z98.0 Intestinal bypass and anastomosis status; Z85.038 Personal history of other malignant neoplasm of large intestine; R10.13 Epigastric pain; Z98.84 Bariatric surgery status; G47.30 Sleep apnea, unspecified; Z88.8 Allergy status to other drugs, medicaments and biological substances; Z91.048 Other nonmedicinal substance allergy status; Z79.891 Long term (current) use of opiate analgesic; Z79.899 Other long term (current) drug therapy
CPT/HCPCS: 43239; 45378; 88305; J1596

== ENCOUNTER → 2025-03-24 | Outpatient (CLI) | payer OTHER ==
[~2025-03-24] VITALS: Ht 154.9 cm; Wt 92.7 kg
[2025-03-24 11:32] VITALS: BP 140/80; O2SAT 98
== END ==
LOC: M PAL 11:13
PROVIDERS: ATTEND Physician Assistant
DX: Z51.5 Encounter for palliative care (principal); Z85.3 Personal history of malignant neoplasm of breast; Z92.21 Personal history of antineoplastic chemotherapy; Z79.891 Long term (current) use of opiate analgesic; Z91.048 Other nonmedicinal substance allergy status; Z88.6 Allergy status to analgesic agent; Z79.899 Other long term (current) drug therapy; Z79.52 Long term (current) use of systemic steroids; Z79.83 Long term (current) use of bisphosphonates

== ENCOUNTER → 2025-05-14 | Outpatient (CLI) | payer OTHER ==
[2025-05-14 13:24] LABS: PROGESTERONE < 0.21 NG/ML
[2025-05-14 13:25] LABS: ESTRADIOL 65.7 PG/ML; LUTEINIZING HORMONE 6.4 mIU/ML
== END ==
LOC: M WUC 09:46
PROVIDERS: ATTEND Obstetrics & Gynecology
DX: N95.1 Menopausal and female climacteric states (principal); E34.9 Endocrine disorder, unspecified; F52.0 Hypoactive sexual desire disorder